=== PATIENT | female | born 1930 | race Caucasian/White ===

== ENCOUNTER → 2016-08-27 | Outpatient (REF) | payer MEDICARE ==
[~2016-08-27] MED LIST: /ONDA4TA OR; ASPI81TA83 OR; ATEN50TA2 OR; ATEN50TA2 PO; COZA100T OR; COZAR PO; DIGO0.12 PO; DIGO0.126 OR; DIGO0.257 OR; DONETAB6 PO; ELIQ2.5T PO; HYDR25TA6 OR; LEVO88TA3 PO; LEVOXYL PO; OMEPPOW18 PO; VENTAER IN; VICO5TAB OR; VITAMIN D 3 PO; mineral oil; ocean nasal spray
[2016-08-27 14:16] LABS: VITAMIN B12 LEVEL 432 PG/ML (247-911)
[2016-08-27 14:17] LABS: FOLATE 19.4 NG/ML (>5.4)
== END ==
LOC: M LABNEURO 09:51
PROVIDERS: ATTEND Psychiatry & Neurology Neurology
DX: F03.90 Unspecified dementia, unspecified severity, without behavioral disturbance, psychotic disturbance, mood disturbance, and anxiety (principal); Z11.3 Encounter for screening for infections with a predominantly sexual mode of transmission

== ENCOUNTER → 2016-08-29 | Outpatient (CLI) | payer MEDICARE ==
[~2016-08-29] VITALS: Ht 157.5 cm; Wt 54.4 kg
[~2016-08-29] MED LIST changes: +LIDOCAINE 2% INJ 100 MG/5 ML SDV (FOR ANES.) As Ordered ONE; +NS 1,000 ML IV SCH; +PROPOFOL 200 MG/20 ML VIAL As Ordered ONE
--- NOTE | 2016-08-29 09:23 | ROOR ---
Patient Name: Afshan Howell Procedure Date: 08/29/2016 8:44 AM Date of : 1930 Age: 86 Room: [facility] Gender: Female Note Status: Finalized Procedure: Colonoscopy Indications: Change in bowel habits Providers: Talha Oviedo Jr, MD Referring MD: SVETLANA HOPE MD Requesting Provider: Medicines: Propofol per Anesthesia Complications: No immediate complications. Procedure: Pre-Anesthesia Assessment: - Prior to the procedure, a History and Physical was performed, and patient medications and allergies were reviewed. The patient is competent. The risks and benefits of the procedure and the sedation options and risks were discussed with the patient. All questions were answered and informed consent was obtained. Patient identification and proposed procedure were verified by the physician and the nurse in the pre-procedure area and in the procedure room. Mental Status Examination: alert and oriented. Airway Examination: normal oropharyngeal airway and neck mobility. Respiratory Examination: clear to auscultation. CV Examination: normal. ASA Grade Assessment: II - A patient with mild systemic disease. After reviewing the risks and benefits, the patient was deemed in satisfactory condition to undergo the procedure. The anesthesia plan was to use moderate sedation / analgesia (conscious sedation). Immediately prior to administration of medications, the patient was re-assessed for adequacy to receive sedatives. The heart rate, respiratory rate, oxygen saturations, blood pressure, adequacy of pulmonary ventilation, and response to care were monitored throughout the procedure. The physical status of the patient was re-assessed after the procedure. The Colonoscope was introduced through the anus and advanced to the cecum, identified by appendiceal orifice and ileocecal valve. The colonoscopy was performed without difficulty. The patient tolerated the procedure well. The quality of the bowel preparation was adequate and good. Findings: The perianal and digital rectal examinations were normal. Pertinent negatives include normal sphincter tone, no palpable rectal lesions and no anal lesion or abnormality was detected. Multiple small and large-mouthed diverticula were found in the sigmoid colon. A medium polyp was found in the transverse colon. The polyp was removed with a hot snare. Resection was complete, but the polyp tissue was only partially retrieved. The entire examined colon, rectum, recto-sigmoid colon, descending colon, transverse colon, ascending colon, cecum and appendiceal orifice appeared normal. Impression: - Diverticulosis in the sigmoid colon. - One medium polyp in the transverse colon, removed with a hot snare. Complete resection. Partial retrieval. - The entire examined colon, rectum, recto-sigmoid colon, descending colon, transverse colon, ascending colon, cecum and appendiceal orifice are normal. Recommendation: - Discharge patient to home (ambulatory). - Repeat colonoscopy in 3 years for surveillance. Talha Oviedo MD Talha Oviedo Jr, MD 08/29/2016 9:22:53 AM This report has been signed electronically. Number of Addenda: 0 Note Initiated On: 08/29/2016 8:44 AM Estimated Blood Loss: Estimated blood loss: none.
[2016-08-29 09:25] VITALS: BP 132/69
== END | disposition home or self-care (01) ==
LOC: M OPP 08:00
PROVIDERS: ATTEND Surgery
DX: R19.4 Change in bowel habit (principal); D12.3 Benign neoplasm of transverse colon; K57.30 Diverticulosis of large intestine without perforation or abscess without bleeding; I48.91 Unspecified atrial fibrillation; I10 Essential (primary) hypertension; E03.9 Hypothyroidism, unspecified; K57.92 Diverticulitis of intestine, part unspecified, without perforation or abscess without bleeding; M19.90 Unspecified osteoarthritis, unspecified site; Z95.0 Presence of cardiac pacemaker; Z85.3 Personal history of malignant neoplasm of breast; Z85.118 Personal history of other malignant neoplasm of bronchus and lung; Z92.3 Personal history of irradiation; F03.90 Unspecified dementia, unspecified severity, without behavioral disturbance, psychotic disturbance, mood disturbance, and anxiety; E66.9 Obesity, unspecified; K21.9 Gastro-esophageal reflux disease without esophagitis; Z88.0 Allergy status to penicillin; Z88.2 Allergy status to sulfonamides; Z91.040 Latex allergy status; Z79.899 Other long term (current) drug therapy; Z80.49 Family history of malignant neoplasm of other genital organs

== ENCOUNTER → 2016-08-30 | Outpatient (CLI) | payer MEDICARE ==
[~2016-08-30] MED LIST changes: -LIDOCAINE 2% INJ 100 MG/5 ML SDV (FOR ANES.) As Ordered ONE; -NS 1,000 ML IV SCH; -PROPOFOL 200 MG/20 ML VIAL As Ordered ONE
--- NOTE | 2016-08-30 09:44 | REP ---
CT HEAD WITHOUT CONTRAST: HISTORY: Dementia. COMPARISON: Areas of decreased attenuation are present in the periventricular white matter. This represents small vessel ischemic disease. There is no intraparenchymal hemorrhage, mass or midline shift. The ventricular system and cortical sulci are dilated consistent with mild volume loss. There is no extracerebral collection. The visualized sinuses are clear. IMPRESSION: 1. Small vessel ischemic disease. 2. Mild volume loss. Signed by Alex Lyons MD 08/30/2016 10:36 A
== END ==
LOC: M RAD 08:06
PROVIDERS: ATTEND Psychiatry & Neurology Neurology
DX: R44.1 Visual hallucinations (principal); R44.0 Auditory hallucinations; F02.80 Dementia in other diseases classified elsewhere, unspecified severity, without behavioral disturbance, psychotic disturbance, mood disturbance, and anxiety; G31.83 Neurocognitive disorder with Lewy bodies

== ENCOUNTER → 2016-09-12 | Outpatient (REF) | payer MEDICARE | LOC: M LABDRAW1 11:38 | PROVIDERS: ATTEND Nurse Practitioner Family | DX: I48.91 Unspecified atrial fibrillation (principal); Z51.81 Encounter for therapeutic drug level monitoring; Z79.899 Other long term (current) drug therapy ==

== ENCOUNTER 2016-09-16 16:45 | Emergency (ER) | payer OTHER, MEDICARE ==
[~2016-09-16] VITALS: Ht 162.6 cm; Wt 63.0 kg
[2016-09-16 18:39] VITALS: O2SAT 96
--- NOTE | 2016-09-16 18:57 | REP ---
AP pelvis: Single view: History: Trauma. Findings: There is some diffuse osteopenia. Vascular calcification is observed. Degenerative disc disease is seen at L4-5. The bony pelvic ring is intact. No hip, pelvic, or sacral fracture is seen. There is osteoarthritic spurring at the left hip, more so than right. There is evidence of an old appearing fracture of the inferior pubic ramus on the left. This is unchanged from an old comparison study and 10/11/2011. Impression: No acute fracture seen. Left hip osteoarthritis and degenerative disc disease. Old inferior pubic ramus fracture on the left. Signed by Chato Ojeda MD 09/16/2016 07:39 P
--- NOTE | 2016-09-16 18:57 | REP ---
Chest x-ray: Two views. History: Trauma. Comparison study: September 26, 2015. Findings: A unipolar pacemaker is again seen in the enlarged heart via the left side. Moderate cardiomegaly is observed. There is blunting of the right lateral and posterior pleural angles. This consistent with small bilateral effusion. There is some pleural thickening which appears to be chronic along the lateral chest wall on the right. There are clips in the right upper quadrant. There are degenerative changes in the thoracic spine. Impression: Moderate cardiomegaly with pacemaker. Blunting of the right pleural angles and chronic pleural thickening on the right. No acute abnormality. Signed by Chato Ojeda MD 09/16/2016 07:38 P
--- NOTE | 2016-09-16 18:58 | REP ---
Left TIB-fib series: Four views: History: Trauma. Findings: Four views of the left tibia and fibula demonstrate that the patient is status post left knee arthroplasty. There is diffuse osteoporosis and vascular calcification. No fracture is seen. Impression: No acute fracture. Signed by Chato Ojeda MD 09/16/2016 07:39 P
--- NOTE | 2016-09-16 18:58 | REP ---
Left ankle series: Four views. History: Trauma. Findings: Four views of the left ankle demonstrate Achilles and the plantar calcaneal spurring. There is diffuse osteoporosis. Advanced vascular calcification is seen. Some midfoot spurring is noted. Ankle mortise is intact. No ankle fracture or subluxation is seen. Impression: No fracture noted. Signed by Chato Ojeda MD 09/16/2016 07:39 P
--- NOTE | 2016-09-16 18:58 | REP ---
Right knee series: Five views. History: Trauma. Findings: Five views of the right knee show advanced diffuse osteoporosis. There is advanced three compartment osteoarthritis of the knee. Chondrocalcinosis is noted. There is no visible fracture or subluxation. Impression: Osteoporosis and advanced osteoarthritis. No fracture or other acute abnormality. Signed by Chato Ojeda MD 09/16/2016 07:39 P
[2016-09-16 19:13] VITALS: BP 124/69
== END 2016-09-16 19:17 | disposition home or self-care (01) ==
LOC: EDBD 16:45 → M ED 17:39
DX: S80.02XA Contusion of left knee, initial encounter (principal); V49.50XA Passenger injured in collision with unspecified motor vehicles in traffic accident, initial encounter; Y92.410 Unspecified street and highway as the place of occurrence of the external cause; Y93.89 Activity, other specified; Y99.8 Other external cause status; I48.91 Unspecified atrial fibrillation; I10 Essential (primary) hypertension; F03.90 Unspecified dementia, unspecified severity, without behavioral disturbance, psychotic disturbance, mood disturbance, and anxiety; Z95.0 Presence of cardiac pacemaker; Z79.01 Long term (current) use of anticoagulants; Z91.040 Latex allergy status; Z88.0 Allergy status to penicillin; Z88.2 Allergy status to sulfonamides; Z79.899 Other long term (current) drug therapy; Z85.118 Personal history of other malignant neoplasm of bronchus and lung; E03.9 Hypothyroidism, unspecified

== ENCOUNTER → 2016-12-16 | Outpatient (REF) | payer MEDICARE ==
[2016-12-16 12:57] LABS: MEAN CORPUSCULAR HEMOGLOBIN 33.4 pg (27.0-33.0); MEAN CORPUSCULAR HGB CONC 33.8 g/dl (32.0-36.5); MEAN CORPUSCULAR VOLUME 98.8 fl (80.0-96.0); RED CELL DISTRIBUTION WIDTH 13.2 % (11.5-14.5); WHITE BLOOD COUNT 5.7 K/mm3 (4.0-10.0)
[2016-12-16 14:55] LABS: ALBUMIN 3.5 GM/DL (3.2-5.2); ALBUMIN/GLOBULIN RATIO 1.13 (1.00-1.93); ALKALINE PHOSPHATASE 60 U/L (45-117); ALT/SGPT 18 U/L (12-78); ANION GAP 9 MEQ/L (8-16); AST/SGOT 18 U/L (15-37); BILIRUBIN,TOTAL 1.2 MG/DL (0.2-1.0); BLOOD UREA NITROGEN 12 MG/DL (7-18); CARBON DIOXIDE LEVEL 26 MEQ/L (21-32); CHLORIDE LEVEL 107 MEQ/L (98-107); CHOLESTEROL LEVEL 191 MG/DL (<200); FREE T4 1.46 NG/DL (0.76-1.46); GLOMERULAR FILTRATION RATE > 60.0 (>32); GLUCOSE, FASTING 90 MG/DL (83-110); POTASSIUM SERUM 4.1 MEQ/L (3.5-5.1); SODIUM LEVEL 142 MEQ/L (136-145); TOTAL PROTEIN 6.6 GM/DL (6.4-8.2); TRIGLYCERIDES LEVEL 152 MG/DL (<150)
== END ==
LOC: M LABNEURO 12:17
PROVIDERS: ATTEND Nurse Practitioner Family
DX: E78.00 Pure hypercholesterolemia, unspecified (principal); I10 Essential (primary) hypertension; E55.9 Vitamin D deficiency, unspecified

== ENCOUNTER → 2018-01-15 | Outpatient (CLI) | payer MEDICARE ==
[~2018-01-15] MED LIST changes: -/ONDA4TA OR; -ASPI81TA83 OR; -ATEN50TA2 OR; -ATEN50TA2 PO; -COZA100T OR; -COZAR PO; -DIGO0.12 PO; -DIGO0.126 OR; -DIGO0.257 OR; -DONETAB6 PO; +E-Z-GAS II EFFERVESCENT PACKET (SODIUM BICARB./CITRIC ACID/SIMETHICONE) As Ordered; +E-Z-HD 98% w/w 340GM SUSP BTL As Ordered; +E-Z-PAQUE 96% w/w SUSP 176GM BTL As Ordered; -ELIQ2.5T PO; -HYDR25TA6 OR; -LEVO88TA3 PO; -LEVOXYL PO; -OMEPPOW18 PO; -VENTAER IN; -VICO5TAB OR; -VITAMIN D 3 PO; -mineral oil; -ocean nasal spray
== END ==
LOC: M RAD 08:00
DX: R05 Cough (principal); R13.10 Dysphagia, unspecified; K21.9 Gastro-esophageal reflux disease without esophagitis
CPT/HCPCS: 74241

== ENCOUNTER → 2018-01-28 | Outpatient (CLI) | payer MEDICARE ==
[2018-01-28 18:26] LABS: BASO # 0.1 10^3/uL (0.0-0.2); BASO % 0.9 % (0.0-1.0); EOS # 0.3 10^3/uL (0.0-0.50); EOS % 4.6 % (0.0-3.0); HEMATOCRIT 41.6 % (36.0-47.0); HEMOGLOBIN 14.3 g/dl (12.0-15.5); IMMATURE GRANULOCYTE % 0.3 % (0-3.0); LYMPH # 1.7 10^3/uL (1.5-4.5); LYMPH % 23.3 % (24.0-44.0); MEAN CORPUSCULAR HGB CONC 34.4 g/dl (32.0-36.5); MEAN CORPUSCULAR VOLUME 93.1 fl (80.0-96.0); MONO # 0.9 10^3/uL (0.0-0.8); MONO % 12.3 % (0.0-5.0); NEUTROPHILS # 4.4 10^3/uL (1.8-7.7); NEUTROPHILS % 58.6 % (36.0-66.0); PLATELET COUNT, AUTOMATED 251 10^3/uL (150-450); RED BLOOD COUNT 4.47 10^6/uL (4.00-5.40); RED CELL DISTRIBUTION WIDTH 12.5 % (11.5-14.5); WHITE BLOOD COUNT 7.4 10^3/uL (4.0-10.0)
[2018-01-28 18:59] LABS: C REACTIVE PROTEIN QUANTITATIV < 0.30 MG/DL (0.00-0.30)
[2018-01-28 19:52] LABS: ERYTHROCYTE SEDIMENTATION RATE 28 mm/hr (0-42)
== END ==
LOC: M LAB 16:47
DX: M17.11 Unilateral primary osteoarthritis, right knee (principal)
CPT/HCPCS: 86140

== ENCOUNTER 2018-02-26 09:01 | Day surgery (SDC) | payer MEDICARE ==
[2018-02-26] MEDS ORDERED: fentaNYL 100 MCG/2 ML INJECTION (J3010) As Ordered (09:59)
[2018-02-26] MEDS ORDERED: LIDOCAINE 2% INJ 100 MG/5 ML SYRINGE As Ordered (09:59)
[2018-02-26] MEDS ORDERED: PROPOFOL 200 MG/20 ML VIAL As Ordered (09:59)
== END 2018-02-26 11:31 | disposition home or self-care (01) ==
LOC: M OPP 09:01
DX: R63.4 Abnormal weight loss (principal); R68.81 Early satiety; K31.89 Other diseases of stomach and duodenum; I48.91 Unspecified atrial fibrillation; I10 Essential (primary) hypertension; Z95.0 Presence of cardiac pacemaker; E03.9 Hypothyroidism, unspecified; K57.32 Diverticulitis of large intestine without perforation or abscess without bleeding; M19.90 Unspecified osteoarthritis, unspecified site; F03.90 Unspecified dementia, unspecified severity, without behavioral disturbance, psychotic disturbance, mood disturbance, and anxiety; Z78.0 Asymptomatic menopausal state; Z85.118 Personal history of other malignant neoplasm of bronchus and lung; Z92.3 Personal history of irradiation; Z85.3 Personal history of malignant neoplasm of breast; Z96.652 Presence of left artificial knee joint; Z88.0 Allergy status to penicillin; Z88.2 Allergy status to sulfonamides; Z91.040 Latex allergy status; Z79.01 Long term (current) use of anticoagulants; Z79.899 Other long term (current) drug therapy; Z80.8 Family history of malignant neoplasm of other organs or systems
CPT/HCPCS: 43235

== ENCOUNTER → 2018-06-15 | Outpatient (REF) | payer MEDICARE ==
[~2018-06-15] MED LIST changes: +/ONDA4TA OR; +ASPI81TA83 OR; +ATEN50TA2 OR; +ATEN50TA2 PO; +COZA100T OR; +COZAR PO; +DIGO0.12 PO; +DIGO0.126 OR; +DIGO0.257 OR; +DONETAB6 PO; -E-Z-GAS II EFFERVESCENT PACKET (SODIUM BICARB./CITRIC ACID/SIMETHICONE) As Ordered; -E-Z-HD 98% w/w 340GM SUSP BTL As Ordered; -E-Z-PAQUE 96% w/w SUSP 176GM BTL As Ordered; +ELIQ2.5T PO; +HYDR25TA6 OR; +LEVO88TA3 PO; +LEVOXYL PO; +OMEPPOW18 PO; +VENTAER IN; +VICO5TAB OR; +VITAMIN D 3 PO; +mineral oil; +ocean nasal spray
[2018-06-15 13:49] LABS: HEMATOCRIT 40.8 % (36.0-47.0); HEMOGLOBIN 13.6 g/dl (12.0-15.5); MEAN CORPUSCULAR HEMOGLOBIN 31.8 pg (27.0-33.0); MEAN CORPUSCULAR HGB CONC 33.3 g/dl (32.0-36.5); MEAN CORPUSCULAR VOLUME 95.3 fl (80.0-96.0); PLATELET COUNT, AUTOMATED 205 10^3/uL (150-450); RED BLOOD COUNT 4.28 10^6/uL (4.00-5.40)
[2018-06-15 14:10] LABS: ALBUMIN 3.8 GM/DL (3.2-5.2); ALT/SGPT 20 U/L (12-78); BILIRUBIN,TOTAL 1.4 MG/DL (0.2-1.0); BLOOD UREA NITROGEN 17 MG/DL (7-18); CALCIUM LEVEL 9.2 MG/DL (8.8-10.2); CARBON DIOXIDE LEVEL 29 MEQ/L (21-32); CHLORIDE LEVEL 104 MEQ/L (98-107); CHOLESTEROL LEVEL 202 MG/DL (<200); CHOLESTEROL RISK RATIO 2.493 (<5); CPK CREATINE PHOSPHOKINASE 71 U/L (26-192); CREATININE FOR GFR 0.88 MG/DL (0.55-1.30); FREE T4 1.45 NG/DL (0.76-1.46); GLOMERULAR FILTRATION RATE > 60.0 (>32); GLUCOSE, FASTING 85 MG/DL (70-100); HDL CHOLESTEROL 81 MG/DL (>40); LDL CHOLESTEROL 94 MG/DL (<100); NON-HDL-C 121 MG/DL; SODIUM LEVEL 141 MEQ/L (136-145); TOTAL 25(OH) VITAMIN D 90.1 NG/ML (30.0-100.0); TOTAL PROTEIN 7.1 GM/DL (6.4-8.2); TRIGLYCERIDES LEVEL 137 MG/DL (<150)
== END ==
LOC: M LABNEURO 09:12
PROVIDERS: ATTEND Internal Medicine Cardiovascular Disease
DX: E78.00 Pure hypercholesterolemia, unspecified (principal); I10 Essential (primary) hypertension; E03.9 Hypothyroidism, unspecified; E55.9 Vitamin D deficiency, unspecified

== ENCOUNTER → 2018-10-02 | Outpatient (REF) | payer MEDICARE ==
[~2018-10-02] MED LIST changes: -/ONDA4TA OR; +ONDA-1 OR
== END ==
LOC: M LAB REF 16:09
PROVIDERS: ATTEND Nurse Practitioner Family
DX: R35.0 Frequency of micturition (principal)

== ENCOUNTER → 2018-10-22 | Outpatient (REF) | payer MEDICARE ==
[2018-10-22 13:56] LABS: APPEARANCE, URINE CLEAR (CLEAR); BACTERIA, URINE AUTO 1+ (NEGATIVE); BILIRUBIN, URINE AUTO NEGATIVE (NEGATIVE); BLOOD, URINE BLOOD NEGATIVE (NEGATIVE); COLOR, URINE STRAW (YELLOW); GLUCOSE, URINE (UA) AUTO NEGATIVE (NEGATIVE); KETONE, URINE AUTO NEGATIVE (NEGATIVE); LEUKOCYTE ESTERASE, URINE AUTO 3+ (NEGATIVE); MUCUS, URINE SMALL (NEGATIVE); NITRITE, URINE AUTO NEGATIVE (NEGATIVE); PROTEIN, URINE AUTO NEGATIVE (NEGATIVE); RBC, URINE AUTO 8 /HPF (0-3); SPECIFIC GRAVITY URINE AUTO 1.003 (1.002-1.035); SQUAMOUS EPITHELIAL CELL UR AU 1 /HPF (0-6); UROBILINOGEN, URINE AUTO 0.2 mg/dL (0.0-2.0); WBC, URINE AUTO 20 /HPF (0-3)
== END ==
LOC: M LAB REF 13:08
PROVIDERS: ATTEND Internal Medicine Cardiovascular Disease
DX: N39.0 Urinary tract infection, site not specified (principal)

== ENCOUNTER → 2018-10-23 | Outpatient (CLI) | payer MEDICARE, MEDICAID ==
--- NOTE | 2018-10-24 11:59 | EEG ---
DATE OF PROCEDURE: 10/23/2018 DIAGNOSIS: Altered mental status. EEG NUMBER: [id number] HISTORY: Patient is an 88-year-old woman who has worsening altered mental status and has episodes of staring off and family is unable to redirect her. This EEG was done to rule out epileptic potential. She is currently taking atenolol, Eliquis, Namenda, Aricept, cetirizine, levothyroxine, melatonin. TECHNICAL DESCRIPTION: This digital EEG was recorded by 21 scalp, ear and two EKG electrodes and was reviewed in bipolar and referential montages following reformatting 10-20 international electrode placement system. INTERPRETATION: Patient was noted to be in awake, drowsy and confused state during this EEG. Patient was unable to follow commands. Background rhythm consisted of 6-7 Hz theta activity measuring 5-15 microvolts in amplitude, which was symmetric bilaterally. Excessive muscle artifact was seen in bilateral temporal head regions. EKG revealed normal sinus rhythm. No focal, lateralizing or epileptiform abnormalities were seen. No sleep was achieved. No relevant clinical activity was noted. CONCLUSION: This EEG in awake and drowsy state is abnormal due to presence of generalized slowing, low amplitude and disorganization of background consistent with nonspecific diffuse cerebral dysfunction such as seen in dementia and encephalopathy. Clinical correlation is recommended.
== END ==
LOC: M SLEEP 08:20
PROVIDERS: ATTEND Psychiatry & Neurology Neurology
DX: R41.82 Altered mental status, unspecified (principal)

== ENCOUNTER → 2018-11-13 | Outpatient (REF) | payer MEDICARE, MEDICAID ==
[~2018-11-13] MED LIST changes: +CIPR-250 PO; +DONE10TA90 PO; +KEPP1TAB PO; +LEVO75TA4 PO; +LEVOTAB10 PO; +MELA1TAB9 PO; +MELATAB3 PO; +MEMA1TAB PO; +QUET1TAB7 PO; +VITA1CAP25 PO; +VITAD1000T PO
== END ==
LOC: M LAB REF 12:14
PROVIDERS: ATTEND Nurse Practitioner Family
DX: N39.0 Urinary tract infection, site not specified (principal)

== ENCOUNTER 2018-11-16 15:38 | Observation (INO) | payer MEDICARE, MEDICAID ==
[~2018-11-16] VITALS: Ht 160 cm; Wt 49.4 kg
[~2018-11-16 15:38] MED LIST changes: -CIPR-250 PO; -DONE10TA90 PO; -KEPP1TAB PO; -LEVO75TA4 PO; -LEVOTAB10 PO; -MELA1TAB9 PO; -MELATAB3 PO; -MEMA1TAB PO; -QUET1TAB7 PO; -VITA1CAP25 PO; -VITAD1000T PO
[2018-11-16] MEDS ORDERED: MEMA1TAB PO (17:37)
[2018-11-16] MEDS ORDERED: MELA1TAB9 PO (17:37)
[2018-11-16] MEDS ORDERED: LEVO75TA4 PO (17:37)
[2018-11-16] MEDS ORDERED: LEVOTAB10 PO (17:37)
[2018-11-16] MEDS ORDERED: VITAD1000T PO (17:37)
[2018-11-16] MEDS ORDERED: QUET1TAB7 PO (17:37)
[2018-11-16 18:29] LABS: BASO # 0.1 10^3/uL (0.0-0.2); BASO % 0.9 % (0.0-1.0); EOS # 0.2 10^3/uL (0.0-0.50); EOS % 3.6 % (0.0-3.0); HEMATOCRIT 37.6 % (36.0-47.0); HEMOGLOBIN 12.3 g/dl (12.0-15.5); LYMPH # 1.4 10^3/uL (1.5-4.5); LYMPH % 21.4 % (24.0-44.0); MEAN CORPUSCULAR HEMOGLOBIN 31.2 pg (27.0-33.0); MEAN CORPUSCULAR HGB CONC 32.7 g/dl (32.0-36.5); MEAN CORPUSCULAR VOLUME 95.4 fl (80.0-96.0); MONO # 0.8 10^3/uL (0.0-0.8); MONO % 12.7 % (0.0-5.0); NEUTROPHILS % 61.1 % (36.0-66.0); PLATELET COUNT, AUTOMATED 209 10^3/uL (150-450); RED BLOOD COUNT 3.94 10^6/uL (4.00-5.40); WHITE BLOOD COUNT 6.6 10^3/uL (4.0-10.0)
[2018-11-16 19:18] LABS: ALBUMIN 3.5 GM/DL (3.2-5.2); ALT/SGPT 20 U/L (12-78); BILIRUBIN,DIRECT 0.3 MG/DL (0.0-0.2); BILIRUBIN,TOTAL 1.2 MG/DL (0.2-1.0); BLOOD UREA NITROGEN 10 MG/DL (7-18); CARBON DIOXIDE LEVEL 30 MEQ/L (21-32); CHLORIDE LEVEL 107 MEQ/L (98-107); CK-MB VALUE MASS 1.8 NG/ML (<3.6); CPK CREATINE PHOSPHOKINASE 95 U/L (26-192); CREATININE FOR GFR 0.83 MG/DL (0.55-1.30); FREE T4 1.46 NG/DL (0.76-1.46); GLOMERULAR FILTRATION RATE > 60.0 (>32); GLUCOSE, FASTING 86 MG/DL (70-100); MB/CK RELATIVE INDEX 1.89 (< OR =4); NT-PRO BNP 2225 PG/ML (<450); POTASSIUM SERUM 3.7 MEQ/L (3.5-5.1); SODIUM LEVEL 142 MEQ/L (136-145); TROPONIN I < 0.02 NG/ML (< 0.10)
--- NOTE | 2018-11-16 19:34 | REP ---
Chest x-ray: Two views. History: Fluid retention. Evaluate for pulmonary edema. Comparison study: September 16, 2016. Findings: There is some blunting of the right lateral and both posterior pleural angles consistent with small amounts of bilateral pleural fluid, right more so than left. This is similar to the prior study however in September 2016. There are old healed rib fractures on the right. Moderate cardiac enlargement is observed unchanged. A unipolar pacemaker is seen in the right heart via the left subclavian vein region. There are degenerative changes in the thoracic spine. Pulmonary vasculature is not increased. The aorta is tortuous. Impression: Moderate cardiomegaly with pacemaker. Blunting of the right lateral and both posterior pleural angles appears chronic. Possible small bilateral effusions. No significant change from September 16, 2016. Electronically Signed by Chato Ojeda MD 11/16/2018 07:46 P
[2018-11-16] MEDS ORDERED: FUROSEMIDE 20 MG TAB PO ONE (19:45)
--- NOTE | 2018-11-16 22:01 | REPVR ---
EXAM: US Duplex Left Lower Extremity Veins, Limited EXAM DATE/TIME: 11/16/2018 8:57 PM CLINICAL HISTORY: 88 years old, female; Signs and symptoms; Edema, localized; Lower extremity, left; Additional info: Christian TECHNIQUE: Imaging protocol: Real-time Duplex ultrasound of the Left Lower Extremity with 2-D choudhary scale, color Doppler flow and spectral waveform analysis. Limited exam focused on the left lower extremity veins. COMPARISON: US Duplex, Ext,LOWER veins,unilat 08/14/2012 11:57 AM FINDINGS: Left deep veins: Unremarkable. The common femoral, femoral and popliteal veins are patent without thrombus. Normal compressibility, augmentation response and Doppler waveforms. Left superficial veins: Unremarkable. Saphenofemoral junction is patent without thrombus. Soft tissues: Unremarkable. IMPRESSION: No sonographic evidence of deep vein thrombosis. Electronically signed by: Satish Martin On 11/16/2018 22:01:46 PM
[2018-11-16 23:15] LABS: APPEARANCE, URINE MANUAL HAZY (CLEAR); COLOR, URINE MANUAL LT YELLOW (YELLOW)
[2018-11-16 23:16] LABS: BILIRUBIN, URINE MANUAL NEGATIVE (NEGATIVE); BLOOD URINE MANUAL TRACE (NEGATIVE); GLUCOSE, URINE (UA) MANUAL NEGATIVE (NEGATIVE); KETONE, URINE MANUAL NEGATIVE (NEGATIVE); LEUKOCYTE ESTERASE, URINE MAN OBSCURED (NEGATIVE); NITRITE, URINE MANUAL POSITIVE (NEGATIVE); PROTEIN, URINE MANUAL NEGATIVE (NEGATIVE); UROBILINOGEN, URINE MANUAL NORMAL (NORMAL)
[2018-11-16 23:25] LABS: WBC, URINE 20-30 /hpf (0-3)
[2018-11-16 23:26] LABS: BACTERIA, URINE LARGE AMOUNT; HYALINE CAST, URINE NONE SEEN /lpf (0-1); SQUAMOUS EPITHELIAL CELL URINE SMALL AMOUNT /hpf (SMALL AMT)
[2018-11-17] MEDS ORDERED: LEVOTAB10 PO (00:19)
[2018-11-17] MEDS ORDERED: DONE10TA90 PO (00:19)
[2018-11-17] MEDS ORDERED: MEMA1TAB PO (00:19)
[2018-11-17] MEDS ORDERED: VITA1CAP25 PO (00:19)
[2018-11-17] MEDS ORDERED: MELATAB3 PO (00:19)
[2018-11-17] MEDS ORDERED: KEPP1TAB PO (00:20)
[2018-11-17] MEDS ORDERED: traMADol 50 MG TAB PO ONE (02:15)
[2018-11-17] MEDS ORDERED: ACETAMINOPHEN TAB 650MG DOSE (2X325MG) PO PRN (06:30)
--- NOTE | 2018-11-17 07:23 | HPEPDOC ---
[facility] Medical History & Physical Date of Admission Nov 17, 2018 Date of Service: Nov 17, 2018 History and Physical CHIEF COMPLAINT: Foot swelling, decrease oral intake HISTORY OF PRESENT ILLNESS: [place] 88-year-old female with dementia, hypertension, hypothyroid, lung cancer status post resection, atrial fibrillation on Eliquis brought in by family because of poor by mouth intake for the past several weeks along with slightly increased foot swelling. Patient herself denies any symptoms and is not aware why she is in the hospital. She does live alone but right next to a family member's house and has been working on getting home care arranged for her so she doesn't have to get placement. She received a dose of Lasix in ER. By the time she was assessed no significant swelling were noted and no obvious evidence of fluid overload. Most history obtained from daughter. PAST MEDICAL HISTORY: Refer to [facility] PAST SURGICAL HISTORY: Lung resection Umbilical surgery Cholecystectomy Left knee replacement Left mastectomy SOCIAL HISTORY: Denies tobacco, alcohol or illicit drug use. FAMILY HISTORY: None reported ALLERGIES: Please see below. REVIEW OF SYSTEMS: 10 point review of system negative except as stated in [facility] HOME MEDICATIONS: Please see below. PHYSICAL EXAMINATION: General: No acute distress, Alert Eyes: Normal sclera, EOMI, CANDACE HENT: Atraumatic, neck supple, moist mucous membranes Cardiovascular: Normal rate, normal rhythm. No murmurs appreciated. Pulmonary: Clear to auscultation b/l, no wheezing GI: Soft, nontender, nondistended Skin: Warm and dry Neuro: CN grossly intact. No focal deficits. Psych: oriented x 3 LABORATORY DATA: See below. IMAGING: CXR- Impression: Moderate cardiomegaly with pacemaker. Blunting of the right lateral and both posterior pleural angles appears chronic. Possible small bilateral effusions. No significant change from September 16, 2016. Vascular US LE- No evidence of DVT MICROBIOLOGY: Please see below. ASSESSMENT AND PLAN: 1. LE swelling - Not noted. Unsure if it is related to the heart. - Will obtain ECHO. - hold diuresis for now. 2. Dementia 3. Hypothyroidism - resume home meds 4. Poor PO intake - will need close monitoring and assistance. - patient may need placement? more than home care. - CM consulted. 5. Afib - C/w Eliquis. - rate controlled. 6. UTI - UA with + LE and Nitrite. - Unsure if patient has symptoms as she has dementia. - Daughter states that she does have some urinary symptoms with kidney pain. - Afebrile with no leukocytosis. Will start on Abx. DVT ppx: Eliquis Code status: Full code Vital Signs Vital Signs Date Time Temp Pulse Resp B/P (MAP) Pulse Ox O2 Delivery O2 Flow Rate FiO2 11/17/18 07:06 98.8 69 18 145/69 (94) 99 Room Air Laboratory Data Labs 24H Laboratory Tests 2 11/16/18 18:15: Immature Granulocyte % (Auto) 0.3, White Blood Count 6.6, Red Blood Count 3.94L, Hemoglobin 12.3, Hematocrit 37.6, Mean Corpuscular Volume 95.4, Mean Corpuscular Hemoglobin 31.2, Mean Corpuscular Hemoglobin Concent 32.7, Red Cell Distribution Width 13.7, Platelet Count 209, Neutrophils (%) (Auto) 61.1, Lymphocytes (%) (Auto) 21.4L, Monocytes (%) (Auto) 12.7H, Eosinophils (%) (Auto) 3.6H, Basophils (%) (Auto) 0.9, Neutrophils # (Auto) 4.0, Lymphocytes # (Auto) 1.4L, Monocytes # (Auto) 0.8, Eosinophils # (Auto) 0.2, Basophils # (Auto) 0.1, Nucleated Red Blood Cells % (auto) 0.0, Anion Gap 5L, Glomerular Filtration Rate > 60.0, Calcium Level 9.0, Aspartate Amino Transf (AST/SGOT) 32, Alanine Aminotransferase (ALT/SGPT) 20, Alkaline Phosphatase 54, Total Bilirubin 1.2H, Direct Bilirubin 0.3H, Total Creatine Kinase 95, Creatine Kinase MB 1.8, Creatine Kinase MB Relative Index 1.89, Troponin I < 0.02, HD-Ues-N-Type Natriuretic Peptide 2225H, Total Protein 7.0, Albumin 3.5, Albumin/Globulin Ratio 1.00, Thyroid Stimulating Hormone (TSH) 4.560H, Free Thyroxine 1.46 11/16/18 22:36: Bedside Urine Color (LAB) LT YELLOW, Bedside Urine Appearance (LAB) HAZYH, Beds marco antonio Urine pH (LAB) 6.0, Bedside Urine Specific [place] (LAB 1.010, Bedside Urine Protein (LAB) NEGATIVE, Bedside Urine Glucose (UA) NEGATIVE, Bedside Urine Ketones (LAB) NEGATIVE, Bedside Urine Blood TRACEH, Bedside Urine Nitrite (LAB) POSITIVEH, Bedside Urine Bilirubin (LAB) NEGATIVE, Bedside Urine Urobilinogen (LAB) NORMAL, Bedside Urine Leukocyte Esterase (L OBSCUREDH, Urine WBC 20-30H, Urine RBC 1-3, Urine Squamous Epithelial Cells SMALL AMOUNT, Urine Bacteria LARGE AMOUNTH, Urine Hyaline Casts NONE SEEN, Urine Sediment Examination PERFORMED CBC/BMP Laboratory Tests 11/16/18 18:15 Red Blood Count 3.94 L, Mean Corpuscular Volume 95.4, Mean Corpuscular Hemoglobin 31.2, Mean Corpuscular Hemoglobin Concent 32.7, Red Cell Distribution Width 13.7, Neutrophils (%) (Auto) 61.1, Lymphocytes (%) (Auto) 21.4 L, Monocytes (%) (Auto) 12.7 H, Eosinophils (%) (Auto) 3.6 H, Basophils (%) (Auto) 0.9, Neutrophils # (Auto) 4.0, Lymphocytes # (Auto) 1.4 L, Monocytes # (Auto) 0.8, Eosinophils # (Auto) 0.2, Basophils # (Auto) 0.1 Microbiology Microbiology 11/16/18 Urine Culture, Received Pending Home Medications Scheduled Apixaban (Eliquis) 2.5 Mg Tab, 2.5 MG PO BID Atenolol (Atenolol) 50 Mg Tab, 50 MG PO BID Cholecalciferol (Vitamin D3) (Vitamin D3) 50,000 Unit Capsule, 50,000 UNIT PO MTHLY FIRST FRIDAY OF EACH MONTH Digoxin (Digoxin) 125 Mcg Tab, 125 MCG PO DAILY Donepezil HCl (Donepezil HCl) 10 Mg Tablet, 10 MG PO QHS Levetiracetam (Keppra) 500 Mg Tablet, 500 MG PO BID Levocetirizine Dihydrochloride (Levocetirizine Dihydrochloride) 5 Mg Tablet, 5 MG PO QHS Levothyroxine Sodium (Levothyroxine Sodium) 75 Mcg Tablet, 75 MG PO DAILY Melatonin (Melatonin) 5 Mg Tablet, 5 MG PO QHS Memantine HCl (Memantine HCl) 5 Mg Tablet, 5 MG PO QHS Allergies Coded Allergies: Penicillins (Verified Allergy, Unknown, 11/16/18) Sulfa (Sulfonamide Antibiotics) (Verified Allergy, Unknown, 11/16/18) latex (Verified Allergy, Unknown, 11/16/18) A-FIB/CHADSVASC A-FIB History Current/History of A-Fib/PAF?: Yes Current PO Anticoag Therapy: Yes ALEJANDRA TRAN MD Nov 17, 2018 07:23
[2018-11-17] MEDS ORDERED: NS 1,000 ML IV SCH (07:30)
[2018-11-17] MEDS ORDERED: FUROSEMIDE 40 MG/4 ML VIAL (J1940) IV ONE (07:45)
[2018-11-17 07:51] VITALS: BP 134/85
[2018-11-17 08:01] LABS: HEMATOCRIT 43.6 % (36.0-47.0); MEAN CORPUSCULAR HEMOGLOBIN 31.7 pg (27.0-33.0); PLATELET COUNT, AUTOMATED 261 10^3/uL (150-450); RED BLOOD COUNT 4.54 10^6/uL (4.00-5.40); WHITE BLOOD COUNT 8.4 10^3/uL (4.0-10.0)
[2018-11-17 08:05] LABS: HEMOGLOBIN 14.4 g/dl (12.0-15.5)
--- NOTE | 2018-11-17 08:11 | ECGEPIP ---
[facility] - ED Test Date: 2018-11-16 Pat Name: FLORES CORRALES Department: Room: - Gender: Female [employer]: : 1930 Requested By: TIFFANI Barnes Order Number: [id number] Reading MD: Ankur Hernández Measurements Intervals [place] Rate: 73 P: WI: -1 QRS: QRSD: 97 T: 71 QT: 361 QTc: 400 Interpretive Statements ATRIAL FIBRILLATION ELECTRONIC VENTRICULAR PACEMAKER -- CONTOUR ANALYSIS BASED ON INTRINSIC RHYTHM NONSPECIFIC ST & T-WAVE ABNORMALITY SIMILAR TO 09/26/15 Electronically Signed on 11-17-2018 8:11:16 EDT by Ankur Hernández
[2018-11-17 08:35] LABS: ALBUMIN 4.1 GM/DL (3.2-5.2); ALT/SGPT 22 U/L (12-78); BILIRUBIN,TOTAL 1.8 MG/DL (0.2-1.0); BLOOD UREA NITROGEN 9 MG/DL (7-18); CALCIUM LEVEL 9.7 MG/DL (8.8-10.2); CARBON DIOXIDE LEVEL 31 MEQ/L (21-32); CHLORIDE LEVEL 100 MEQ/L (98-107); CPK CREATINE PHOSPHOKINASE 122 U/L (26-192); CREATININE FOR GFR 1.05 MG/DL (0.55-1.30); GLOMERULAR FILTRATION RATE 52.9 (>32); GLUCOSE, FASTING 105 MG/DL (70-100); MB/CK RELATIVE INDEX 1.64 (< OR =4); NT-PRO BNP 2087 PG/ML (<450); POTASSIUM SERUM 3.3 MEQ/L (3.5-5.1); SODIUM LEVEL 142 MEQ/L (136-145); TOTAL PROTEIN 8.3 GM/DL (6.4-8.2); TROPONIN I < 0.02 NG/ML (< 0.10)
--- NOTE | 2018-11-17 08:59 | REP ---
CHEST, TWO VIEWS: Two views of the chest are performed and compared to a prior study of 11/16/2018 as well as other prior exams. Once again there are chronic pleural and parenchymal opacities in the right base. There is mild biapical pleural thickening. No new infiltrate is seen. There is mild cardiomegaly. There is calcification and tortuous of the thoracic aorta. The mediastinal silhouette is unchanged. Left single lead pacemaker is noted. There are degenerative changes of the spine. IMPRESSION: Stable chronic pleural and parenchymal changes in the right lung base with no evidence of acute infiltrate. Mild cardiomegaly. Electronically Signed by Ken Guillen MD 11/17/2018 12:44 P
[2018-11-17] MEDS: DIGOXIN 0.125 MG TAB PO SCH (09:16)
[2018-11-17] MEDS: APIXABAN 2.5 MG TAB (ELIQUIS) PO SCH ×2 (09:16→21:25)
[2018-11-17] MEDS: levETIRAcetam 250MG TABLET (KEPPRA) PO SCH ×2 (09:17→21:24)
[2018-11-17] MEDS: LEVOTHYROXINE 75MCG TABLET (0.075MG) PO SCH (09:17)
[2018-11-17] MEDS: ATENOLOL 50 MG TAB PO SCH ×2 (09:17→21:25)
[2018-11-17 10:00] VITALS: BP 99/58
[2018-11-17] MEDS ORDERED: POTASSIUM CHLORIDE 10 MEQ SR TABLET PO ONE (13:00)
--- NOTE | 2018-11-17 13:35 | IPNPDOC ---
Date Seen The patient was seen on 11/17/18. Progress Note SUBJECTIVE: Patient was seen and examined at the bedside with her two daughters present. She seemed agitated,but managed well by re-orientation and still cooperative. Per one daughter, she lives in an apartment attached to her daughter's home, and has paid help for extra hours of supervision when her children cannot be with her. for the past one month, pt has declined with worsening dementia now with auditory hallucinations, and delusions , feeling that there is a "candid camera" which started after mother's day. She c/o leg cramps, k was low and supplemented. Pt denies sob. repeat cxr: no edema. s/p lasix. Per daughter, pt has been taking more salt lately, and per Dr. Baron her weight should not be less than 124lbs. Pt has had decreasing appetite, but likes to eat peaches, applesauce. Family wants her home, and can provide supervision and paid help. She denies any dysuria, urgency, frequency, but at times c/o flank pain without fever or chills. She was recently treated for uti with macrodantin. OBJECTIVE: PHYSICAL EXAMINATION: General: No acute distress, Alert Eyes: Normal sclera, EOMI, CANDACE HENT: Atraumatic, neck supple, moist mucous membranes Cardiovascular: Normal rate, normal rhythm. No murmurs appreciated. Pulmonary: Clear to auscultation b/l, no wheezing GI: Soft, nontender, nondistended Skin: Warm and dry Neuro: CN grossly intact. No focal deficits. Psych: oriented x 3 LABORATORY DATA, IMAGING STUDIES, MICROBIOLOGY: See below. IMAGING: CXR- Impression: Moderate cardiomegaly with pacemaker. Blunting of the right lateral and both posterior pleural angles appears chronic. Possible small bilateral effusions. No significant change from September 16, 2016. Vascular US LE- No evidence of DVT MICROBIOLOGY: Please see below. ASSESSMENT AND PLAN: [place] 88-year-old female with dementia, hypertension, hypothyroid, lung cancer status post resection, atrial fibrillation on Eliquis brought in by family because of poor by mouth intake for the past several weeks along with slightly increased foot swelling. Patient herself denies any symptoms and is not aware why she is in the hospital. She does live alone but right next to a family member's house and has been working on getting home care arranged for her so she doesn't have to get placement. She received a dose of Lasix in ER. By the time she was assessed no significant swelling were noted and no obvious evidence of fluid overload. Most history obtained from daughter. CHF, unknown EF Echo done, report pending strict i/o s/p lasix with improvement us LE: no dvt due to salt intake and dietary indiscretion UTI start on macrodantin await cx results Dementia with delusion and auditory hallucinations per family, they had tried different meds for , but nothing has worked family can provide care and prefers pt to be discharged home once stable Leg cramps supplemented potassium check magnesium and calcium Hypothyroidism - resumed home meds Poor PO intake - will need close monitoring and assistance. -electrode turner and finisher consulted -check digoxin to rule out toxicity Afib - C/w Eliquis. - rate controlled. -r/o digoxin toxicity -check digoxin level UTI present on admission - Unsure if patient has symptoms as she has dementia. - Daughter states that she does have some urinary symptoms with kidney pain. - Afebrile with no leukocytosis. -start on macrodantin DVT ppx: Eliquis Code status: Full code VS, I&O, 24H, Fishbone Vital Signs/I&O Vital Signs Date Time Temp Pulse Resp B/P (MAP) Pulse Ox O2 Delivery O2 Flow Rate FiO2 11/17/18 10:00 97.0 75 18 99/58 (72) 99 11/17/18 07:45 Room Air Laboratory Data 24H LABS Laboratory Tests 2 11/16/18 18:15: Immature Granulocyte % (Auto) 0.3, White Blood Count 6.6, Red Blood Count 3.94L, Hemoglobin 12.3, Hematocrit 37.6, Mean Corpuscular Volume 95.4, Mean Corpuscular Hemoglobin 31.2, Mean Corpuscular Hemoglobin Concent 32.7, Red Cell Distribution Width 13.7, Platelet Count 209, Neutrophils (%) (Auto) 61.1, Lymphocytes (%) (Auto) 21.4L, Monocytes (%) (Auto) 12.7H, Eosinophils (%) (Auto) 3.6H, Basophils (%) (Auto) 0.9, Neutrophils # (Auto) 4.0, Lymphocytes # (Auto) 1.4L, Monocytes # (Auto) 0.8, Eosinophils # (Auto) 0.2, Basophils # (Auto) 0.1, Nucleated Red Blood Cells % (auto) 0.0, Anion Gap 5L, Glomerular Filtration Rate > 60.0, Calcium Level 9.0, Aspartate Amino Transf (AST/SGOT) 32, Alanine Aminotransferase (ALT/SGPT) 20, Alkaline Phosphatase 54, Total Bilirubin 1.2H, Direct Bilirubin 0.3H, Total Creatine Kinase 95, Creatine Kinase MB 1.8, Creatine Kinase MB Relative Index 1.89, Troponin I < 0.02, AC-Qbp-W-Type Natriuretic Peptide 2225H, Total Protein 7.0, Albumin 3.5, Albumin/Globulin Ratio 1.00, Thyroid Stimulating Hormone (TSH) 4.560H, Free Thyroxine 1.46 11/16/18 22:36: Bedside Urine Color (LAB) LT YELLOW, Bedside Urine Appearance (LAB) HAZYH, Bedside Urine pH (LAB) 6.0, Bedside Urine Specific Zanoni (LAB 1.010, Bedside Urine Protein (LAB) NEGATIVE, Bedside Urine Glucose (UA) NEGATIVE, Bedside Urine Ketones (LAB) NEGATIVE, Bedside Urine Blood TRACEH, Bedside Urine Nitrite (LAB) POSITIVEH, Bedside Urine Bilirubin (LAB) NEGATIVE, Bedside Urine Urobilinogen (LAB) NORMAL, Bedside Urine Leukocyte Esterase (L OBSCUREDH, Urine WBC 20-30H, Urine RBC 1-3, Urine Squamous Epithelial Cells SMALL AMOUNT, Urine Bacteria LARGE AMOUNTH, Urine Hyaline Casts NONE SEEN, Urine Sediment Examination PERFORMED 11/17/18 07:47: Nucleated Red Blood Cells % (auto) 0.0, Anion Gap 11, Glomerular Filtration Rate 52.9, Calcium Level 9.7, Aspartate Amino Transf (AST/SGOT) 7, Alanine Aminotransferase (ALT/SGPT) 22, Alkaline Phosphatase 72, Total Bilirubin 1.8H, Total Creatine Kinase 122, Creatine Kinase MB 2.0, Creatine Kinase MB Relative Index 1.64, Troponin I < 0.02, TW-Tep-V-Type Natriuretic Peptide 2087H, Total Protein 8.3H, Albumin 4.1, Albumin/Globulin Ratio 0.98L, Blood Urea Nitrogen 9, Creatinine 1.05, Sodium Level 142, Potassium Level 3.3L, Chloride Level 100, Carbon Dioxide Level 31 CBC/BMP Laboratory Tests 11/16/18 18:15 Red Blood Count 3.94 L, Mean Corpuscular Volume 95.4, Mean Corpuscular Hemoglobin 31.2, Mean Corpuscular Hemoglobin Concent 32.7, Red Cell Distribution Width 13.7, Neutrophils (%) (Auto) 61.1, Lymphocytes (%) (Auto) 21.4 L, Monocytes (%) (Auto) 12.7 H, Eosinophils (%) (Auto) 3.6 H, Basophils (%) (Auto) 0.9, Neutrophils # (Auto) 4.0, Lymphocytes # (Auto) 1.4 L, Monocytes # (Auto) 0.8, Eosinophils # (Auto) 0.2, Basophils # (Auto) 0.1 11/17/18 07:47 Red Blood Count 4.54, Mean Corpuscular Volume 96.0, Mean Corpuscular Hemoglobin 31.7, Mean Corpuscular Hemoglobin Concent 33.0, Red Cell Distribution Width 13.5, Calcium Level 9.7, Aspartate Amino Transf (AST/SGOT) 7, Alanine Aminotransferase (ALT/SGPT) 22, Total Creatine Kinase 122, Alkaline Phosphatase 72, Total Bilirubin 1.8 H, Total Protein 8.3 H, Albumin 4.1 Microbiology Microbiology 11/16/18 Urine Culture, Received Pending NICO MEDRANO MD Nov 17, 2018 12:42
[2018-11-17 14:00] VITALS: BP 100/55
[2018-11-17 14:25] LABS: DIGOXIN LEVEL 0.6 NG/ML (0.5-2.0)
[2018-11-17] MEDS: CIPROFLOXACIN 250 MG TAB PO SCH (17:12)
[2018-11-17 18:00] VITALS: BP 107/67
[2018-11-17 19:28] LABS: CALCIUM LEVEL 9.1 MG/DL (8.8-10.2); CREATININE FOR GFR 1.1 MG/DL (0.55-1.30); GLOMERULAR FILTRATION RATE 50.1 (>32); POTASSIUM SERUM 3.8 MEQ/L (3.5-5.1)
[2018-11-17] MEDS ORDERED: DONEPEZIL 5 MG TAB PO SCH (21:00)
[2018-11-17] MEDS ORDERED: MEMANTINE 5MG TABLET (NAMENDA) PO SCH (21:00)
[2018-11-17 22:00] VITALS: BP 128/66
--- NOTE | 2018-11-17 23:47 | ECHO ---
DATE OF PROCEDURE: 11/17/2018 REFERRING PHYSICIAN: Dr. Mingo Robles INDICATION: Heart failure, unspecified. HEIGHT: 160 cm WEIGHT: 54 kg 2D MEASUREMENTS: Ventricular septum: 0.70 cm Posterior wall: 0.90 cm Left ventricle diastole: 5.1 cm Left atrium: 5.1 cm Left atrial volume index: 46 Aortic root: 2.7 cm Inferior vena cava: 2.4 cm with marked reduction of respiratory variation. DOPPLER MEASUREMENTS: Aortic valve velocity: 98.2 cm/s LVOT velocity: 62.3 cm/s No aortic regurgitation. Mild mitral regurgitation. Moderate tricuspid regurgitation. Estimated right ventricle systolic pressure: At least 45 mmHg assuming a right pressure of at least 20 mmHg. Pulmonary artery systolic pressure: 44 mmHg. MITRAL ANNULAR TISSUE DOPPLER: E prime lateral: 8.7 cm/s E prime septal: 7.0 cm/s DESCRIPTION: Rhythm appeared to be atrial fibrillation with controlled ventricular response. Image quality was fair. This was a 2D, M-mode, color flow Doppler and pulse wave Doppler examination and included mitral annular tissue Doppler. CONCLUSIONS: 1. Normal left ventricle internal dimensions and wall thickness. Normal regional left ventricular (LV) wall motion and wall thickening. Normal LV systolic function. Left ventricular ejection fraction (LVEF) 65% by visual estimate. 2. Suggestive of moderate elevation of pulmonary artery systolic pressure and estimated right ventricle systolic pressure. Normal right ventricle size and systolic function. Structurally normal appearing tricuspid leaflets. Moderate tricuspid regurgitation. 3. Severe left atrial dilatation. 4. Severe right atrial dilatation. 5. Dilated inferior vena cava with marked reduction of respiratory variation. 6. Moderate aortic valve sclerosis of a 3-cusp aortic valve. No aortic stenosis or regurgitation. 7. Presence of endocardial right ventricle pacemaker lead. 8. No pericardial effusion. MTDD
[2018-11-18 06:00] VITALS: BP 122/68
[2018-11-18] MEDS: CIPROFLOXACIN 250 MG TAB PO SCH (06:07)
[2018-11-18] MEDS: LEVOTHYROXINE 75MCG TABLET (0.075MG) PO SCH (06:07)
[2018-11-18] MEDS ORDERED: CIPR-250 PO (08:26)
[2018-11-18] MEDS: DIGOXIN 0.125 MG TAB PO SCH (09:10)
[2018-11-18] MEDS: levETIRAcetam 250MG TABLET (KEPPRA) PO SCH (09:10)
[2018-11-18] MEDS: APIXABAN 2.5 MG TAB (ELIQUIS) PO SCH (09:10)
[2018-11-18 09:11] VITALS: BP 130/73
[2018-11-18] MEDS: ATENOLOL 50 MG TAB PO SCH (09:11)
[2018-11-18 10:00] VITALS: BP 108/66
--- NOTE | 2018-11-18 13:04 | DS.PDOC ---
Discharge Summary General Date of Admission Nov 17, 2018 at 06:30 Date of Discharge November 18, 2018 Discharge Summary DISCHARGE DIAGNOSES: CHF with preserved ejection fraction, acute decompensation UTI LOWER EXTREMITY EDEMA SEVERE TRICUSPID REGURGITATION ALZHEIMER'S DEMENTIA WITH DELUSIONS AND HALLUCINATIONS DISCHARGE MEDS: PLS SEE BELOW HISTORY OF PRESENTING ILLNESS: 88-year-old female with dementia, hypertension, hypothyroid, lung cancer status post resection, atrial fibrillation on Eliquis brought in by family because of poor by mouth intake for the past several weeks along with slightly increased foot swelling. Patient herself denies any symptoms and is not aware why she is in the hospital. She does live alone but right next to a family member's house and has been working on getting home care arranged for her so she doesn't have to get placement. She received a dose of Lasix in ER. By the time she was assessed no significant swelling were noted and no obvious evidence of fluid overload. Most history obtained from daughter. Acute decompensated CHF with preserved EF presented with LE Edema, CXR b/l effusions, and bnp >2000. Echo done, report reviewed, strict i/o, daily weights, fluid restriction, and salt restriction s/p lasix with improvement us LE: no dvt due to salt intake and dietary indiscretion UTI start on macrodantin await cx results alzheimer's Dementia with delusion and auditory hallucinations per family, they had tried different meds for , but nothing has worked family can provide care and prefers pt to be discharged home once stable Leg cramps supplemented potassium check magnesium and calcium Severe tricuspid regurgitation possible right sided heart failure outpt monitoring and mgt per her apparatus engineering technologist. Hypokalemia, supplemented due to lasix and poor oral intake Hypothyroidism - resumed home meds Poor PO intake - will need close monitoring and assistance. -it coordinator consulted -check digoxin to rule out toxicity Afib - C/w Eliquis. - rate controlled. -r/o digoxin toxicity normal digoxin level UTI present on admission - Unsure if patient has symptoms as she has dementia. - Daughter states that she does have some urinary symptoms with kidney pain. - Afebrile with no leukocytosis. -start on macrodantin DVT ppx: Eliquis Code status: Full code Echo 11/17/[address] Hayes: 1. Normal left ventricle internal dimensions and wall thickness. Normal regional left ventricular (LV) wall motion and wall thickening. Normal LV systolic function. Left ventricular ejection fraction (LVEF) 2. Suggestive of moderate elevation of pulmonary artery systolic pressure and estimated right ventricle systolic pressure. Normal right ventricle size and systolic function. Structurally normal appearing tricuspid leaflets. Moderate tricuspid regurgitation. 3. Severe left atrial dilatation. 4. Severe right atrial dilatation. 5. Dilated inferior vena cava with marked reduction of respiratory variation. 6. Moderate aortic valve sclerosis of a 3-cusp aortic valve. No aortic stenosis or regurgitation. 7. Presence of endocardial right ventricle pacemaker lead. 8. No pericardial effusion. DISCHARGE PHYSICAL EXAMINATION: vitals: pls see below weight, i/o: pls see below General: No acute distress, Alert Eyes: Normal sclera, EOMI, CANDACE HENT: Atraumatic, neck supple, moist mucous membranes Cardiovascular: Normal rate, normal rhythm. No murmurs appreciated. Pulmonary: Clear to auscultation b/l, no wheezing GI: Soft, nontender, nondistended Skin: Warm and dry Neuro: CN grossly intact. No focal deficits. Psych: oriented x 3 LABORATORY DATA, IMAGING STUDIES, MICROBIOLOGY: See below. IMAGING: CXR- Impression: Moderate cardiomegaly with pacemaker. Blunting of the right lateral and both posterior pleural angles appears chronic. Possible small bilateral effusions. No significant change from September 16, 2016. Vascular US LE- No evidence of DVT DISCHARGE LABORATORY DATA, IMAGING STUDIES, AND MICROBIOLOGY: Please see below. TIME SPENT ON HOSPITAL DISCHARGE: PLS SEE BELOW Vital Signs/I&Os Vital Signs Date Time Temp Pulse Resp B/P (MAP) Pulse Ox O2 Delivery O2 Flow Rate FiO2 11/18/18 10:00 97.4 99 16 108/66 (80) 97 11/17/18 07:45 Room Air I&O- Last 24 Hours up to 6 AM 11/18/18 06:00 Intake Total 1200 ml Output Total 600 ml Balance 600 ml Laboratory Data Labs 24H Laboratory Tests 2 11/17/18 18:55: Anion Gap 7L, Glomerular Filtration Rate 50.1, Blood Urea Nitrogen 15#, Creatinine 1.10, Sodium Level 139, Potassium Level 3.8, Chloride Level 98, Carbon Dioxide Level 34H, Calcium Level 9.1 CBC/BMP Laboratory Tests 11/17/18 18:55 Calcium Level 9.1 Microbiology Microbiology 11/16/18 Urine Culture, Received Pending Discharge Medications Scheduled Apixaban (Eliquis) 2.5 Mg Tab, 2.5 MG PO BID, (Reported) Atenolol (Atenolol) 50 Mg Tab, 50 MG PO BID, (Reported) Cholecalciferol (Vitamin D3) (Vitamin D3) 50,000 Unit Capsule, 50,000 UNIT PO MTHLY, (Reported) FIRST FRIDAY OF EACH MONTH Ciprofloxacin HCl (Cipro) 250 Mg Tablet, 250 MG PO BID@ Digoxin (Digoxin) 125 Mcg Tab, 125 MCG PO DAILY, (Reported) Donepezil HCl (Donepezil HCl) 10 Mg Tablet, 10 MG PO QHS, (Reported) Levetiracetam (Keppra) 500 Mg Tablet, 500 MG PO BID, (Reported) Levocetirizine Dihydrochloride (Levocetirizine Dihydrochloride) 5 Mg Tablet, 5 MG PO QHS, (Reported) Levothyroxine Sodium (Levothyroxine Sodium) 75 Mcg Tablet, 75 MCG PO DAILY, (Reported) Melatonin (Melatonin) 5 Mg Tablet, 5 MG PO QHS, (Reported) Memantine HCl (Memantine HCl) 5 Mg Tablet, 5 MG PO QHS, (Reported) Allergies Coded Allergies: Penicillins (Verified Allergy, Unknown, 11/16/18) Sulfa (Sulfonamide Antibiotics) (Verified Allergy, Unknown, 11/16/18) latex (Verified Allergy, Unknown, 11/16/18) NICO MEDRANO MD Nov 18, 2018 13:01
== END 2018-11-18 12:44 | disposition home or self-care (01) ==
LOC: M ED 15:38 → M ED INP 15:42 → UNDOADMOB 11-17 06:30 → M ED INP 11-17 06:30 → INTOOBSV 11-17 06:30 → M ED INP 11-17 07:51 → M MSPAV 11-17 07:51 → UNDODISOB 11-18 12:44
PROVIDERS: ADMIT Student in an Organized Health Care Education/Training Program; ATTEND Student in an Organized Health Care Education/Training Program
DX: I50.9 Heart failure, unspecified (principal); N39.0 Urinary tract infection, site not specified; R60.0 Localized edema; I36.1 Nonrheumatic tricuspid (valve) insufficiency; G30.8 Other Alzheimer's disease; F03.91 Unspecified dementia, unspecified severity, with behavioral disturbance; E03.9 Hypothyroidism, unspecified; E87.6 Hypokalemia; I51.7 Cardiomegaly; I48.91 Unspecified atrial fibrillation; Z79.01 Long term (current) use of anticoagulants; Z79.899 Other long term (current) drug therapy; Z88.0 Allergy status to penicillin; Z88.2 Allergy status to sulfonamides; Z91.040 Latex allergy status; Z95.0 Presence of cardiac pacemaker; Z85.118 Personal history of other malignant neoplasm of bronchus and lung
CPT/HCPCS: 36415; 71046; 80048; 80053; 80076; 80162; 81000; 82550; 82553; 83880; 84439; 84443; 84484; 85025; 85027; 87088; 87186; 93005; 93041; 93306; 93971; 94760; 96374; 97161; 99285; G0378; J1940

== ENCOUNTER → 2018-12-03 | Outpatient (CLI) | payer MEDICARE, MEDICAID ==
[~2018-12-03] MED LIST changes: +CIPR-250 PO; +DONE10TA90 PO; +KEPP1TAB PO; +LEVO75TA4 PO; +LEVOTAB10 PO; +MELA1TAB9 PO; +MELATAB3 PO; +MEMA1TAB PO; +QUET1TAB7 PO; +VITA1CAP25 PO; +VITAD1000T PO
--- NOTE | 2018-12-03 19:55 | REP ---
Clinical: Left foot pain. Technique: AP, lateral, bilateral oblique views of the left foot. Findings: Age-related degenerative changes are appreciated primarily involving the midfoot as well as the first and second toes. No obvious acute fracture or dislocation identified. No subcutaneous emphysema or radiodense foreign body. 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 Electronically Signed by Lucas Moses MD 12/03/2018 07:46 P
== END ==
LOC: M WUC 18:44
PROVIDERS: ATTEND Physician Assistant
DX: M19.072 Primary osteoarthritis, left ankle and foot (principal)

== ENCOUNTER → 2018-12-04 | Outpatient (CLI) | payer MEDICARE, MEDICAID ==
[2018-12-04 15:51] LABS: BASO % 0.5 % (0.0-1.0); EOS # 0.1 10^3/uL (0.0-0.50); EOS % 1.2 % (0.0-3.0); HEMATOCRIT 37.9 % (36.0-47.0); HEMOGLOBIN 12.4 g/dl (12.0-15.5); LYMPH # 1.2 10^3/uL (1.5-4.5); LYMPH % 14.3 % (24.0-44.0); MEAN CORPUSCULAR HEMOGLOBIN 31.6 pg (27.0-33.0); MEAN CORPUSCULAR HGB CONC 32.7 g/dl (32.0-36.5); MEAN CORPUSCULAR VOLUME 96.7 fl (80.0-96.0); MONO # 0.9 10^3/uL (0.0-0.8); MONO % 11.1 % (0.0-5.0); NEUTROPHILS # 6.2 10^3/uL (1.8-7.7); NEUTROPHILS % 72.5 % (36.0-66.0); PLATELET COUNT, AUTOMATED 230 10^3/uL (150-450); RED BLOOD COUNT 3.92 10^6/uL (4.00-5.40); WHITE BLOOD COUNT 8.5 10^3/uL (4.0-10.0)
[2018-12-04 15:59] LABS: ALBUMIN 3.3 GM/DL (3.2-5.2); ALT/SGPT 15 U/L (12-78); BILIRUBIN,TOTAL 1.5 MG/DL (0.2-1.0); BLOOD UREA NITROGEN 12 MG/DL (7-18); C REACTIVE PROTEIN QUANTITATIV 3.17 MG/DL (0.00-0.30); CALCIUM LEVEL 8.7 MG/DL (8.8-10.2); CARBON DIOXIDE LEVEL 31 MEQ/L (21-32); CHLORIDE LEVEL 104 MEQ/L (98-107); CREATININE FOR GFR 0.76 MG/DL (0.55-1.30); GLOMERULAR FILTRATION RATE > 60.0 (>32); GLUCOSE, FASTING 88 MG/DL (70-100); POTASSIUM SERUM 3.4 MEQ/L (3.5-5.1); SODIUM LEVEL 141 MEQ/L (136-145); TOTAL PROTEIN 6.8 GM/DL (6.4-8.2); URIC ACID 6.4 MG/DL (2.6-6.0)
[2018-12-04 16:16] LABS: ERYTHROCYTE SEDIMENTATION RATE 39 mm/hr (0-42)
== END ==
LOC: M WUC 10:07
PROVIDERS: ATTEND Physician Assistant
DX: M79.672 Pain in left foot (principal)

== ENCOUNTER → 2018-12-18 | Outpatient (REF) | payer MEDICARE, MEDICAID ==
[2018-12-18 11:43] LABS: HEMATOCRIT 38.5 % (36.0-47.0); HEMOGLOBIN 12.6 g/dl (12.0-15.5); MEAN CORPUSCULAR HEMOGLOBIN 31.7 pg (27.0-33.0); MEAN CORPUSCULAR HGB CONC 32.7 g/dl (32.0-36.5); PLATELET COUNT, AUTOMATED 241 10^3/uL (150-450); RED BLOOD COUNT 3.97 10^6/uL (4.00-5.40); WHITE BLOOD COUNT 7.2 10^3/uL (4.0-10.0)
[2018-12-18 12:15] LABS: ALBUMIN 3.2 GM/DL (3.2-5.2); ALT/SGPT 15 U/L (12-78); BILIRUBIN,TOTAL 0.8 MG/DL (0.2-1.0); BLOOD UREA NITROGEN 9 MG/DL (7-18); CALCIUM LEVEL 8.8 MG/DL (8.8-10.2); CARBON DIOXIDE LEVEL 31 MEQ/L (21-32); CHLORIDE LEVEL 103 MEQ/L (98-107); CHOLESTEROL LEVEL 147 MG/DL (<200); CHOLESTEROL RISK RATIO 2.578 (<5); CPK CREATINE PHOSPHOKINASE 26 U/L (26-192); CREATININE FOR GFR 0.84 MG/DL (0.55-1.30); GLOMERULAR FILTRATION RATE > 60.0 (>32); GLUCOSE, FASTING 86 MG/DL (70-100); HDL CHOLESTEROL 57 MG/DL (>40); LDL CHOLESTEROL 71 MG/DL (<100); NON-HDL-C 90 MG/DL; POTASSIUM SERUM 4.6 MEQ/L (3.5-5.1); SODIUM LEVEL 140 MEQ/L (136-145); TOTAL PROTEIN 6.4 GM/DL (6.4-8.2); TRIGLYCERIDES LEVEL 97 MG/DL (<150)
[2018-12-18 12:23] LABS: TOTAL 25(OH) VITAMIN D 86.6 NG/ML (30.0-100.0)
== END ==
LOC: M LABDRAW1 10:11
PROVIDERS: ATTEND Nurse Practitioner Family
DX: I10 Essential (primary) hypertension (principal); E78.5 Hyperlipidemia, unspecified; E55.9 Vitamin D deficiency, unspecified

== ENCOUNTER → 2019-01-14 | Outpatient (REF) | payer MEDICARE, MEDICAID ==
[2019-01-14 18:04] LABS: ALBUMIN 3.5 GM/DL (3.2-5.2); ALT/SGPT 18 U/L (12-78); BILIRUBIN,TOTAL 1.1 MG/DL (0.2-1.0); BLOOD UREA NITROGEN 14 MG/DL (7-18); CARBON DIOXIDE LEVEL 30 MEQ/L (21-32); CHLORIDE LEVEL 103 MEQ/L (98-107); CREATININE FOR GFR 0.86 MG/DL (0.55-1.30); GLOMERULAR FILTRATION RATE > 60.0 (>32); GLUCOSE, FASTING 79 MG/DL (70-100); POTASSIUM SERUM 4.2 MEQ/L (3.5-5.1); SODIUM LEVEL 139 MEQ/L (136-145); TOTAL PROTEIN 6.3 GM/DL (6.4-8.2); VALPROIC ACID (DEPAKOTE) 50.3 UG/ML (50.0-100.0)
[2019-01-14 18:06] LABS: BASO % 0.5 % (0.0-1.0); EOS # 0.1 10^3/uL (0.0-0.50); EOS % 1.8 % (0.0-3.0); HEMATOCRIT 37.8 % (36.0-47.0); HEMOGLOBIN 12.5 g/dl (12.0-15.5); LYMPH # 1.1 10^3/uL (1.5-4.5); LYMPH % 17.3 % (24.0-44.0); MEAN CORPUSCULAR HEMOGLOBIN 31.8 pg (27.0-33.0); MEAN CORPUSCULAR HGB CONC 33.1 g/dl (32.0-36.5); MEAN CORPUSCULAR VOLUME 96.2 fl (80.0-96.0); MONO # 0.8 10^3/uL (0.0-0.8); MONO % 12.4 % (0.0-5.0); NEUTROPHILS # 4.5 10^3/uL (1.8-7.7); NEUTROPHILS % 67.5 % (36.0-66.0); PLATELET COUNT, AUTOMATED 181 10^3/uL (150-450); RED BLOOD COUNT 3.93 10^6/uL (4.00-5.40); WHITE BLOOD COUNT 6.6 10^3/uL (4.0-10.0)
== END ==
LOC: M LAB REF 15:36 → M LABDRAW1 15:36
PROVIDERS: ATTEND Psychiatry & Neurology Neurology
DX: G40.89 Other seizures (principal)

== ENCOUNTER → 2019-02-17 | Outpatient (CLI) | payer MEDICARE, MEDICAID ==
[~2019-02-17] MED LIST changes: +CHOL100029 PO; -VITAD1000T PO
--- NOTE | 2019-02-17 19:21 | REP ---
REASON: Wheezing and altered mental status. COMPARISON: Multiple, the latest 11/17/2018. Chronic right lung base changes status quo. Cardiomegaly is status quo. Single chamber bipolar pace maker device status quo. No new abnormal lung opacities have developed. There is a persistent band like opacity in the posterior lung cardoza seen only on the lateral view and completely unchanged. IMPRESSION: Stable appearing chronic changes. Electronically Signed by Olayinka العراقي DO 02/17/2019 07:29 P
== END ==
LOC: M WUC 17:16
PROVIDERS: ATTEND Nurse Practitioner Family
DX: R06.2 Wheezing (principal); R41.82 Altered mental status, unspecified; I51.7 Cardiomegaly; Z95.0 Presence of cardiac pacemaker

== ENCOUNTER → 2019-02-24 | Outpatient (CLI) | payer MEDICARE, MEDICAID ==
[2019-02-24 17:32] LABS: BLOOD UREA NITROGEN 6 MG/DL (7-18); CALCIUM LEVEL 8.5 MG/DL (8.8-10.2); CARBON DIOXIDE LEVEL 26 MEQ/L (21-32); CHLORIDE LEVEL 104 MEQ/L (98-107); GLOMERULAR FILTRATION RATE > 60.0 (>32); GLUCOSE, FASTING 84 MG/DL (70-100); POTASSIUM SERUM 4.6 MEQ/L (3.5-5.1); SODIUM LEVEL 138 MEQ/L (136-145); URIC ACID 7.6 MG/DL (2.6-6.0)
== END ==
LOC: M WUC 16:06
PROVIDERS: ATTEND Internal Medicine Cardiovascular Disease
DX: M10.9 Gout, unspecified (principal)

== ENCOUNTER → 2019-02-24 | Outpatient (REF) | payer MEDICARE, MEDICAID | LOC: M LAB REF 19:26 | PROVIDERS: ATTEND Nurse Practitioner Family | DX: R19.7 Diarrhea, unspecified (principal); M10.9 Gout, unspecified ==

== ENCOUNTER → 2019-03-05 | Outpatient (REF) | payer MEDICARE, MEDICAID ==
[2019-03-05 15:45] LABS: BLOOD UREA NITROGEN 11 MG/DL (7-18); CARBON DIOXIDE LEVEL 30 MEQ/L (21-32); CHLORIDE LEVEL 104 MEQ/L (98-107); CREATININE FOR GFR 0.77 MG/DL (0.55-1.30); GLOMERULAR FILTRATION RATE > 60.0 (>32); GLUCOSE, FASTING 80 MG/DL (70-100); SODIUM LEVEL 141 MEQ/L (136-145)
== END ==
LOC: M LABDRAW1 12:59
PROVIDERS: ATTEND Nurse Practitioner Family
DX: I10 Essential (primary) hypertension (principal)

== ENCOUNTER → 2019-03-24 | Outpatient (CLI) | payer MEDICARE, MEDICAID | LOC: M WUC 14:04 | PROVIDERS: ATTEND Nurse Practitioner Family | DX: R22.41 Localized swelling, mass and lump, right lower limb (principal) ==

== ENCOUNTER → 2019-04-09 | Outpatient (REF) | payer MEDICARE, MEDICAID ==
[2019-04-09 11:57] LABS: HEMATOCRIT 35.8 % (36.0-47.0); HEMOGLOBIN 11.9 g/dl (12.0-15.5); MEAN CORPUSCULAR HGB CONC 33.2 g/dl (32.0-36.5); MEAN CORPUSCULAR VOLUME 99.2 fl (80.0-96.0); PLATELET COUNT, AUTOMATED 224 10^3/uL (150-450); RED BLOOD COUNT 3.61 10^6/uL (4.00-5.40); WHITE BLOOD COUNT 8.2 10^3/uL (4.0-10.0)
[2019-04-09 12:40] LABS: ALT/SGPT 18 U/L (12-78); BILIRUBIN,TOTAL 0.6 MG/DL (0.2-1.0); BLOOD UREA NITROGEN 8 MG/DL (7-18); CALCIUM LEVEL 8.7 MG/DL (8.8-10.2); CARBON DIOXIDE LEVEL 31 MEQ/L (21-32); CHLORIDE LEVEL 102 MEQ/L (98-107); CHOLESTEROL LEVEL 159 MG/DL (<200); CHOLESTEROL RISK RATIO 2.338 (<5); CPK CREATINE PHOSPHOKINASE 27 U/L (26-192); CREATININE FOR GFR 0.79 MG/DL (0.55-1.30); FREE T4 1.25 NG/DL (0.76-1.46); GLOMERULAR FILTRATION RATE > 60.0 (>32); GLUCOSE, FASTING 80 MG/DL (70-100); HDL CHOLESTEROL 68 MG/DL (>40); LDL CHOLESTEROL 68 MG/DL (<100); NON-HDL-C 91 MG/DL; POTASSIUM SERUM 3.8 MEQ/L (3.5-5.1); SODIUM LEVEL 139 MEQ/L (136-145); TOTAL PROTEIN 6.3 GM/DL (6.4-8.2); TRIGLYCERIDES LEVEL 117 MG/DL (<150)
== END ==
LOC: M LABDRAW1 09:24
PROVIDERS: ATTEND Nurse Practitioner Family
DX: I10 Essential (primary) hypertension (principal); E78.5 Hyperlipidemia, unspecified; E03.9 Hypothyroidism, unspecified

== ENCOUNTER → 2019-08-04 | Outpatient (CLI) | payer MEDICARE, MEDICAID ==
[~2019-08-04] MED LIST changes: +DIGO0.123 PO; -MEMA1TAB PO; +MEMA1TAB3 PO
--- NOTE | 2019-08-04 19:27 | REP ---
RIGHT KNEE SERIES, FIVE VIEWS: Five views of the right knee are performed. I see no evidence of fracture or dislocation. There is moderately severe diffuse joint space narrowing with subchondral sclerosis and spurring. There appears to be a mild joint effusion. Diffuse vascular calcifications are present. IMPRESSION: Moderate diffuse degenerative changes without evidence of acute fracture or dislocation. Electronically Signed by Ken Guillen MD 08/05/2019 10:28 A
== END ==
LOC: M WUC 16:20
PROVIDERS: ATTEND Physician Assistant
DX: S80.01XA Contusion of right knee, initial encounter (principal)

== ENCOUNTER → 2019-08-20 | Outpatient (CLI) | payer MEDICARE, MEDICAID ==
[~2019-08-20] MED LIST changes: +DEPA1CAP PO; +NAME5TAB13 PO; +VITA500079 PO
[2019-08-20 16:47] LABS: BASO % 0.7 % (0.0-1.0); EOS # 0.2 10^3/uL (0.0-0.5); EOS % 2.8 % (0.0-3.0); HEMATOCRIT 39.1 % (36.0-47.0); HEMOGLOBIN 12.7 g/dl (12.0-15.5); LYMPH # 1.6 10^3/uL (1.5-5.0); LYMPH % 26.7 % (24.0-44.0); MEAN CORPUSCULAR HEMOGLOBIN 31.8 pg (27.0-33.0); MEAN CORPUSCULAR HGB CONC 32.5 g/dl (32.0-36.5); MONO # 0.8 10^3/uL (0.0-0.8); MONO % 13.2 % (0.0-5.0); NEUTROPHILS # 3.5 10^3/uL (1.5-8.5); NEUTROPHILS % 56.1 % (36.0-66.0); PLATELET COUNT, AUTOMATED 183 10^3/uL (150-450); RED BLOOD COUNT 3.99 10^6/uL (4.00-5.40); WHITE BLOOD COUNT 6.1 10^3/uL (4.0-10.0)
[2019-08-20 17:09] LABS: ALBUMIN 3.2 GM/DL (3.2-5.2); ALT/SGPT 16 U/L (12-78); BILIRUBIN,TOTAL 1.4 MG/DL (0.2-1.0); BLOOD UREA NITROGEN 17 MG/DL (7-18); CALCIUM LEVEL 8.9 MG/DL (8.8-10.2); CARBON DIOXIDE LEVEL 33 MEQ/L (21-32); CHLORIDE LEVEL 97 MEQ/L (98-107); CREATININE FOR GFR 0.85 MG/DL (0.55-1.30); GLOMERULAR FILTRATION RATE > 60.0 (>32); GLUCOSE, FASTING 85 MG/DL (70-100); POTASSIUM SERUM 4.1 MEQ/L (3.5-5.1); SODIUM LEVEL 134 MEQ/L (136-145); TOTAL PROTEIN 6.4 GM/DL (6.4-8.2); VALPROIC ACID (DEPAKOTE) 52.8 UG/ML (50.0-100.0)
== END ==
LOC: M WUC 11:06
PROVIDERS: ATTEND Psychiatry & Neurology Neurology
DX: R56.9 Unspecified convulsions (principal)

== ENCOUNTER → 2019-09-06 | Outpatient (CLI) | payer MEDICARE, MEDICAID ==
[2019-09-06 13:33] LABS: HEMATOCRIT 36.7 % (36.0-47.0); HEMOGLOBIN 12.4 g/dl (12.0-15.5); MEAN CORPUSCULAR HEMOGLOBIN 33.2 pg (27.0-33.0); MEAN CORPUSCULAR HGB CONC 33.8 g/dl (32.0-36.5); MEAN CORPUSCULAR VOLUME 98.4 fl (80.0-96.0); PLATELET COUNT, AUTOMATED 186 10^3/uL (150-450); RED BLOOD COUNT 3.73 10^6/uL (4.00-5.40); WHITE BLOOD COUNT 5.8 10^3/uL (4.0-10.0)
[2019-09-06 14:05] LABS: ALBUMIN 3.1 GM/DL (3.2-5.2); ALT/SGPT 16 U/L (12-78); BILIRUBIN,TOTAL 0.7 MG/DL (0.2-1.0); BLOOD UREA NITROGEN 10 MG/DL (7-18); CARBON DIOXIDE LEVEL 34 MEQ/L (21-32); CHLORIDE LEVEL 97 MEQ/L (98-107); CHOLESTEROL LEVEL 160 MG/DL (<200); CPK CREATINE PHOSPHOKINASE 34 U/L (26-192); CREATININE FOR GFR 0.74 MG/DL (0.55-1.30); FREE T4 1.34 NG/DL (0.76-1.46); GLOMERULAR FILTRATION RATE > 60.0 (>32); GLUCOSE, FASTING 73 MG/DL (70-100); HDL CHOLESTEROL 62 MG/DL (>40); LDL CHOLESTEROL 75 MG/DL (<100); NON-HDL-C 98 MG/DL; POTASSIUM SERUM 4.3 MEQ/L (3.5-5.1); SODIUM LEVEL 134 MEQ/L (136-145); TOTAL PROTEIN 6.4 GM/DL (6.4-8.2); TRIGLYCERIDES LEVEL 113 MG/DL (<150)
== END ==
LOC: M WUC 09:44
PROVIDERS: ATTEND Nurse Practitioner Family
DX: I10 Essential (primary) hypertension (principal); E78.5 Hyperlipidemia, unspecified; E03.9 Hypothyroidism, unspecified

== ENCOUNTER → 2019-12-27 | Outpatient (CLI) | payer MEDICARE, MEDICAID ==
[~2019-12-27] MED LIST changes: +MULTCAP PO; +POTA10CA32 PO
[2019-12-27 13:41] LABS: FREE T4 1.95 NG/DL (0.76-1.46); THYROID STIMULATING HORMONE 0.108 uIU/ML (0.358-3.740)
== END ==
LOC: M WUC 10:16
PROVIDERS: ATTEND Nurse Practitioner Family
DX: E03.9 Hypothyroidism, unspecified (principal)

== ENCOUNTER → 2020-03-06 | Outpatient (CLI) | payer MEDICARE, MEDICAID ==
[2020-03-06 12:57] LABS: HEMATOCRIT 35.8 % (36.0-47.0); HEMOGLOBIN 11.7 g/dl (12.0-15.5); MEAN CORPUSCULAR HEMOGLOBIN 32.9 pg (27.0-33.0); MEAN CORPUSCULAR HGB CONC 32.7 g/dl (32.0-36.5); MEAN CORPUSCULAR VOLUME 100.6 fl (80.0-96.0); PLATELET COUNT, AUTOMATED 189 10^3/uL (150-450); RED BLOOD COUNT 3.56 10^6/uL (4.00-5.40); WHITE BLOOD COUNT 6.9 10^3/uL (4.0-10.0)
[2020-03-06 13:13] LABS: ALBUMIN 2.7 GM/DL (3.2-5.2); CALCIUM LEVEL 8.9 MG/DL (8.8-10.2); CHOLESTEROL RISK RATIO 1.917 (<5); CREATININE FOR GFR 1.04 MG/DL (0.55-1.30); FREE T4 1.6 NG/DL (0.76-1.46); GLOMERULAR FILTRATION RATE 53.4 (>32); POTASSIUM SERUM 4.1 MEQ/L (3.5-5.1); THYROID STIMULATING HORMONE 0.245 uIU/ML (0.358-3.740); TOTAL PROTEIN 5.9 GM/DL (6.4-8.2)
== END ==
LOC: M WUC 09:02
PROVIDERS: ATTEND Nurse Practitioner Family
DX: E78.5 Hyperlipidemia, unspecified (principal); E03.9 Hypothyroidism, unspecified; I10 Essential (primary) hypertension

== ENCOUNTER 2020-03-09 08:21 | Day surgery (SDC) | payer MEDICARE, MEDICAID ==
[~2020-03-09] VITALS: Ht 160 cm; Wt 42.2 kg
[~2020-03-09 08:21] MED LIST changes: +BSS IRR 500ML/OMIDRIA 4ML IRR BAG (OR ONLY) (J1097 PER ML) As Ordered ONE; +DUOVISC (0.50ML VISCOAT/0.55ML PROVISC) OPHTH KIT As Ordered ONE; +OFLOXACIN 0.3 % (OCUFLOX) OPTH SOL 5ML OS ONE; +PHENYLEPHRINE 2.5% OPHTH SOL 2ML OS ONE; +POVIDONE-IODINE 5% OPHTH PREP SOL 30ML As Ordered ONE; +PROPARACAINE 0.5% OPHTH SOL 15ML OS ONE; +TROPICAMIDE 1% OPHTH SOLN 2ML OS ONE
[2020-03-09] MEDS ORDERED: MIDAZOLAM INJ 2MG/2ML VIAL (J2250 PER 1MG) As Ordered ONE (11:51)
[2020-03-09] MEDS ORDERED: fentaNYL 100 MCG/2 ML INJECTION (J3010) As Ordered ONE (11:51)
[2020-03-09 12:10] VITALS: BP 100/55
== END 2020-03-09 12:15 | disposition home or self-care (01) ==
LOC: M SDC 08:21
PROVIDERS: ATTEND Ophthalmology
DX: H25.12 Age-related nuclear cataract, left eye (principal); I48.91 Unspecified atrial fibrillation; I10 Essential (primary) hypertension; Z95.0 Presence of cardiac pacemaker; K57.92 Diverticulitis of intestine, part unspecified, without perforation or abscess without bleeding; E03.9 Hypothyroidism, unspecified; Z91.040 Latex allergy status; Z88.0 Allergy status to penicillin; Z88.5 Allergy status to narcotic agent; Z85.3 Personal history of malignant neoplasm of breast; Z85.118 Personal history of other malignant neoplasm of bronchus and lung; Z92.3 Personal history of irradiation
CPT/HCPCS: 66984; J1097; J2250; J3010; U0002; V2632

== ENCOUNTER → 2020-03-20 | Outpatient (CLI) | payer MEDICARE, MEDICAID ==
[~2020-03-20] MED LIST changes: -BSS IRR 500ML/OMIDRIA 4ML IRR BAG (OR ONLY) (J1097 PER ML) As Ordered ONE; -DUOVISC (0.50ML VISCOAT/0.55ML PROVISC) OPHTH KIT As Ordered ONE; -OFLOXACIN 0.3 % (OCUFLOX) OPTH SOL 5ML OS ONE; -PHENYLEPHRINE 2.5% OPHTH SOL 2ML OS ONE; -POVIDONE-IODINE 5% OPHTH PREP SOL 30ML As Ordered ONE; -PROPARACAINE 0.5% OPHTH SOL 15ML OS ONE; -TROPICAMIDE 1% OPHTH SOLN 2ML OS ONE
== END ==
LOC: M LABSMTC 09:43
PROVIDERS: ATTEND Anesthesiology
DX: Z01.812 Encounter for preprocedural laboratory examination (principal); Z20.828 Contact with and (suspected) exposure to other viral communicable diseases
CPT/HCPCS: C9803; U0002

== ENCOUNTER 2020-03-23 07:50 | Day surgery (SDC) | payer MEDICARE, MEDICAID ==
[~2020-03-23] VITALS: Ht 154.9 cm; Wt 43.1 kg
[~2020-03-23 07:50] MED LIST changes: +DUOVISC (0.50ML VISCOAT/0.55ML PROVISC) OPHTH KIT As Ordered ONE; +MIDAZOLAM INJ 2MG/2ML VIAL (J2250 PER 1MG) As Ordered ONE; +OFLOXACIN 0.3 % (OCUFLOX) OPTH SOL 5ML OD ONE; +PHENYLEPHRINE 2.5% OPHTH SOL 2ML OD ONE; +POVIDONE-IODINE 5% OPHTH PREP SOL 30ML As Ordered ONE; +PROPARACAINE 0.5% OPHTH SOL 15ML OD ONE; +TROPICAMIDE 1% OPHTH SOLN 2ML OD ONE; +fentaNYL 100 MCG/2 ML INJECTION (J3010) As Ordered ONE
[2020-03-23] MEDS ORDERED: BSS IRR 500ML/OMIDRIA 4ML IRR BAG (OR ONLY) (J1097 PER ML) As Ordered ONE (09:53)
[2020-03-23 10:52] VITALS: BP 116/55
== END 2020-03-23 10:52 | disposition home or self-care (01) ==
LOC: M SDC 07:50
PROVIDERS: ATTEND Ophthalmology
DX: H25.11 Age-related nuclear cataract, right eye (principal); I48.91 Unspecified atrial fibrillation; Z95.0 Presence of cardiac pacemaker; F03.90 Unspecified dementia, unspecified severity, without behavioral disturbance, psychotic disturbance, mood disturbance, and anxiety; I10 Essential (primary) hypertension; E03.9 Hypothyroidism, unspecified; K57.92 Diverticulitis of intestine, part unspecified, without perforation or abscess without bleeding; Z79.01 Long term (current) use of anticoagulants; Z79.899 Other long term (current) drug therapy; Z88.0 Allergy status to penicillin; Z88.2 Allergy status to sulfonamides; Z91.040 Latex allergy status
CPT/HCPCS: 66984; J1097; J2250; J3010; V2632

== ENCOUNTER → 2020-06-27 | Outpatient (REF) | payer MEDICARE, MEDICAID ==
[~2020-06-27] MED LIST changes: -DUOVISC (0.50ML VISCOAT/0.55ML PROVISC) OPHTH KIT As Ordered ONE; -MIDAZOLAM INJ 2MG/2ML VIAL (J2250 PER 1MG) As Ordered ONE; -OFLOXACIN 0.3 % (OCUFLOX) OPTH SOL 5ML OD ONE; -PHENYLEPHRINE 2.5% OPHTH SOL 2ML OD ONE; -POVIDONE-IODINE 5% OPHTH PREP SOL 30ML As Ordered ONE; -PROPARACAINE 0.5% OPHTH SOL 15ML OD ONE; -QUET1TAB7 PO; +QUET25TA3 PO; -TROPICAMIDE 1% OPHTH SOLN 2ML OD ONE; -fentaNYL 100 MCG/2 ML INJECTION (J3010) As Ordered ONE
== END ==
LOC: M LAB REF 11:27
PROVIDERS: ATTEND Physician Assistant
DX: R53.83 Other fatigue (principal)

== ENCOUNTER → 2020-08-14 | Outpatient (CLI) | payer MEDICARE, MEDICAID ==
[2020-08-14 12:26] LABS: HEMATOCRIT 39.7 % (36.0-47.0); HEMOGLOBIN 12.5 g/dl (12.0-15.5); MEAN CORPUSCULAR HEMOGLOBIN 31.6 pg (27.0-33.0); MEAN CORPUSCULAR HGB CONC 31.5 g/dl (32.0-36.5); MEAN CORPUSCULAR VOLUME 100.3 fl (80.0-96.0); PLATELET COUNT, AUTOMATED 194 10^3/uL (150-450); RED BLOOD COUNT 3.96 10^6/uL (4.00-5.40); WHITE BLOOD COUNT 6.3 10^3/uL (4.0-10.0)
[2020-08-14 13:05] LABS: ALBUMIN 3.2 GM/DL (3.2-5.2); ALT/SGPT 16 U/L (12-78); BILIRUBIN,TOTAL 0.8 MG/DL (0.2-1.0); BLOOD UREA NITROGEN 20 MG/DL (7-18); CALCIUM LEVEL 8.8 MG/DL (8.8-10.2); CARBON DIOXIDE LEVEL 36 MEQ/L (21-32); CHLORIDE LEVEL 100 MEQ/L (98-107); CHOLESTEROL LEVEL 178 MG/DL (<200); CHOLESTEROL RISK RATIO 2.781 (<5); CPK CREATINE PHOSPHOKINASE 25 U/L (26-192); CREATININE FOR GFR 0.92 MG/DL (0.55-1.30); FREE T4 1.56 NG/DL (0.76-1.46); GLOMERULAR FILTRATION RATE > 60.0 (>32); GLUCOSE, FASTING 85 MG/DL (70-100); HDL CHOLESTEROL 64 MG/DL (>40); LDL CHOLESTEROL 92 MG/DL (<100); NON-HDL-C 114 MG/DL; POTASSIUM SERUM 3.9 MEQ/L (3.5-5.1); SODIUM LEVEL 138 MEQ/L (136-145); THYROID STIMULATING HORMONE 0.143 uIU/ML (0.358-3.740); TOTAL PROTEIN 5.9 GM/DL (6.4-8.2); TRIGLYCERIDES LEVEL 108 MG/DL (<150)
[2020-08-14 13:06] LABS: TOTAL 25(OH) VITAMIN D 127.7 NG/ML (30.0-100.0)
== END ==
LOC: M WUC 08:53
PROVIDERS: ATTEND Nurse Practitioner Family
DX: E55.9 Vitamin D deficiency, unspecified (principal); E78.5 Hyperlipidemia, unspecified; I10 Essential (primary) hypertension

== ENCOUNTER 2020-10-05 17:50 | Inpatient (IN) | payer MEDICARE, MEDICAID ==
[~2020-10-05] VITALS: Ht 154.9 cm; Wt 48.1 kg
--- NOTE | 2020-10-05 18:35 | REPVR ---
PROCEDURE INFORMATION: Exam: CT Head Without Contrast Exam date and time: 10/05/2020 6:02 PM Age: 89 years old Clinical indication: Altered mental status/memory loss TECHNIQUE: Imaging protocol: Computed tomography of the head without contrast. Radiation optimization: All CT scans at this facility use at least one of these dose optimization techniques: automated exposure control; mA and/or kV adjustment per patient size (includes targeted exams where dose is matched to clinical indication); or iterative reconstruction. COMPARISON: CT Head without contrast 08/30/2016 8:14 AM FINDINGS: Brain: There is no acute intracranial hemorrhage, cerebral edema, or midline shift. Chronic microvascular ischemic changes are seen in the periventricular white matter. Age-related cerebral and cerebellar volume loss is present. Cerebral ventricles: Mild ex vacuo dilation of the lateral and third ventricles is noted. Bones/joints: No acute fracture. Paranasal sinuses: There is no acute sinusitis. Mastoid air cells: The mastoid air cells are clear. Orbital cavity: The included orbital structures are unremarkable. Vasculature: Atherosclerotic calcifications are seen involving the cavernous carotid arteries. Soft tissues: Unremarkable. IMPRESSION: 1. No acute intracranial abnormality. 2. Atrophy and chronic deep white matter ischemic changes. Electronically signed by: Dakotah Johnson On 10/05/2020 18:35:10 PM
--- NOTE | 2020-10-05 18:43 | REP ---
INDICATION: Altered Mental Status. COMPARISON: 02/17/2019. TECHNIQUE: Single portable AP view of the chest was performed. FINDINGS: There is chronic pleural and parenchymal scarring in the right lung base which is stable. No new infiltrate is seen bilaterally. There is [id number] cardiomegaly. There is calcification of the thoracic aorta. There is a left single lead pacemaker again noted. IMPRESSION: No acute pulmonary disease.Stable chronic changes. [id number] cardiomegaly. <Electronically signed by Ken Guillen > 10/05/20 [id number]
[2020-10-05 19:06] LABS: BASO % 0.3 % (0.0-1.0); EOS # 0.1 10^3/uL (0.0-0.5); EOS % 0.6 % (0.0-3.0); HEMATOCRIT 38.5 % (36.0-47.0); HEMOGLOBIN 12.9 g/dl (12.0-15.5); LYMPH # 0.7 10^3/uL (1.5-5.0); LYMPH % 6.8 % (24.0-44.0); MEAN CORPUSCULAR HEMOGLOBIN 33.2 pg (27.0-33.0); MEAN CORPUSCULAR HGB CONC 33.5 g/dl (32.0-36.5); MEAN CORPUSCULAR VOLUME 99.2 fl (80.0-96.0); MONO # 1.2 10^3/uL (0.0-0.8); MONO % 11.5 % (2.0-8.0); NEUTROPHILS # 8.6 10^3/uL (1.5-8.5); PLATELET COUNT, AUTOMATED 200 10^3/uL (150-450); RED BLOOD COUNT 3.88 10^6/uL (4.00-5.40); WHITE BLOOD COUNT 10.8 10^3/uL (4.0-10.0)
[2020-10-05 19:32] LABS: INR 1.21; PROTHROMBIN TIME 15.5 SECONDS (12.5-14.3)
[2020-10-05 19:33] LABS: PARTIAL THROMBOPLASTIN TIME 35.8 SECONDS (24.2-38.5)
[2020-10-05 19:52] LABS: ALBUMIN 3.2 GM/DL (3.2-5.2); ALT/SGPT 19 U/L (12-78); BILIRUBIN,DIRECT 0.2 MG/DL (0.0-0.2); BILIRUBIN,TOTAL 0.7 MG/DL (0.2-1.0); BLOOD UREA NITROGEN 18 MG/DL (7-18); CALCIUM LEVEL 8.7 MG/DL (8.8-10.2); CARBON DIOXIDE LEVEL 33 MEQ/L (21-32); CHLORIDE LEVEL 96 MEQ/L (98-107); CK-MB VALUE MASS < 1.0 NG/ML (<3.6); CPK CREATINE PHOSPHOKINASE 33 U/L (26-192); CREATININE FOR GFR 0.98 MG/DL (0.55-1.30); DIGOXIN LEVEL 2.2 NG/ML (0.5-2.0); GLUCOSE, FASTING 88 MG/DL (70-100); MB/CK RELATIVE INDEX 3.03 (< OR =4); POTASSIUM SERUM 3.8 MEQ/L (3.5-5.1); SODIUM LEVEL 137 MEQ/L (136-145); TOTAL PROTEIN 6.8 GM/DL (6.4-8.2); TROPONIN I < 0.02 NG/ML (< 0.10); VALPROIC ACID (DEPAKOTE) 76.1 UG/ML (50.0-100.0)
[2020-10-05] MEDS ORDERED: ISOVUE-370 76% 100ML VIAL As Ordered ONE (20:06)
[2020-10-05] MEDS ORDERED: CIPROFLOXACIN 400 MG in IV 1 EA IV ONE (20:20)
--- NOTE | 2020-10-05 20:37 | REPVR ---
PROCEDURE INFORMATION: Exam: CT Angiography Neck With Contrast Exam date and time: 10/05/2020 8:10 PM Age: 89 years old Clinical indication: Weakness TECHNIQUE: Imaging protocol: Computed tomography angiography of the neck with contrast. 3D rendering (Not supervised by radiologist): MIP and/or 3D reconstructed images were created by the technologist. Radiation optimization: All CT scans at this facility use at least one of these dose optimization techniques: automated exposure control; mA and/or kV adjustment per patient size (includes targeted exams where dose is matched to clinical indication); or iterative reconstruction. Contrast material: ISOVUE 370; Contrast volume: 75 ml; Contrast route: INTRAVENOUS (IV); COMPARISON: No relevant prior studies available. FINDINGS: Right common carotid artery: No stenosis. No dissection or occlusion. Right internal carotid artery: There is mild calcified plaque in the proximal right internal carotid artery. No stenosis. Right external carotid artery: No occlusion or stenosis of the origin. Right vertebral artery: No stenosis. No dissection or occlusion. Left common carotid artery: No stenosis. No dissection or occlusion. Left internal carotid artery: No stenosis of the extracranial segment. No dissection or occlusion. Left external carotid artery: No occlusion or stenosis of the origin. Left vertebral artery: No stenosis. No dissection or occlusion. Thyroid: 13 mm calcified left thyroid nodule. Bones/joints: There is multilevel cervical spondylosis and disc narrowing. Soft tissues: Normal. No significant soft tissue swelling. IMPRESSION: 1. Bilateral carotid bifurcation calcified plaque without significant stenosis. 2. No vertebral artery stenosis COMMENTS: Consistent with the [employer]'s Incidental Findings Committee white paper (J Am Obed Radiol 2015): In patients aged 35 years and older with an incidental thyroid nodule equal to or greater than 1.[address], MRI or extrathyroidal US, further evaluation with dedicated thyroid US is recommended for patients with normal life expectancy and without comorbidities. For smaller nodules without suspicious features, no further evaluation or follow up is recommended. REFERENCES: NASCET CRITERIA. The degree of internal carotid artery stenosis is based on NASCET criteria. Normal is no stenosis. Mild is less than 50% stenosis. Moderate is 50-69% stenosis. Severe is 70% to 99% stenosis. Total occlusion is no detectable patent lumen. Electronically signed by: Teja Szymanski On 10/05/2020 20:36:58 PM
--- NOTE | 2020-10-05 20:42 | REPVR ---
PROCEDURE INFORMATION: Exam: CT Angiography Head With Contrast, Arteriography Exam date and time: 10/05/2020 8:10 PM Age: 89 years old Clinical indication: Weakness TECHNIQUE: Imaging protocol: Computed tomography angiography of the head with contrast. Exam focused on the arteries. 3D rendering (Not supervised by radiologist): MIP and/or 3D reconstructed images were created by the technologist. Radiation optimization: All CT scans at this facility use at least one of these dose optimization techniques: automated exposure control; mA and/or kV adjustment per patient size (includes targeted exams where dose is matched to clinical indication); or iterative reconstruction. Contrast material: ISOVUE 370; Contrast volume: 75 ml; Contrast route: INTRAVENOUS (IV); COMPARISON: CT Head without contrast 10/05/2020 6:19 PM FINDINGS: Limitations: Axial images are 2 mm. No thin slice images. ANTERIOR CIRCULATION: Right internal carotid artery: Unremarkable. Intracranial segment is patent with no significant stenosis. No aneurysm. Right middle cerebral artery: Unremarkable. No occlusion or significant stenosis. No aneurysm. Right anterior cerebral artery: Unremarkable. No occlusion or significant stenosis. No aneurysm. Left internal carotid artery: Unremarkable. Intracranial segment is patent with no significant stenosis. No aneurysm. Left middle cerebral artery: Unremarkable. No occlusion or significant stenosis. No aneurysm. Left anterior cerebral artery: Unremarkable. No occlusion or significant stenosis. No aneurysm. POSTERIOR CIRCULATION: Right vertebral artery: The right vertebral artery is hypoplastic. It terminates at the level of the right PICA. No aneurysm. Left vertebral artery: The left vertebral artery is dominant. No stenosis. No aneurysm. Basilar artery: The basilar artery is relatively hypoplastic. This is related to the bilateral origin ASSISTANT TO THE VICE PRESIDENT. No superimposed stenosis. No aneurysm. Right posterior cerebral artery: There is a origin of the right posterior cerebral artery. No stenose did no aneurysm. Left posterior cerebral artery: There is a origin of the left posterior cerebral artery. No stenosis. No aneurysm. Brain: No definite mass, mass effect, or midline shift. Cerebral ventricles: No ventriculomegaly. Bones/joints: Unremarkable. No acute fracture. Soft tissues: Unremarkable. IMPRESSION: No intracranial stenosis or occlusion. Electronically signed by: Teja Szymanski On 10/05/2020 20:42:41 PM
[2020-10-05] MEDS ORDERED: NS 500 ML IV ONE (21:00)
[2020-10-05] MEDS ORDERED: DIVA1CAP PO (21:47)
[2020-10-05] MEDS ORDERED: POTA20EL PO (21:47)
[2020-10-05] MEDS ORDERED: DONE10TA90 PO (21:47)
[2020-10-05] MEDS ORDERED: MULTCHW12 PO (21:47)
[2020-10-05] MEDS ORDERED: SYNT50TA PO (21:47)
[2020-10-05] MEDS ORDERED: MEMA1TAB3 PO (21:47)
[2020-10-05] MEDS ORDERED: ACETAMINOPHEN TAB 650MG DOSE (2X325MG) PO PRN (22:15)
[2020-10-05] MEDS: atenoloL 50 MG TAB PO SCH (22:28)
[2020-10-05] MEDS ORDERED: SODIUM CHLORIDE 0.9% 1000ML IV STA (22:35)
[2020-10-05 22:45] LABS: RSV AMPLIFICATION NEGATIVE (NEGATIVE)
[2020-10-05] MEDS: DIVALPROEX SPRINKLE 125 MG CAP PO SCH (22:57)
[2020-10-05] MEDS: MEMANTINE 5MG TABLET (NAMENDA) PO SCH (22:58)
[2020-10-05] MEDS: APIXABAN 2.5 MG TAB (ELIQUIS) PO SCH (22:58)
[2020-10-06] VITALS (7 sets, daily range): BP systolic 88–106; BP diastolic 52–57
--- NOTE | 2020-10-06 00:13 | HPEPDOC ---
[facility] Medical History & Physical Date of Admission Oct 05, 2020 Date of Service: Oct 05, 2020 Attending Physician: ABDIAS SARGENT MD History and Physical CHIEF COMPLAINT: Altered mental status HISTORY OF PRESENT ILLNESS: Patient is an 89-year-old female who presents to the emergency department with altered mental status. Patient's daughter is present and says the patient was acting her normal self around noon time. Patient's daughter came back from work around 4 PM and noticed the patient acting very strange and not really responding. Patient does have a history of dementia however, the patient's mental status was worse than her normal. Patient was eating and drinking without any difficulty prior to this happening. Patient's daughter denies patient having any fevers although she did say she was saying she was cold. Patient received her second Covid 19 vaccination on 10/04/2020. Girma link received Moderna. In the emergency department, patient was sleeping. Patient had been reportedly weak in the emergency department and CT angiograms of the head and neck were ordered as patient could not undergo MRI due to pacemaker. Patient stated that she did not have any pain with the exception of her right knee which is chronic pain due to osteoarthritis. Patient does not have any other complaints. PAST MEDICAL HISTORY: 1. Atrial fibrillation status post pacemaker placement. 2. Hypothyroidism. 3. Dementia. 4. Lung cancer 5. Breast cancer 6. Osteoarthritis PAST SURGICAL HISTORY: 1. Lower lobe lobectomy on the right lung. 2. Cholecystectomy. 3. Lumpectomy. 4. Left total knee replacement 5. Pacemaker placement 6. Umbilical hernia repair SOCIAL HISTORY: Patient lives in an apartment next door to the daughter's home. 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 Patient did drink very seldomly but has not really had any alcohol in the last 7 years. No illicit drug use FAMILY HISTORY: Noncontributory ALLERGIES: Please see below. REVIEW OF SYSTEMS: Review of systems unable to be fully obtained from the patient however, the patient does not complain of any pain at this time. Daughter says the patient was not complaining of anything at home prior to her altered mental status. HOME MEDICATIONS: Please see below. PHYSICAL EXAMINATION: VITAL SIGNS: Temperature 97.9, pulse 60, respiratory rate 18, blood pressure 92/55 (67), pulse oximetry 93% on room air. General: Alert but not oriented female who was laying on the stretcher in the emergency department when I walked into the room. Patient's daughter was present. Patient did not appear to be in any acute distress. HEENT: Normocephalic, atraumatic, moist mucous membranes. Neck: No lymphadenopathy or thyromegaly Cardiac: Irregularly irregular rhythm with non-tachycardic rate, no murmurs, normal S1, normal S2 Pulm: Clear to auscultation bilaterally. No wheezes, rhonchi, rales Abd: Nondistended, nontender to palpation, normal bowel sounds Ext: Swelling and tenderness around the knee, no erythema or heat coming from the joint, daughter says this is what the knee usually looks like, no pretibial edema. Neuro: Patient is able to move her lower extremities and upper extremities. Patient says she can feel me lightly touching her lower extremities bilaterally LABORATORY DATA: See below. IMAGING: A chest x-ray performed on 10/05/2020 was reported to show no acute pulmonary disease. Stable chronic changes. Mild to moderate cardiomegaly. A CT of the head performed without contrast on 10/05/2020 was reported to show no acute intracranial abnormality, atrophy and chronic deep white matter ischemic changes. A CT angiogram of the head performed on 10/05/2020 was reported to show no intracranial stenosis or occlusion. A CT angiogram of the neck performed on 10/05/2020 was reported to show bilateral carotid bifurcation calcified plaque without significant stenosis. No vertebral artery stenosis. MICROBIOLOGY: Please see below. ASSESSMENT: Patient is an 89-year-old female presented to the emergency department earlier today with altered mental status and weakness was found to have possible urinary tract infection and sepsis from this.. . PLAN: 1. Sepsis secondary to urinary tract infection. Patient was given a bolus of 500 mL in the emergency department which did temporarily raise his blood pressure. Patient's blood pressure began to fall close to a map of 65. 30 mL per KG bolus was given to the patient at this time. Lactic acid was elevated at 2.3. We will repeat this after bolus. Patient was given ciprofloxacin as the patient has an allergy to penicillins and sulfa antibiotics. Most likely source is urine. 2. Urinary tract infection. Patient's urinary analysis showed positive leuk esterase and bacteria. Patient was started on ciprofloxacin secondary to penicillin allergy. I did review the patient's chart to see if she had ever received a cephalosporin and tolerated this however, she has never received a cephalosporin in our facility. We will await cultures. 3. Atrial fibrillation. Patient is currently rate controlled and has a pacemaker. Patient is on Eliquis for anticoagulation. Patient is on atenolol and digoxin for rate control. Atenolol has hold parameters due to low blood pressure. 4. Dementia. Patient's daughter will be staying with the patient overnight and will continue to reorient the patient as needed. 5. Hypothyroidism. We'll continue the patient's home medication. 6. DVT prophylaxis: Continue with Eliquis. 7. CODE STATUS: DNR/DNI. I spoke with patient's daughter who is her healthcare proxy about this and she is in agreement with DNR/DNI. Disposition: Patient will be admitted to the progressive care unit for further monitoring. We expect greater than to midnight stay. Vital Signs Vital Signs Date Time Temp Pulse Resp B/P (MAP) Pulse Ox O2 Delivery O2 Flow Rate FiO2 10/05/20 22:28 60 92/55 10/05/20 22:15 18 93 Room Air 10/05/20 21:45 97.9 Laboratory Data Labs 24H Laboratory Tests 2 10/05/20 18:50: Immature Granulocyte % (Auto) 0.8, Neutrophils (%) (Auto) 80.0H, Lymphocytes (%) (Auto) 6.8L, Monocytes (%) (Auto) 11.5H, Eosinophils (%) (Auto) 0.6, Basophils (%) (Auto) 0.3, Neutrophils # (Auto) 8.6H, Lymphocytes # (Auto) 0.7L, Monocytes # (Auto) 1.2H, Eosinophils # (Auto) 0.1, Basophils # (Auto) 0.0, Nucleated Red Blood Cells % (auto) 0.0, Anion Gap 8, Glomerular Filtration Rate 57.0, Calcium Level 8.7L, Total Bilirubin 0.7, Direct Bilirubin 0.2, Aspartate Amino Transf (AST/SGOT) 24, Alanine Aminotransferase (ALT/SGPT) 19, Alkaline Phosphatase 107, Total Creatine Kinase 33, Creatine Kinase MB < 1.0, Creatine Kinase MB Relative Index 3.03, Troponin I < 0.02, Total Protein 6.8, Albumin 3.2, Albumin/Globulin Ratio 0.9L, Thyroid Stimulating Hormone (TSH) 6.330H, Digoxin Level 2.2H, Valproic Acid (Depakene) Level 76.1 10/05/20 19:19: Urine Color YELLOW, Urine Appearance CLEAR, Urine pH 5.0, Urine Specific [place] 1.006, Urine Protein NEGATIVE, Urine Glucose (UA) NEGATIVE, Urine Ketones NEGATIVE, Urine Blood NEGATIVE, Urine Nitrite NEGATIVE, Urine Bilirubin NEGATIVE, Urine Urobilinogen 0.2, Urine Leukocyte Esterase 2+H, Urine WBC (Auto) 35H, Urine RBC (Auto) 1, Urine Hyaline Casts (Auto) 0, Urine Bacteria (Auto) 1+H, Urine Squamous Epithelial Cells 0, Urine Sperm (Auto) 10/05/20 19:20: Prothrombin Time 15.5H, Prothromb Time International Ratio 1.21, Activated Partial Thromboplast Time 35.8 10/05/20 21:29: Lactic Acid Level 2.3*H 10/05/20 21:33: Coronavirus (COVID-19)(PCR) NEGATIVE, Influenza Type A (RT-PCR) NEGATIVE, Influenza Type B (RT-PCR) NEGATIVE, Respiratory Syncytial Virus (PCR) NEGATIVE CBC/BMP Laboratory Tests 10/05/20 18:50 Microbiology Microbiology 10/05/20 Blood Culture, Received Pending 10/05/20 Blood Culture, Received Pending 10/05/20 Urine Culture, Received Pending Home Medications Scheduled Apixaban (Eliquis) 2.5 Mg Tab, 2.5 MG PO BID Atenolol (Atenolol) 50 Mg Tab, 50 MG PO BID Digoxin (Digoxin) 125 Mcg Tab, 125 MCG PO DAILY Divalproex Sodium (Depakote Sprinkle) 125 Mg Cap., 125 MG PO DAILY Divalproex Sodium (Divalproex Sodium) 125 Mg Cap., 250 MG PO QHS Donepezil HCl (Donepezil HCl) 10 Mg Tablet, 10 MG PO QHS Folic Acid/Multivit-Min/Lutein (Multi-Vitamin Gummies) 1 Each Tab.chew, 2 CHW PO DAILY Levothyroxine Sodium (Synthroid) 50 Mcg Tablet, 50 MCG PO DAILY Memantine HCl (Memantine HCl) 5 Mg Tablet, 5 MG PO QHS Potassium Chloride (Potassium Chloride) 20 Meq/15 Ml Liquid, 20 MEQ PO QPM TAKES AT DINNERTIME; MIXES IN 4 OZ OF LIQUID Allergies Coded Allergies: Penicillins (Verified Allergy, Unknown, rash, 03/23/20) Sulfa (Sulfonamide Antibiotics) (Verified Allergy, Unknown, rash, 03/23/20) latex (Verified Allergy, Unknown, rash, 03/23/20) A-FIB/CHADSVASC A-FIB History Current/History of A-Fib/PAF?: Yes Current PO Anticoag Therapy: Yes Treatment Treatment ordered: Apixaban GME ATTESTATION GME ATTESTATION My faculty preceptor for this patient encounter was physically present during the encounter and was fully available. All aspects of the patient interview, examination, medical decision making process, and medical care plan development were reviewed and approved by the faculty preceptor. The faculty preceptor is aw are and concurs with the plan as stated in the body of this note and will attest to such by his/her cosignature. ATTENDING NOTE Digoxin level 2.2. Hold dose. Repeat digoxin 10/07/20. LINWOOD SUAZO DO Oct 06, 2020 00:13 ABDIAS SARGENT MD Oct 06, 2020 06:45
[2020-10-06] MEDS ORDERED: SLF 3 ML SYR IV PRN (01:20)
[2020-10-06] MEDS: LEVOTHYROXINE 50MCG TABLET (0.05MG) PO SCH (05:33)
[2020-10-06] MEDS: SLF 3 ML SYR IV SCH ×3 (05:34→20:40)
[2020-10-06] MEDS: atenoloL 50 MG TAB PO SCH ×2 (08:52→20:21)
[2020-10-06 08:58] LABS: HEMATOCRIT 33.6 % (36.0-47.0); HEMOGLOBIN 11.4 g/dl (12.0-15.5); MEAN CORPUSCULAR HGB CONC 33.9 g/dl (32.0-36.5); MEAN CORPUSCULAR VOLUME 100.3 fl (80.0-96.0); PLATELET COUNT, AUTOMATED 129 10^3/uL (150-450); RED BLOOD COUNT 3.35 10^6/uL (4.00-5.40); WHITE BLOOD COUNT 6.4 10^3/uL (4.0-10.0)
[2020-10-06 09:28] LABS: ALBUMIN 2.2 GM/DL (3.2-5.2); ALT/SGPT 11 U/L (12-78); BILIRUBIN,TOTAL 0.7 MG/DL (0.2-1.0); BLOOD UREA NITROGEN 14 MG/DL (7-18); CALCIUM LEVEL 7.8 MG/DL (8.8-10.2); CARBON DIOXIDE LEVEL 30 MEQ/L (21-32); CHLORIDE LEVEL 104 MEQ/L (98-107); CREATININE FOR GFR 0.71 MG/DL (0.55-1.30); FREE T4 1.14 NG/DL (0.76-1.46); GLOMERULAR FILTRATION RATE > 60.0 (>32); GLUCOSE, FASTING 69 MG/DL (70-100); MAGNESIUM LEVEL 1.6 MG/DL (1.8-2.4); POTASSIUM SERUM 3.3 MEQ/L (3.5-5.1); SODIUM LEVEL 140 MEQ/L (136-145); TOTAL PROTEIN 4.9 GM/DL (6.4-8.2)
[2020-10-06] MEDS: APIXABAN 2.5 MG TAB (ELIQUIS) PO SCH ×2 (09:45→20:38)
[2020-10-06] MEDS: DIVALPROEX SPRINKLE 125 MG CAP PO SCH ×2 (09:45→20:39)
[2020-10-06] MEDS ORDERED: POTASSIUM CHLORIDE 10 MEQ SR TABLET PO ONE (09:45)
[2020-10-06] MEDS ORDERED: MAG SULF 1GM/100ML (MAG RUN) 1 GM in IV 1 EA IV ONE (09:45)
[2020-10-06] MEDS: CIPROFLOXACIN 200 MG in IV 1 EA IV SCH ×2 (09:46→20:38)
--- NOTE | 2020-10-06 09:52 | ECGEPIP ---
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
--- NOTE | 2020-10-06 12:52 | IPNPDOC ---
Text Note Date of Service The patient was seen on 10/06/20. NOTE SUBJECTIVE: -No acute complaints, now oriented and mentation has returned to her baseline. Daughter present. OBJECTIVE: VITAL SIGNS: see below General: NAD HEENT: Normocephalic, atraumatic, moist mucous membranes. Neck: No lymphadenopathy or thyromegaly, supple Cardiac: Irregularly irregular rhythm, rate controlled, no murmurs, normal S1, normal S2 Pulm: Clear to auscultation bilaterally. No wheezes, rhonchi, rales Abd: Nondistended, nontender to palpation, normal bowel sounds Ext: no LE edema, WWP Neuro: Patient is able to move her lower extremities and upper extremities. CN 2-12 intact. LABORATORY DATA: Reviewed WBC 6.4 Hgb 11.4 Platelets 129 Na 140 K 3.3 (repleted) Mag 1.6 (repleted) Cr 0.71 IMAGING: A chest x-ray performed on 10/05/2020 was reported to show no acute pulmonary disease. Stable chronic changes. Mild to moderate cardiomegaly. A CT of the head performed without contrast on 10/05/2020 was reported to show no acute intracranial abnormality, atrophy and chronic deep white matter ischemic changes. A CT angiogram of the head performed on 10/05/2020 was reported to show no intracranial stenosis or occlusion. A CT angiogram of the neck performed on 10/05/2020 was reported to show bilateral carotid bifurcation calcified plaque without significant stenosis. No vertebral artery stenosis. MICROBIOLOGY: Please see below. ASSESSMENT: 89-year-old W who presented with altered mental status and weakness was found to have sepsis 2/2 an ongoing UTI. PLAN: 1. Sepsis secondary to urinary tract infection: -Continue ciprofloxacin as the patient has an allergy to penicillins and sulfa antibiotics. Day 2 -f/u UCx -s/p IVF Chronic atrial fibrillation. -Currently rate controlled and has a pacemaker. -continue Eliquis for anticoagulation. -Continue atenolol and digoxin for rate control Acute metabolic encephalopathy on chronic dementia i/s/o sepsis. -treating infection per above -family presence does help Hypothyroidism. -continue levothyroxine DVT prophylaxis: -continue home Eliquis. CODE STATUS: DNR/DNI. Disposition: Inpatient. In PCU with recent Afib w/ episodes of RVR. VS,Fishbone, I+O VS, Fishbone, I+O Laboratory Tests 10/05/20 18:50 10/06/20 08:04 Vital Signs Date Time Temp Pulse Resp B/P (MAP) Pulse Ox O2 Delivery O2 Flow Rate FiO2 10/06/20 08:52 80 100/56 10/06/20 08:00 96.6 17 95 Room Air I&O- Last 24 Hours up to 6 AM 10/06/20 06:00 Intake Total 1600 ml Output Total 850 ml Balance 750 ml SEBASTIAN GARCIA MD Oct 06, 2020 09:57
[2020-10-06] MEDS: NS 1,000 ML IV SCH (15:26)
[2020-10-06] MEDS: POTASSIUM CHLORIDE 10% LIQ 20 MEQ/15 ML UDC PO SCH (17:08)
[2020-10-06] MEDS: MEMANTINE 5MG TABLET (NAMENDA) PO SCH (20:38)
[2020-10-07] MEDS: NS 1,000 ML IV SCH ×3 (01:00→20:27)
[2020-10-07 05:50] VITALS: BP 91/55
[2020-10-07] MEDS: LEVOTHYROXINE 50MCG TABLET (0.05MG) PO SCH (05:55)
[2020-10-07] MEDS: SLF 3 ML SYR IV SCH ×3 (05:55→20:28)
[2020-10-07 07:45] LABS: DIGOXIN LEVEL 1.5 NG/ML (0.5-2.0)
[2020-10-07 08:20] LABS: HEMATOCRIT 32.5 % (36.0-47.0); HEMOGLOBIN 10.4 g/dl (12.0-15.5); MEAN CORPUSCULAR VOLUME 103.2 fl (80.0-96.0); PLATELET COUNT, AUTOMATED 128 10^3/uL (150-450); RED BLOOD COUNT 3.15 10^6/uL (4.00-5.40); WHITE BLOOD COUNT 5.4 10^3/uL (4.0-10.0)
[2020-10-07 08:27] LABS: BLOOD UREA NITROGEN 13 MG/DL (7-18); CALCIUM LEVEL 7.9 MG/DL (8.8-10.2); CARBON DIOXIDE LEVEL 28 MEQ/L (21-32); CHLORIDE LEVEL 108 MEQ/L (98-107); CREATININE FOR GFR 0.71 MG/DL (0.55-1.30); GLOMERULAR FILTRATION RATE > 60.0 (>32); GLUCOSE, FASTING 74 MG/DL (70-100); SODIUM LEVEL 141 MEQ/L (136-145)
[2020-10-07] MEDS ORDERED: MAG SULF 1GM/100ML (MAG RUN) 1 GM in IV 1 EA IV ONE (09:00)
[2020-10-07] MEDS: DIVALPROEX SPRINKLE 125 MG CAP PO SCH ×2 (10:09→20:28)
[2020-10-07] MEDS: CIPROFLOXACIN 250MG TAB PO SCH ×2 (10:09→20:27)
[2020-10-07] MEDS: APIXABAN 2.5 MG TAB (ELIQUIS) PO SCH ×2 (10:09→20:28)
[2020-10-07] MEDS: DIGOXIN 0.125 MG TAB PO SCH (10:10)
--- NOTE | 2020-10-07 11:56 | IPNPDOC ---
Text Note Date of Service The patient was seen on 10/07/20. NOTE SUBJECTIVE: -No acute complaints BP remains soft this AM OBJECTIVE: VITAL SIGNS: see below General: NAD HEENT: Normocephalic, atraumatic, moist mucous membranes. Neck: No lymphadenopathy or thyromegaly, supple Cardiac: Irregularly irregular rhythm, rate controlled, no murmurs, normal S1, normal S2 Pulm: Clear to auscultation bilaterally. No wheezes, rhonchi, rales Abd: Nondistended, nontender to palpation, normal bowel sounds Ext: no LE edema, WWP Neuro: Patient is able to move her lower extremities and upper extremities. CN 2-12 intact. LABORATORY DATA: Reviewed, pending AM labs Microbiology: UCx growing Citrobacter IMAGING: A chest x-ray performed on 10/05/2020 was reported to show no acute pulmonary disease. Stable chronic changes. Mild to moderate cardiomegaly. A CT of the head performed without contrast on 10/05/2020 was reported to show no acute intracranial abnormality, atrophy and chronic deep white matter ischemic changes. A CT angiogram of the head performed on 10/05/2020 was reported to show no int racranial stenosis or occlusion. A CT angiogram of the neck performed on 10/05/2020 was reported to show bilateral carotid bifurcation calcified plaque without significant stenosis. No vertebral artery stenosis. MICROBIOLOGY: Please see below. ASSESSMENT: 89-year-old W who presented with altered mental status and weakness was found to have sepsis 2/2 an ongoing UTI. PLAN: 1. Sepsis secondary to Citrobacter urinary tract infection: -Continue ciprofloxacin, Day 3, switched from IV to PO (has the same bi oavailability) -UCx growing citrobacter -cont IVF Chronic atrial fibrillation. -Currently rate controlled and has a pacemaker. -continue Eliquis for anticoagulation. -Holding atenolol and continuing digoxin for rate control Acute metabolic encephalopathy on chronic dementia i/s/o sepsis. -treating infection per above -family presence does help Hypothyroidism. -continue levothyroxine DVT prophylaxis: -continue home Eliquis. CODE STATUS: DNR/DNI. Disposition: Inpatient. Medsurg. VS,Fishbone, I+O VS, Fishbone, I+O Vital Signs Date Time Temp Pulse Resp B/P (MAP) Pulse Ox O2 Delivery O2 Flow Rate FiO2 10/07/20 05:50 97.2 68 20 91/55 (36) 99 Room Air I&O- Last 24 Hours up to 6 AM 10/07/20 06:00 Intake Total 1240 ml Balance 1240 ml SEBASTIAN GARCIA MD October 07, 2020 08:17
[2020-10-07 14:00] VITALS: BP 90/56
[2020-10-07] MEDS: POTASSIUM CHLORIDE 10% LIQ 20 MEQ/15 ML UDC PO SCH (18:00)
[2020-10-07 20:24] VITALS: BP 126/61
[2020-10-07] MEDS: MEMANTINE 5MG TABLET (NAMENDA) PO SCH (20:28)
[2020-10-08] MEDS: LEVOTHYROXINE 50MCG TABLET (0.05MG) PO SCH (05:50)
[2020-10-08] MEDS: NS 1,000 ML IV SCH (05:50)
[2020-10-08] MEDS: SLF 3 ML SYR IV SCH (05:50)
[2020-10-08 05:53] VITALS: BP 105/50
[2020-10-08 07:57] LABS: HEMATOCRIT 30.1 % (36.0-47.0); HEMOGLOBIN 9.7 g/dl (12.0-15.5); MEAN CORPUSCULAR HEMOGLOBIN 33.6 pg (27.0-33.0); MEAN CORPUSCULAR HGB CONC 32.2 g/dl (32.0-36.5); MEAN CORPUSCULAR VOLUME 104.2 fl (80.0-96.0); PLATELET COUNT, AUTOMATED 110 10^3/uL (150-450); RED BLOOD COUNT 2.89 10^6/uL (4.00-5.40); WHITE BLOOD COUNT 4.6 10^3/uL (4.0-10.0)
[2020-10-08 08:14] LABS: BLOOD UREA NITROGEN 9 MG/DL (7-18); CALCIUM LEVEL 7.8 MG/DL (8.8-10.2); CARBON DIOXIDE LEVEL 27 MEQ/L (21-32); CHLORIDE LEVEL 112 MEQ/L (98-107); CREATININE FOR GFR 0.69 MG/DL (0.55-1.30); GLOMERULAR FILTRATION RATE > 60.0 (>32); GLUCOSE, FASTING 74 MG/DL (70-100); POTASSIUM SERUM 4.1 MEQ/L (3.5-5.1); SODIUM LEVEL 143 MEQ/L (136-145)
[2020-10-08] MEDS ORDERED: CIPR-250 PO (09:35)
[2020-10-08] MEDS: DIVALPROEX SPRINKLE 125 MG CAP PO SCH (09:36)
[2020-10-08] MEDS: CIPROFLOXACIN 250MG TAB PO SCH (09:36)
[2020-10-08] MEDS: DIGOXIN 0.125 MG TAB PO SCH (09:36)
[2020-10-08] MEDS: APIXABAN 2.5 MG TAB (ELIQUIS) PO SCH (09:36)
--- NOTE | 2020-10-08 12:08 | DS.PDOC ---
Discharge Summary General Date of Admission Oct 05, 2020 at 23:04 Date of Discharge 10/08/2020 Attending Physician: SEBASTIAN GARCIA MD Discharge Summary PROCEDURES PERFORMED DURING STAY: None ADMITTING DIAGNOSES: Hypotension UTI Sepsis DISCHARGE DIAGNOSES: Citrobacter UTI Sepsis 2/2 UTI Atrial fibrillation status post pacemaker placement Anemia Hypothyroidism Dementia History of Lung cancer History of Breast cancer Osteoarthritis COMPLICATIONS/CHIEF COMPLAINT: Hypotension,Uti. HISTORY OF PRESENT ILLNESS: 89-year-old W who presented to the emergency department with altered mental status. Patient's daughter reported that her mother had been in her usual state of health earlier on the day of presentation but was later acting very strange and not really responding which was quite different from her usual state despite diagnosis of dementia. She otherwise had not had any noted fevers and had received her second Covid 19 Moderna vaccination on 10/04/2020. HOSPITAL COURSE: In the emergency department, she had CT head and CT angiograms of the head and neck were ordered as patient could not undergo MRI due to pacemaker and these did not show evidence of an acute stroke. Patient stated that she did not have any pain with the exception of her right knee which is chronic pain due to osteoarthritis. She had a UA that was positive and was started on empiric cipro and was also given IV fluids for hypotension. UCx eventually grew citrobacter sensitive to cipro and so will be completing her UTI course with ciprofloxacin. Of note, Ms. Howell is on atenolol 50 BID but had soft BPs throughout this hospitalization sometimes requiring IVF for hypotension, mind you it was i/s/o, but I was concerned that she does not require aggressive antihypensive therapy as she may have required before. She was also well rate controlled with digoxin alone. I am therefore discharging her home with the ciprofloxacin course for the UTI, continuing her digoxin but will discontinue her atenolol at this time with plan for review by her fumigator and sterilizer, Dr. Torres shortly in clinic. Also of note, after hydration, her labs revealed anemia without any bleeding sequale. Will defer to PCP for outpatient workup as she has had a history of anemia. DISCHARGE MEDICATIONS: Please see below. ALLERGIES: Please see below. PHYSICAL EXAMINATION ON DISCHARGE: VITAL SIGNS: Please see below. General: NAD HEENT: Normocephalic, atraumatic, moist mucous membranes. Neck: No lymphadenopathy or thyromegaly, supple Cardiac: Irregularly irregular rhythm, rate controlled, no murmurs, normal S1, normal S2 Pulm: Clear to auscultation bilaterally. No wheezes, rhonchi, rales Abd: Nondistended, nontender to palpation, normal bowel sounds Ext: 1+ pitting bilateral LE edema, WWP Neuro: Patient is ambulatory with a walker. I walked her myself with good balance. CN 2-12 intact. Full strength 5/5 throughout. LABORATORY DATA: see below Microbiology: UCx growing Citrobacter IMAGING: A chest x-ray performed on 10/05/2020 was reported to show no acute pulmonary disease. Stable chronic changes. Mild to moderate cardiomegaly. A CT of the head performed without contrast on 10/05/2020 was reported to show no acute intracranial abnormality, atrophy and chronic deep white matter ischemic changes. A CT angiogram of the head performed on 10/05/2020 was reported to show no intracranial stenosis or occlusion. A CT angiogram of the neck performed on 10/05/2020 was reported to show bilateral carotid bifurcation calcified plaque without significant stenosis. No vertebral artery stenosis. ACTIVITY: As tolerated DIET: 2g sodium DISCHARGE PLAN: Home with family DISPOSITION: Home DISCHARGE INSTRUCTIONS: Please complete the cipro as prescribed. please discontinue atenolol until you see Dr. Torres. ITEMS TO FOLLOWUP ON ON OUTPATIENT: UTI resolution HTN medications review Afib rate control review now that atenolol has been stopped Anemia DISCHARGE CONDITION: Stable TIME SPENT ON DISCHARGE: 35 minutes. Vital Signs/I&Os Vital Signs Date Time Temp Pulse Resp B/P (MAP) Pulse Ox O2 Delivery O2 Flow Rate FiO2 10/08/20 05:53 98.0 62 18 105/50 (68) 99 Room Air I&O- Last 24 Hours up to 6 AM 10/08/20 06:00 Intake Total 1070 ml Balance 1070 ml Laboratory Data Labs 24H Laboratory Tests 2 10/08/20 07:05: Nucleated Red Blood Cells % (auto) 0.0, Anion Gap 4L, Glomerular Filtration Rate > 60.0, Calcium Level 7.8L CBC/BMP Laboratory Tests 10/08/20 07:05 Microbiology Microbiology 10/05/20 Blood Culture - Preliminary, Resulted No Growth after 48 hours. All Specime... 10/05/20 Blood Culture - Preliminary, Resulted No Growth after 48 hours. All Specime... 10/05/20 Urine Culture - Final, Complete Citrobacter Freundii Discharge Medications Scheduled Apixaban (Eliquis) 2.5 Mg Tab, 2.5 MG PO BID, (Reported) Ciprofloxacin HCl (Cipro) 250 Mg Tablet, 250 MG PO BID Digoxin (Digoxin) 125 Mcg Tab, 125 MCG PO DAILY, (Reported) Divalproex Sodium (Depakote Sprinkle) 125 Mg Cap., 125 MG PO DAILY, (Reported) Divalproex Sodium (Divalproex Sodium) 125 Mg Cap., 250 MG PO QHS, (Reported) Donepezil HCl (Donepezil HCl) 10 Mg Tablet, 10 MG PO QHS, (Reported) Folic Acid/Multivit-Min/Lutein (Multi-Vitamin Gummies) 1 Each Tab.chew, 2 CHW PO DAILY, (Reported) Levothyroxine Sodium (Synthroid) 50 Mcg Tablet, 50 MCG PO DAILY, (Reported) Memantine HCl (Memantine HCl) 5 Mg Tablet, 5 MG PO QHS, (Reported) Potassium Chloride (Potassium Chloride) 20 Meq/15 Ml Liquid, 20 MEQ PO QPM, (Reported) TAKES AT DINNERTIME; MIXES IN 4 OZ OF LIQUID Allergies Coded Allergies: Penicillins (Verified Allergy, Unknown, rash, 03/23/20) Sulfa (Sulfonamide Antibiotics) (Verified Allergy, Unknown, rash, 1 ) latex (Verified Allergy, Unknown, rash, 03/23/20) SEBASTIAN GARCIA MD October 08, 2020 12:08
== END 2020-10-08 13:05 | disposition home or self-care (01) | DRG 871 ==
LOC: M ED 17:50 → M ED INP 23:04 → ENRESERV 23:20 → M PCU 10-06 00:17 → M MS5PR 10-06 14:46
PROVIDERS: ADMIT Family Medicine; ATTEND Internal Medicine
DX: A41.9 Sepsis, unspecified organism (principal); G93.41 Metabolic encephalopathy; N39.0 Urinary tract infection, site not specified; I48.20 Chronic atrial fibrillation, unspecified; F03.90 Unspecified dementia, unspecified severity, without behavioral disturbance, psychotic disturbance, mood disturbance, and anxiety; M19.90 Unspecified osteoarthritis, unspecified site; Z85.3 Personal history of malignant neoplasm of breast; Z85.118 Personal history of other malignant neoplasm of bronchus and lung; E03.9 Hypothyroidism, unspecified; Z95.0 Presence of cardiac pacemaker; D64.9 Anemia, unspecified; Z79.899 Other long term (current) drug therapy; Z88.0 Allergy status to penicillin; Z88.2 Allergy status to sulfonamides; Z91.040 Latex allergy status; Z96.652 Presence of left artificial knee joint; Z66 Do not resuscitate

== ENCOUNTER → 2020-10-15 | Outpatient (CLI) | payer MEDICARE, MEDICAID ==
[~2020-10-15] MED LIST changes: +DIVA1CAP PO; +MULTCHW12 PO; +POTA20EL PO; +SYNT50TA PO
--- NOTE | 2020-10-15 11:34 | REP ---
INDICATION: PAIN IN LEFT SHOULDER/MAIN REG WAITING ROOM. COMPARISON: None. TECHNIQUE: Three views of the left shoulder were performed. FINDINGS: The acromioclavicular and glenohumeral relationships are within normal limits. There is hypertrophic degenerative change seen involving the AC joint. There is no acute fracture or destructive osseous lesion. IMPRESSION: Chronic changes as described above. <Electronically signed by Olayinka العراقي > 10/15/20 [id number]
== END ==
LOC: M RAD 10:16
PROVIDERS: ATTEND Physician Assistant
DX: M25.512 Pain in left shoulder (principal); M19.012 Primary osteoarthritis, left shoulder

== ENCOUNTER → 2021-02-09 | Outpatient (CLI) | payer MEDICARE, MEDICAID ==
[~2021-02-09] MED LIST changes: +QUET1TAB17 PO; -QUET25TA3 PO
[2021-02-09 11:59] LABS: HEMATOCRIT 42.8 % (36.0-47.0); MEAN CORPUSCULAR HEMOGLOBIN 32.7 pg (27.0-33.0); MEAN CORPUSCULAR HGB CONC 32.7 g/dl (32.0-36.5); PLATELET COUNT, AUTOMATED 174 10^3/uL (150-450); RED BLOOD COUNT 4.28 10^6/uL (4.00-5.40); WHITE BLOOD COUNT 5.6 10^3/uL (4.0-10.0)
[2021-02-09 14:42] LABS: ALBUMIN 3.1 GM/DL (3.2-5.2); ALT/SGPT 20 U/L (12-78); BILIRUBIN,TOTAL 0.8 MG/DL (0.2-1.0); BLOOD UREA NITROGEN 14 MG/DL (7-18); CALCIUM LEVEL 9.3 MG/DL (8.8-10.2); CARBON DIOXIDE LEVEL 34 MEQ/L (21-32); CHLORIDE LEVEL 103 MEQ/L (98-107); CHOLESTEROL LEVEL 180 MG/DL (<200); CHOLESTEROL RISK RATIO 2.571 (<5); CPK CREATINE PHOSPHOKINASE 49 U/L (26-192); CREATININE FOR GFR 0.78 MG/DL (0.55-1.30); FREE T4 1.03 NG/DL (0.76-1.46); GLOMERULAR FILTRATION RATE > 60.0 (>32); GLUCOSE, FASTING 75 MG/DL (70-100); HDL CHOLESTEROL 70 MG/DL (>40); LDL CHOLESTEROL 88 MG/DL (<100); NON-HDL-C 110 MG/DL; SODIUM LEVEL 141 MEQ/L (136-145); TOTAL 25(OH) VITAMIN D 57.1 NG/ML (30.0-100.0); TOTAL PROTEIN 6.4 GM/DL (6.4-8.2); TRIGLYCERIDES LEVEL 109 MG/DL (<150)
== END ==
LOC: M WUC 09:19
PROVIDERS: ATTEND Nurse Practitioner Family
DX: E55.9 Vitamin D deficiency, unspecified (principal); I10 Essential (primary) hypertension; E03.9 Hypothyroidism, unspecified; E78.5 Hyperlipidemia, unspecified

== ENCOUNTER → 2021-02-15 | Outpatient (REF) | payer MEDICARE, MEDICAID ==
[~2021-02-15] MED LIST changes: +CETI-24 PO; +NITR100C2 PO
== END ==
LOC: M WUC 09:43
PROVIDERS: ATTEND Physician Assistant
DX: R30.0 Dysuria (principal)

== ENCOUNTER 2021-02-18 20:43 | Inpatient (IN) | payer MEDICARE, MEDICAID ==
[~2021-02-18] VITALS: Ht 157.5 cm; Wt 45.2 kg
[~2021-02-18 20:43] MED LIST changes: -CETI-24 PO; -NITR100C2 PO
[2021-02-18] MEDS ORDERED: NITR100C2 PO (21:14)
--- NOTE | 2021-02-18 23:36 | REPVR ---
PROCEDURE INFORMATION: Exam: CT Head Without Contrast Exam date and time: 02/18/2021 10:32 PM Age: 89 years old Clinical indication: Injury or trauma; Fall; Blunt trauma (contusions or hematomas) TECHNIQUE: Imaging protocol: Computed tomography of the head without contrast. Radiation optimization: All CT scans at this facility use at least one of these dose optimization techniques: automated exposure control; mA and/or kV adjustment per patient size (includes targeted exams where dose is matched to clinical indication); or iterative reconstruction. COMPARISON: 1. CT Head without contrast 2020-10-05 18:[address] ANGIO HEAD 2020-10-05 20:09 FINDINGS: Brain: Diffuse moderate cerebral age related volume loss. Moderate patchy low attenuation in the white matter compatible with moderate chronic small vessel ischemic disease. No midline shift, mass, fluid collection, or evidence of hemorrhage. Cerebral ventricles: Ventricular enlargement proportional to volume loss. Paranasal sinuses: Visualized sinuses are unremarkable. No fluid levels. Mastoid air cells: Visualized mastoid air cells are well aerated. Bones/joints: Unremarkable. No acute fracture. Soft tissues: Unremarkable. IMPRESSION: Moderate involutional changes, no acute intracranial abnormality. Electronically signed by: Wyatt Spain On 02/18/2021 23:35:44 PM
--- NOTE | 2021-02-18 23:54 | REPVR ---
PROCEDURE INFORMATION: Exam: CT Cervical Spine Without Contrast Exam date and time: 02/18/2021 10:32 PM Age: 89 years old Clinical indication: Injury or trauma; Fall; Blunt trauma TECHNIQUE: Imaging protocol: Computed tomography images of the cervical spine without contrast. Radiation optimization: All CT scans at this facility use at least one of these dose optimization techniques: automated exposure control; mA and/or kV adjustment per patient size (includes targeted exams where dose is matched to clinical indication); or iterative reconstruction. COMPARISON: 1. CT ANGIO NECK 2020-10-05 20:[address] Head without contrast 2020-10-05 18:19 FINDINGS: Bones/joints: Normal spinal curvature, vertebral body heights, and alignment. No spinal fracture or acute subluxation. Discs/Spinal canal/Neural foramina: Diffuse degenerative disc space loss with degenerative disc osteophyte complexes, facet arthropathy, and ligamentum flavum thickening causes up to moderate spinal and moderate to severe foraminal stenosis greatest at C4-C6. Thyroid: Peripherally calcified left thyroid lobe 1.1 cm nodule appears unchanged. Esophagus: Patulous esophagus. Lungs: Right apical lung pleural thickening. Vasculature: There is mild atherosclerotic calcification of the carotid arteries. Soft tissues: Unremarkable. IMPRESSION: No acute vertebral fracture/subluxation. COMMENTS: Consistent with the [employer]'s Incidental Findings Committee white paper (J Am Obed Radiol 2015): In patients aged 35 years and older with an incidental thyroid nodule equal to or greater than 1.[address], MRI or extrathyroidal US, further evaluation with dedicated thyroid US is recommended for patients with normal life expectancy and without comorbidities. For smaller nodules without suspicious features, no further evaluation or follow up is recommended. Electronically signed by: Wyatt Spain On 02/18/2021 23:53:41 PM
[2021-02-19 00:11] LABS: BASO % 0.5 % (0.0-1.0); EOS # 0.2 10^3/uL (0.0-0.5); EOS % 2.2 % (0.0-3.0); HEMATOCRIT 35.1 % (36.0-47.0); HEMOGLOBIN 11.9 g/dl (12.0-15.5); LYMPH # 0.3 10^3/uL (1.5-5.0); LYMPH % 3.8 % (24.0-44.0); MEAN CORPUSCULAR HEMOGLOBIN 32.9 pg (27.0-33.0); MEAN CORPUSCULAR HGB CONC 33.9 g/dl (32.0-36.5); MONO # 0.8 10^3/uL (0.0-0.8); MONO % 8.9 % (2.0-8.0); NEUTROPHILS # 7.1 10^3/uL (1.5-8.5); NEUTROPHILS % 83.4 % (36.0-66.0); PLATELET COUNT, AUTOMATED 131 10^3/uL (150-450); RED BLOOD COUNT 3.62 10^6/uL (4.00-5.40); WHITE BLOOD COUNT 8.5 10^3/uL (4.0-10.0)
[2021-02-19 00:16] LABS: ALBUMIN 2.6 GM/DL (3.2-5.2); ALT/SGPT 17 U/L (12-78); BILIRUBIN,DIRECT 0.2 MG/DL (0.0-0.2); BILIRUBIN,TOTAL 0.7 MG/DL (0.2-1.0); BLOOD UREA NITROGEN 16 MG/DL (7-18); CALCIUM LEVEL 8.3 MG/DL (8.8-10.2); CARBON DIOXIDE LEVEL 28 MEQ/L (21-32); CHLORIDE LEVEL 100 MEQ/L (98-107); FREE T4 1.03 NG/DL (0.76-1.46); GLOMERULAR FILTRATION RATE > 60.0 (>32); GLUCOSE, FASTING 106 MG/DL (70-100); POTASSIUM SERUM 4.1 MEQ/L (3.5-5.1); SODIUM LEVEL 136 MEQ/L (136-145); TOTAL PROTEIN 5.6 GM/DL (6.4-8.2)
--- NOTE | 2021-02-19 01:02 | REPVR ---
PROCEDURE INFORMATION: Exam: XR Chest Exam date and time: 02/18/2021 11:21 PM Age: 89 years old Clinical indication: Injury or trauma; Fall; Blunt trauma (contusions or hematomas); Additional info: Weakness TECHNIQUE: Imaging protocol: XR of the chest. Views: 1 view. COMPARISON: 1. [place] PORTABLE CHEST X-RAY 10/05/2020 6:28 PM 2. OT PET/CT INIT STAGE LUNG CA NON 06/16/2014 11:04:58 AM FINDINGS: Tubes, catheters and devices: There is a single lead left subclavian pacemaker device terminating in the expected location of the right ventricle. Lungs: There is scarring of the lung apices. Right basilar atelectasis is present. Pleural spaces: There is a small right pleural effusion. No pneumothorax is identified. Heart/Mediastinum: The cardiac silhouette is enlarged and similar in size compared to the prior chest x-ray on 10/05/2020. Bones/joints: There is a mild levoscoliosis at the thoracolumbar junction and degenerative changes in the thoracic spine and upper lumbar spine. The right humeral head is high-riding as a result of a chronic full-thickness right rotator cuff tear. There are degenerative changes of both glenohumeral joints. IMPRESSION: 1. Small right pleural effusion with associated right basilar atelectasis. 2. High riding right humeral head as a result of a chronic full-thickness right rotator cuff tear. 3. Cardiomegaly, which is similar in appearance compared to the prior chest x-ray on 10/05/2020. Electronically signed by: Rachid Mohan On 02/19/2021 01:02:32 AM
--- NOTE | 2021-02-19 01:02 | REPVR ---
PROCEDURE INFORMATION: Exam: XR Right Tibia and Fibula Exam date and time: 02/18/2021 11:21 PM Age: 89 years old Clinical indication: Injury or trauma; Fall; Blunt trauma; Lower leg; Right TECHNIQUE: Imaging protocol: XR Right tibia and fibula. Views: 2 views. COMPARISON: CR KNEE COMPLETE RIGHT 08/04/2019 4:33:02 PM FINDINGS: Bones/joints: There is no acute fracture or dislocation of the right tibia or fibula. There is severe osteoarthritis of the right knee. There is a posterior calcaneal spur at the insertion of the Achilles tendon, which is compatible with a right Achilles enthesopathy. Soft tissues: There is a plantar calcaneal spur at the origin of the right plantar fascia. Vasculature: There are atherosclerotic calcifications. IMPRESSION: 1. No acute fracture or dislocation of the right tibia or fibula. 2. Severe osteoarthritis of the right knee. Electronically signed by: Rachid Mohan On 02/19/2021 01:02:16 AM
--- NOTE | 2021-02-19 01:02 | REPVR ---
PROCEDURE INFORMATION: Exam: XR Left Knee Exam date and time: 02/18/2021 11:21 PM Age: 89 years old Clinical indication: Injury or trauma; Fall; Blunt trauma; Knee; Left TECHNIQUE: Imaging protocol: XR Left knee. Views: 4 or more views. COMPARISON: CR Tibia, Fibula lower leg 09/16/2016 5:56:48 PM FINDINGS: Bones/joints: There is no acute fracture or dislocation of the left knee. Left total knee arthroplasty hardware is in place, and the hardware is intact and appropriately positioned, without radiographic evidence for loosening, a periprosthetic fracture, osteolysis, bony destructive changes, heterotopic ossification, or wear of the polyethylene liner. There is a well corticated ossicle superior to the patella, which was also present in in the left tibia and fibula x-rays on 09/16/2016. Soft tissues: Unremarkable. Vasculature: There are atherosclerotic calcifications. IMPRESSION: 1. No acute fracture or dislocation of the left knee. 2. Left total knee arthroplasty hardware in place without radiographic evidence for hardware related complication. Electronically signed by: Rachid Mohan On 02/19/2021 01:01:56 AM
--- NOTE | 2021-02-19 01:03 | REPVR ---
PROCEDURE INFORMATION: Exam: XR Right Shoulder Exam date and time: 02/18/2021 11:21 PM Age: 89 years old Clinical indication: Injury or trauma; Fall; Blunt trauma (contusions or hematomas); Shoulder; Right TECHNIQUE: Imaging protocol: XR Right shoulder. Views: 2 or more views. COMPARISON: CT PORTABLE CHEST X-RAY 10/05/2020 6:28 PM FINDINGS: Bones/joints: There is no fracture of the right shoulder. There is osteoarthritis involving the right glenohumeral joint and right acromioclavicular joint. No widening of the right acromioclavicular joint space or right coracoclavicular space is noted to suggest a right acromioclavicular separation injury. Lungs: There is right basilar atelectasis. Pleural space: There is a small right pleural effusion. Soft tissues: The right humeral head is high riding, indicating a chronic full-thickness right rotator cuff tear. IMPRESSION: 1. No fracture of the right shoulder. 2. High riding right humeral head as result of a chronic full-thickness right rotator cuff tear. 3. Small right pleural effusion with associated right basilar atelectasis. Electronically signed by: Rachid Mohan On 02/19/2021 01:03:04 AM
[2021-02-19] MEDS ORDERED: MAALOX 30 ML SUSP *UDC PO PRN (02:00)
[2021-02-19] MEDS ORDERED: MOM 30ML SUSPENSION UDC PO PRN (02:00)
[2021-02-19] MEDS ORDERED: ACETAMINOPHEN TAB 650MG DOSE (2X325MG) PO PRN (02:00)
[2021-02-19] MEDS ORDERED: POTA20EL PO (02:19)
[2021-02-19] MEDS ORDERED: CETI-24 PO (02:20)
[2021-02-19] MEDS ORDERED: HOME MED LIST COMPLETE! XX SCH (02:25)
--- NOTE | 2021-02-19 02:26 | HPEPDOC ---
[facility] Medical History & Physical Date of Admission Feb 19, 2021 Date of Service: Feb 19, 2021 Attending Physician: HOMERO MAYORGA MD History and Physical TIME OF SERVICE: 320am CHIEF COMPLAINT: fall HISTORY OF PRESENT ILLNESS: The history was obtained from daughter the patient has advance dementia. Over the weekend had episodes of confusion, freezing, staring into space & difficulties walking. She had 3 falls which prompted her daughter to bring her to the ER. At her baseline the patient usually walks w a cane but today she was unable to walk with assistance and had to be lifted. Despite her dementia she is usually more expressive than she has been over the last few days. The patient also mentioned wanting to go to the bathroom and had an episode of incontinence. REVIEW OF SYSTEMS: unable to obtain bc the patient has dementia PAST MEDICAL/ SURGICAL HISTORY: dementia, debility uses cane, A fib w pacemaker placement, hypothyroidism, OA, lung cancer in remission, breast cancer in remission, knee replacement, cholecystectomy FAMILY HISTORY: her mother at 93 and her father at 67 SOCIAL HISTORY: Lives with her daughter. She has never smoked ALLERGIES: Please see below. HOME MEDICATIONS: Please see below. PHYSICAL EXAMINATION: Vital Signs Date Time Temp Pulse Resp B/P (MAP) Pulse Ox O2 Delivery O2 Flow Rate FiO2 02/18/21 21:01 99.3 78 16 108/56 (73) 99 Room Air GENERAL APPEARANCE: slim build /well developed/ NAD HEENT: EOMI / MMM&P CARDIOVASCULAR: RRR/NMRG LUNGS: CTAB on RA ABDOMEN: contour concave/ soft & NT w palpation INTEGUMENT: she is not pale or diaphoretic NEUROLOGICAL: speech not dysarthric PSYCHIATRIC: asleep but arousable w physical stimuli LABORATORY DATA: IMAGING: CT cervical spine IMPRESSION: No acute vertebral fracture/subluxation. Chest xray IMPRESSION: 1. Small right pleural effusion with associated right basilar atelectasis. 2. High riding right humeral head as a result of a chronic full-thickness right rotator cuff tear. 3. Cardiomegaly, which is similar in appearance compared to the prior chest x-ray on 10/05/2020. CT head IMPRESSION: Moderate involutional changes, no acute intracranial abnormality. Knee xray IMPRESSION: 1. No acute fracture or dislocation of the left knee. 2. Left total knee arthroplasty hardware in place without radiographic evidence for hardware related complication. Shoulder xray IMPRESSION: 1. No fracture of the right shoulder. 2. High riding right humeral head as result of a chronic full-thickness right rotator cuff tear. 3. Small right pleural effusion with associated right basilar atelectasis. Tib/Fib xray IMPRESSION: 1. No acute fracture or dislocation of the right tibia or fibula. 2. Severe osteoarthritis of the right knee. MICROBIOLOGY: Respiratory panel neg ASSESSMENT: is an 89 yr old with dementia, debility uses cane, A fib w pacemaker placement, hypothyroidism, OA, admitted for metabolic encephalopathy possibly 2/2 UTI. PLAN: 1 Metabolic Encephalopathy Possibly 2/2 UTI Plan: neurochecks /treat infection/ if her AMS doest resolve despite infection the day time team may consider MRI of the brain / check Digoxin & Valproic acid levels 2 UTI Plan: IV Levofloxacin / f/u kearns cx results 3 Falls Plan: fall precautions / the day time team may consider PT consult 4 A fib w pacemaker placement Plan: Eliquis, Digoxin / f/u dig levels 5 Seizure disorder? Plan; f/u valproic acid levels / Divalproex 6 hypothyroidism Plan: levothyroxine 7 Dementia Plan; donepezil and memantine DVT n/a on DOAC Dispo: home vs placement after at least 2 midnights stay Home Medications Scheduled Apixaban (Eliquis) 2.5 Mg Tab, 2.5 MG PO BID Cetirizine HCl (Cetirizine HCl) 10 Mg Tablet, 10 MG PO DAILY Digoxin (Digoxin) 125 Mcg Tab, 125 MCG PO DAILY Divalproex Sodium (Depakote Sprinkle) 125 Mg Cap., 125 MG PO QAM Divalproex Sodium (Divalproex Sodium) 125 Mg Cap., 250 MG PO QHS Donepezil HCl (Donepezil HCl) 10 Mg Tablet, 10 MG PO QHS Folic Acid/Multivit-Min/Lutein (Multi-Vitamin Gummies) 1 Each Tab.chew, 2 CHW PO DAILY Levothyroxine Sodium (Synthroid) 50 Mcg Tablet, 50 MCG PO DAILY Memantine HCl (Memantine HCl) 5 Mg Tablet, 5 MG PO QHS Nitrofurantoin Monohyd/M-Cryst (Nitrofurantoin Mchenry-Mcr 100 mg) 100 Mg Capsule, 100 MG PO BID started 02-15-21 x 5 days Potassium Chloride (Potassium Chloride) 20 Meq/15 Ml Liquid, 15 ML PO QHS dilute in half glass of water/juice Allergies Coded Allergies: ampicillin (Verified Allergy, Mild, rash, 02/18/21) Penicillins (Verified Allergy, Unknown, rash, 03/23/20) Sulfa (Sulfonamide Antibiotics) (Verified Allergy, Unknown, rash, 03/23/20) latex (Verified Allergy, Unknown, rash, 03/23/20) A-FIB/CHADSVASC A-FIB History Current/History of A-Fib/PAF?: No Current PO Anticoag Therapy: No HOMERO MAYORGA MD Feb 19, 2021 02:26
[2021-02-19] MEDS: MEMANTINE 5MG TABLET (NAMENDA) PO SCH ×2 (02:30→20:50)
[2021-02-19] MEDS: POTASSIUM CHLORIDE 10% LIQ 20 MEQ/15 ML UDC PO SCH ×2 (02:30→20:50)
[2021-02-19] MEDS: DIVALPROEX SPRINKLE 125 MG CAP PO SCH ×3 (02:30→20:50)
[2021-02-19] MEDS: DONEPEZIL 5 MG TAB PO SCH ×2 (02:30→20:50)
[2021-02-19] MEDS: APIXABAN 2.5 MG TAB (ELIQUIS) PO SCH ×3 (02:30→20:50)
[2021-02-19 03:24] LABS: VALPROIC ACID (DEPAKOTE) 68.9 UG/ML (50.0-100.0)
[2021-02-19] MEDS ORDERED: LevoFLOXacin IV 500 MG in IV 1 EA IV SCH (06:00)
--- NOTE | 2021-02-19 06:04 | ECGEPIP ---
[facility] - ED Test Date: 2021-02-18 Pat Name: FLORES REED Department: Room: [place] [address] Gender: Female [employer] Operator: LAKEISHA : [id number] Requested By: TIFFANI Barnes Order Number: [id number] Reading MD: Telma Akhtar Measurements Intervals [place] Rate: 82 P: WI: QRS: -7 QRSD: 80 T: 234 QT: 368 QTc: 429 Interpretive Statements Atrial fibrillation Nonspecific T wave abnormality low QRS voltage limb leads cw 10/05/20 rate increased improved anterior st t wave changes Nonspecific ST T wave changes Electronically Signed on 02-19-2021 6:04:20 EDT by Telma Akhtar
[2021-02-19] MEDS: LEVOTHYROXINE 50MCG TABLET (0.05MG) PO SCH (06:08)
[2021-02-19 08:12] LABS: HEMATOCRIT 35.3 % (36.0-47.0); HEMOGLOBIN 11.9 g/dl (12.0-15.5); MEAN CORPUSCULAR HEMOGLOBIN 32.9 pg (27.0-33.0); MEAN CORPUSCULAR HGB CONC 33.7 g/dl (32.0-36.5); MEAN CORPUSCULAR VOLUME 97.5 fl (80.0-96.0); PLATELET COUNT, AUTOMATED 119 10^3/uL (150-450); RED BLOOD COUNT 3.62 10^6/uL (4.00-5.40); WHITE BLOOD COUNT 8.1 10^3/uL (4.0-10.0)
[2021-02-19 08:24] LABS: BLOOD UREA NITROGEN 13 MG/DL (7-18); CARBON DIOXIDE LEVEL 27 MEQ/L (21-32); CHLORIDE LEVEL 102 MEQ/L (98-107); CREATININE FOR GFR 0.65 MG/DL (0.55-1.30); GLOMERULAR FILTRATION RATE > 60.0 (>32); GLUCOSE, FASTING 80 MG/DL (70-100); POTASSIUM SERUM 3.8 MEQ/L (3.5-5.1); SODIUM LEVEL 135 MEQ/L (136-145)
[2021-02-19 08:25] LABS: CALCIUM LEVEL 8.1 MG/DL (8.8-10.2)
[2021-02-19 08:41] LABS: DIGOXIN LEVEL 1.6 NG/ML (0.5-2.0)
[2021-02-19] MEDS: DIGOXIN 0.125 MG TAB PO SCH (10:00)
[2021-02-19] MEDS: LR 1,000 ML IV SCH ×2 (11:39→20:49)
[2021-02-19 11:56] VITALS: BP_SYST 83; BP_SYST 86; BP_SYST 87; BP_DIAS 54; BP_DIAS 55; BP_DIAS 58
[2021-02-19 12:22] LABS: PROLACTIN 3.1 NG/ML
--- NOTE | 2021-02-19 12:50 | IPN ---
PROGRESS NOTE DATE: 02/19/2021 SUBJECTIVE: Afshan is seen in the ER interim bed. She has advanced dementia, increasingly confused over the weekend, had three falls, was brought to the Emergency Room, being admitted for further evaluation. The nursing staff notes that her systolic blood pressure is falling into the 80s although she seems well-perfused, alert, conversant and expressing no symptoms. OBJECTIVE: VITAL SIGNS: Blood pressure is 85/48, pulse is 78, 97% O2 saturation. She is alert, conversant, she feels "just wonderful." HEENT: Grossly unremarkable. LUNGS: Clear. HEART: Regular rhythm. There is a 1/6 systolic ejection murmur. ABDOMEN: Soft, nontender. No masses. No CVA tenderness. EXTREMITIES: No peripheral edema. She is alert and conversant with arms and legs with equal strength. IMPRESSION: 1. Hypotension. I have ordered lactated ringers at 100 an hour. This could probably be discontinued tomorrow. 2. Change in mental status. The etiology is unknown. The urine culture is pending. Respiratory panel was negative. Urinalysis on admission was not compelling. She is currently on a fairly high dose of Levaquin for someone 89 so we will be reducing that. 3. Hypothyroidism. TSH is normal on current dose of levothyroxine. 4. Dementia, continue Aricept 10 mg q.h.s., Namenda 5 mg q.h.s. 5. Atrial fibrillation. She is on Digoxin. Her Digoxin level is therapeutic. She is also on Eliquis 2.5 mg b.i.d. for thromboembolic prophylaxis. 6. Seizure disorder. She is on Depakote 125 mg in the morning, 250 mg at bedtime with a therapeutic Depakote level.
[2021-02-19 16:00] VITALS: BP 96/55
[2021-02-19 20:00] VITALS: BP 91/52
[2021-02-20] VITALS: BP 97/55
[2021-02-20 04:00] VITALS: BP 106/53
[2021-02-20 05:35] LABS: HEMOGLOBIN 10.3 g/dl (12.0-15.5); MEAN CORPUSCULAR HEMOGLOBIN 32.6 pg (27.0-33.0); MEAN CORPUSCULAR HGB CONC 33.2 g/dl (32.0-36.5); MEAN CORPUSCULAR VOLUME 98.1 fl (80.0-96.0); PLATELET COUNT, AUTOMATED 121 10^3/uL (150-450); RED BLOOD COUNT 3.16 10^6/uL (4.00-5.40)
[2021-02-20] MEDS: LEVOTHYROXINE 50MCG TABLET (0.05MG) PO SCH (05:41)
[2021-02-20] MEDS: LR 1,000 ML IV SCH (05:42)
[2021-02-20 05:58] LABS: BLOOD UREA NITROGEN 19 MG/DL (7-18); CALCIUM LEVEL 8.3 MG/DL (8.8-10.2); CARBON DIOXIDE LEVEL 28 MEQ/L (21-32); CHLORIDE LEVEL 105 MEQ/L (98-107); CREATININE FOR GFR 0.72 MG/DL (0.55-1.30); GLOMERULAR FILTRATION RATE > 60.0 (>32); GLUCOSE, FASTING 92 MG/DL (70-100); POTASSIUM SERUM 4.2 MEQ/L (3.5-5.1); SODIUM LEVEL 138 MEQ/L (136-145)
[2021-02-20 07:52] VITALS: BP 121/58
[2021-02-20] MEDS: APIXABAN 2.5 MG TAB (ELIQUIS) PO SCH ×2 (08:50→20:23)
[2021-02-20] MEDS: DIGOXIN 0.125 MG TAB PO SCH (08:51)
[2021-02-20] MEDS: DIVALPROEX SPRINKLE 125 MG CAP PO SCH ×2 (08:51→20:23)
[2021-02-20] MEDS ORDERED: ISOVUE-370 76% 100ML VIAL As Ordered ONE (11:04)
--- NOTE | 2021-02-20 13:36 | REPVR ---
PROCEDURE INFORMATION: Exam: CT Angiography Head With Contrast, Arteriography Exam date and time: 02/20/2021 11:18 AM Age: 89 years old Clinical indication: Other: R/O CVA; Additional info: Unable to obtain mri. AMS. R/O CVA. TECHNIQUE: Imaging protocol: Computed tomography angiography of the head with contrast. Exam focused on the arteries. 3D rendering (Not supervised by radiologist): MIP and/or 3D reconstructed images were created by the technologist. Radiation optimization: All CT scans at this facility use at least one of these dose optimization techniques: automated exposure control; mA and/or kV adjustment per patient size (includes targeted exams where dose is matched to clinical indication); or iterative reconstruction. Contrast material: ISOVUE 370; Contrast volume: 75 ml; Contrast route: INTRAVENOUS (IV); COMPARISON: 1. CT ANGIO HEAD 10/05/2020 8:[address] Head without contrast 02/18/2021 10:29:18 PM FINDINGS: ANTERIOR CIRCULATION: Right internal carotid artery: Atherosclerotic calcifications are seen involving the right cavernous internal carotid artery. There is no significant stenosis. No aneurysm. Right middle cerebral artery: There is mild stenosis of the right middle cerebral artery (M1 segment). Right anterior cerebral artery: Unremarkable. No occlusion or significant stenosis. No aneurysm. Left internal carotid artery: Atherosclerotic calcifications are seen involving the left cavernous internal carotid artery. There is no significant stenosis. No aneurysm. Left middle cerebral artery: Unremarkable. No occlusion or significant stenosis. No aneurysm. Left anterior cerebral artery: Unremarkable. No occlusion or significant stenosis. No aneurysm. 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 Left vertebral artery: Unremarkable. No occlusion or significant stenosis. No aneurysm. 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 Right posterior cerebral artery: There is persistent origin of the right posterior cerebral artery. There is no definite stenosis. Left posterior cerebral artery: There is persistent origin of the left posterior cerebral artery. There is no stenosis. Brain: No definite mass, cerebral edema, or midline shift. Cerebral ventricles: No ventriculomegaly. Bones/joints: Unremarkable. No acute fracture. Soft tissues: Unremarkable. IMPRESSION: No acute abnormality. No large vessel occlusion. Electronically signed by: Dakotah Johnson On 02/20/2021 13:36:13 PM
--- NOTE | 2021-02-20 13:42 | REPVR ---
PROCEDURE INFORMATION: Exam: CT Angiography Neck With Contrast Exam date and time: 02/20/2021 11:18 AM Age: 89 years old Clinical indication: Other: R/O CVA; Additional info: Unable to obtain mri. AMS. R/O CVA. TECHNIQUE: Imaging protocol: Computed tomography angiography of the neck with contrast. 3D rendering (Not supervised by radiologist): MIP and/or 3D reconstructed images were created by the technologist. Radiation optimization: All CT scans at this facility use at least one of these dose optimization techniques: automated exposure control; mA and/or kV adjustment per patient size (includes targeted exams where dose is matched to clinical indication); or iterative reconstruction. Contrast material: ISOVUE 370; Contrast volume: 75 ml; Contrast route: INTRAVENOUS (IV); COMPARISON: CT ANGIO NECK 10/05/2020 8:09 PM FINDINGS: Right common carotid artery: No stenosis. No dissection or occlusion. Right internal carotid artery: Atherosclerotic calcifications are present at the right carotid bifurcation and within the proximal right internal carotid artery. This is causing less than 15% stenosis of the proximal right ICA. Right external carotid artery: No occlusion or stenosis of the origin. Left common carotid artery: No stenosis. No dissection or occlusion. Left internal carotid artery: Atherosclerotic calcifications are present at the left carotid bifurcation and within the proximal left internal carotid artery. This is causing less than 25% stenosis of the proximal left ICA. There is an 8 mm ovoid enhancing lesion adjacent to the distal left internal carotid artery, similar to the prior exam. This is nonspecific, but could represent a small paraganglioma. Left external carotid artery: No occlusion or stenosis of the origin. Right vertebral artery: No stenosis. No dissection or occlusion. Left vertebral artery: No stenosis. No dissection or occlusion. Aorta: Atherosclerotic calcifications are noted within the aortic arch. Thyroid: A peripherally calcified 14 mm left thyroid nodule appears unchanged. Soft tissues: Normal. No significant soft tissue swelling. Bones/joints: Moderate degenerative changes of the cervical spine are present. Lungs: Abnormal pleural thickening is present along the right lung apex, new since the prior exam. IMPRESSION: 1. No acute abnormality. 2. Chronic findings as discussed above. COMMENTS: Consistent with the [employer]'s Incidental Findings Committee white paper (J Am Obed Radiol 2015): In patients aged 35 years and older with an incidental thyroid nodule equal to or greater than 1.[address], MRI or extrathyroidal US, further evaluation with dedicated thyroid US is recommended for patients with normal life expectancy and without comorbidities. For smaller nodules without suspicious features, no further evaluation or follow up is recommended. REFERENCES: NASCET CRITERIA. The degree of internal carotid artery stenosis is based on NASCET criteria. Normal is no stenosis. Mild is less than 50% stenosis. Moderate is 50-69% stenosis. Severe is 70% to 99% stenosis. Total occlusion is no detectable patent lumen. Electronically signed by: Dakotah Johnson On 02/20/2021 13:42:11 PM
--- NOTE | 2021-02-20 13:48 | IPNPDOC ---
Date Seen The patient was seen on 02/20/21. Progress Note SUBJECTIVE: Patient was seen examined at bedside. Daughter present. Patient appears slightly confused but is otherwise alert sitting upright in bed talking answering questions appropriately. She denies any chest pain shortness of breath palpitations nausea vomiting or diarrhea. I discussed with the daughter the possibility of obtaining an MRI however because the patient has a pacemaker this will not be possible. OBJECTIVE PHYSICAL EXAMINATION: VITAL SIGNS: please see below General: NAD, comfortable HEENT: PERRLA, EOMI, sclerae clear Neck: supple, normal ROM, no JVD Respiratory: lungs CTAB, no wheeze, no rales, no crackles CVS: RRR, normal S1, S2, no murmurs Abdo: soft, no masses, no hepatosplenomegaly, BS+, no rebound tenderness Extremities: no edema, pulses 2+ MSK: no joint deformities, normal ROM Neuro: no focal neuro deficits, moving all 4 extremities, CN2-12 intact. Strength 5/5 in all 4 extremities. No nystagmus. Psych: calm, cooperative, AAO x 3 LABORATORY DATA, IMAGING STUDIES, MICROBIOLOGY: Please see below. DVT prophylaxis ordered?: Y ASSESSMENT AND PLAN: is an 89 yr old with dementia, debility uses cane, A fib w pacemaker placement, hypothyroidism, OA, admitted for metabolic encephalopathy possibly 2/2 UTI. PROBLEMS: Metabolic encephalopathy: possibly 2/[address] head wnl. Obtained CT angio head and neck. UTI: culture pending. Presently on levaquin. Afib s/p pacemaker placement: c/w digoxin. c/w eliquis 2.5 mg bid Seizure disorder: c/w depakote 125 mg qam, 250 mg qpm. Hypothyroidism: c/w levothyroxine. Dementia: c/w aricept 10 mg qhs, namenda 5 mg qhs. VS, I&O, 24H, [place] Vital Signs/I&O Vital Signs Date Time Temp Pulse Resp B/P (MAP) Pulse Ox O2 Delivery O2 Flow Rate FiO2 02/20/21 08:51 83 02/20/21 07:52 97.6 20 121/58 (79) 99 Room Air I&O- Last 24 Hours up to 6 AM 02/20/21 05:59 Intake Total 1250 ml Output Total 0 ml Balance 1250 ml Laboratory Data 24H LABS Laboratory Tests 2 02/20/21 05:02: Nucleated Red Blood Cells % (auto) 0.0, Anion Gap 5L, Glomerular Filtration Rate > 60.0, Calcium Level 8.3L CBC/BMP Laboratory Tests 02/20/21 05:02 Microbiology Microbiology 02/18/21 Urine Culture - Final, Complete 02/18/21 Respiratory Virus Panel (PCR) ([facility]) - Final, Complete ABDIAS SARGENT MD Feb 20, 2021 13:48
[2021-02-20 16:00] VITALS: BP_SYST 102; BP_SYST 123; BP_DIAS 56; BP_DIAS 59
[2021-02-20 20:00] VITALS: BP 99/55
[2021-02-20] MEDS: POTASSIUM CHLORIDE 10% LIQ 20 MEQ/15 ML UDC PO SCH (20:22)
[2021-02-20] MEDS: DONEPEZIL 5 MG TAB PO SCH (20:23)
[2021-02-20] MEDS: MEMANTINE 5MG TABLET (NAMENDA) PO SCH (20:23)
[2021-02-21] VITALS: BP 120/58
[2021-02-21 04:00] VITALS: BP 133/68
[2021-02-21] MEDS: LEVOTHYROXINE 50MCG TABLET (0.05MG) PO SCH (05:22)
[2021-02-21] MEDS ORDERED: LevoFLOXacin 250 MG TABLET PO SCH (06:00)
[2021-02-21 07:28] VITALS: BP 116/63
[2021-02-21 08:38] LABS: BASO # 0.1 10^3/uL (0.0-0.2); BASO % 0.8 % (0.0-1.0); EOS # 0.8 10^3/uL (0.0-0.5); EOS % 13.5 % (0.0-3.0); HEMATOCRIT 34.9 % (36.0-47.0); HEMOGLOBIN 11.5 g/dl (12.0-15.5); LYMPH % 16.7 % (24.0-44.0); MEAN CORPUSCULAR HEMOGLOBIN 32.5 pg (27.0-33.0); MEAN CORPUSCULAR VOLUME 98.6 fl (80.0-96.0); MONO % 16.2 % (2.0-8.0); NEUTROPHILS # 3.1 10^3/uL (1.5-8.5); PLATELET COUNT, AUTOMATED 156 10^3/uL (150-450); RED BLOOD COUNT 3.54 10^6/uL (4.00-5.40); WHITE BLOOD COUNT 5.9 10^3/uL (4.0-10.0)
[2021-02-21] MEDS: APIXABAN 2.5 MG TAB (ELIQUIS) PO SCH (08:57)
[2021-02-21] MEDS: DIVALPROEX SPRINKLE 125 MG CAP PO SCH (08:57)
[2021-02-21] MEDS: DIGOXIN 0.125 MG TAB PO SCH (08:58)
[2021-02-21 08:59] LABS: ALBUMIN 2.3 GM/DL (3.2-5.2); ALT/SGPT 22 U/L (12-78); BILIRUBIN,TOTAL 0.5 MG/DL (0.2-1.0); BLOOD UREA NITROGEN 21 MG/DL (7-18); CALCIUM LEVEL 8.8 MG/DL (8.8-10.2); CARBON DIOXIDE LEVEL 30 MEQ/L (21-32); CHLORIDE LEVEL 106 MEQ/L (98-107); GLOMERULAR FILTRATION RATE > 60.0 (>32); GLUCOSE, FASTING 75 MG/DL (70-100); MAGNESIUM LEVEL 1.4 MG/DL (1.8-2.4); POTASSIUM SERUM 4.5 MEQ/L (3.5-5.1); SODIUM LEVEL 140 MEQ/L (136-145); TOTAL PROTEIN 5.6 GM/DL (6.4-8.2)
[2021-02-21] MEDS: MAG SULF 1GM/100ML (MAG RUN) 1 GM in IV 1 EA IV SCH ×2 (11:52→12:54)
--- NOTE | 2021-02-21 12:47 | DS.PDOC ---
Discharge Summary General Date of Admission Feb 19, 2021 at 01:57 Date of Discharge 02/21/21 Discharge Summary PROCEDURES PERFORMED DURING STAY: [None]. ADMITTING DIAGNOSES: Metabolic encephalopathy UTI Falls Afib s/p pacemaker Seizure disorder Hypothyroidism Dementia DISCHARGE DIAGNOSES: Metabolic encephalopathy UTI Falls Afib s/p pacemaker Seizure disorder Hypothyroidism Dementia COMPLICATIONS/CHIEF COMPLAINT: Falls Frequently. Uti, Weakness. HISTORY OF PRESENT ILLNESS: "The history was obtained from daughter the patient has advance dementia. Over the weekend had episodes of confusion, freezing, staring into space & difficulties walking. She had 3 falls which prompted her daughter to bring her to the ER. At her baseline the patient usually walks w a cane but today she was unable to walk with assistance and had to be lifted. Despite her dementia she is usually more expressive than she has been over the last few days. The patient also mentioned wanting to go to the bathroom and had an episode of incontinence." HOSPITAL COURSE: Metabolic encephalopathy: possibly 2/[address] head wnl. Obtained CT angio head and neck, which showed no stenosis. Patient's mentation has been improving every day according to family. UTI: UA was positive for leukocyte esterase-culture came back negative. Patient appears to be improving on treatment with the Levaquin. We will continue on discharge for 4 more doses 250 mg every 48 hours Afib s/p pacemaker placement: c/w digoxin. c/w eliquis 2.5 mg bid Seizure disorder: c/w depakote 125 mg qam, 250 mg qpm. Hypothyroidism: c/w levothyroxine. Dementia: c/w aricept 10 mg qhs, namenda 5 mg qhs. DISCHARGE MEDICATIONS: Please see below. ALLERGIES: Please see below. PHYSICAL EXAMINATION ON DISCHARGE: VITAL SIGNS: please see below General: NAD, comfortable HEENT: PERRLA, EOMI, sclerae clear Neck: supple, normal ROM, no JVD Respiratory: lungs CTAB, no wheeze, no rales, no crackles CVS: RRR, normal S1, S2, no murmurs Abdo: soft, no masses, no hepatosplenomegaly, BS+, no rebound tenderness Extremities: no edema, pulses 2+ MSK: no joint deformities, normal ROM Neuro: no focal neuro deficits, moving all 4 extremities, CN2-12 intact. Strength 5/5 in all 4 extremities. No nystagmus. Psych: calm, cooperative, AAO x 1-2 LABORATORY DATA: Please see below. IMAGING: CTA head (02/20/21): FINDINGS: ANTERIOR CIRCULATION: Right internal carotid artery: Atherosclerotic calcifications are seen involving the right cavernous internal carotid artery. There is no significant stenosis. No aneurysm. Right middle cerebral artery: There is mild stenosis of the right middle cerebral artery (M1 segment). Right anterior cerebral artery: Unremarkable. No occlusion or significant stenosis. No aneurysm. Left internal carotid artery: Atherosclerotic calcifications are seen involving the left cavernous internal carotid artery. There is no significant stenosis. No aneurysm. Left middle cerebral artery: Unremarkable. No occlusion or significant stenosis. No aneurysm. Left anterior cerebral artery: Unremarkable. No occlusion or significant stenosis. No aneurysm. 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 Left vertebral artery: Unremarkable. No occlusion or significant stenosis. No aneurysm. 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 Right posterior cerebral artery: There is persistent origin of the right posterior cerebral artery. There is no definite stenosis. Left posterior cerebral artery: There is persistent origin of the left posterior cerebral artery. There is no stenosis. Brain: No definite mass, cerebral edema, or midline shift. Cerebral ventricles: No ventriculomegaly. Bones/joints: Unremarkable. No acute fracture. Soft tissues: Unremarkable. IMPRESSION: No acute abnormality. No large vessel occlusion. CTA neck (02/20/21): FINDINGS: Right common carotid artery: No stenosis. No dissection or occlusion. Right internal carotid artery: Atherosclerotic calcifications are present at the right carotid bifurcation and within the proximal right internal carotid artery. This is causing less than 15% stenosis of the proximal right ICA. Right external carotid artery: No occlusion or stenosis of the origin. Left common carotid artery: No stenosis. No dissection or occlusion. Left internal carotid artery: Atherosclerotic calcifications are present at the left carotid bifurcation and within the proximal left internal carotid artery. This is causing less than 25% stenosis of the proximal left ICA. There is an 8 mm ovoid enhancing lesion adjacent to the distal left internal carotid artery, similar to the prior exam. This is nonspecific, but could represent a small paraganglioma. Left external carotid artery: No occlusion or stenosis of the origin. Right vertebral artery: No stenosis. No dissection or occlusion. Left vertebral artery: No stenosis. No dissection or occlusion. Aorta: Atherosclerotic calcifications are noted within the aortic arch. Thyroid: A peripherally calcified 14 mm left thyroid nodule appears unchanged. Soft tissues: Normal. No significant soft tissue swelling. Bones/joints: Moderate degenerative changes of the cervical spine are present. Lungs: Abnormal pleural thickening is present along the right lung apex, new since the prior exam. IMPRESSION: 1. No acute abnormality. 2. Chronic findings as discussed above. Tib/Fib XR R (02/19/21): IMPRESSION: 1. No acute fracture or dislocation of the right tibia or fibula. 2. Severe osteoarthritis of the right knee. R shoulder XR complete (02/19/21): IMPRESSION: 1. No fracture of the right shoulder. 2. High riding right humeral head as result of a chronic full-thickness right rotator cuff tear. 3. Small right pleural effusion with associated right basilar atelectasis. Knee XR L complete (02/19/21): IMPRESSION: 1. No acute fracture or dislocation of the left knee. 2. Left total knee arthroplasty hardware in place without radiographic evidence for hardware related complication. CT head wo contrast (02/18/21): IMPRESSION: Moderate involutional changes, no acute intracranial abnormality CXR (02/19/21); IMPRESSION: Moderate involutional changes, no acute intracranial abnormality PROGNOSIS: good ACTIVITY: [As tolerated]. DIET: as tolerated DISCHARGE PLAN: DC home with home services. DISPOSITION: DC home with home services. DISCHARGE INSTRUCTIONS: . Please follow-up with your primary care doctor within 3-5 days . Please taking medications as prescribed. Please continue to take Levaquin for 3 more doses once every 2 days . If you develop bleeding, chest pain, shortness of breath, seizures, nausea, fevers, or otherwise worsening of your symptoms, please call 911 or return to the nearest emergency room ITEMS TO FOLLOWUP ON ON OUTPATIENT: 1. Final blood cultures. DISCHARGE CONDITION: [Stable]. TIME SPENT ON DISCHARGE: 35 minutes Vital Signs/I&Os Vital Signs Date Time Temp Pulse Resp B/P (MAP) Pulse Ox O2 Delivery O2 Flow Rate FiO2 02/21/21 08:58 70 02/21/21 07:28 97.3 18 116/63 (80) 99 Room Air I&O- Last 24 Hours up to 6 AM 02/21/21 06:00 Intake Total 840 ml Output Total 200 ml Balance 640 ml Laboratory Data Labs 24H Laboratory Tests 2 02/21/21 08:09: Immature Granulocyte % (Auto) 0.8, Neutrophils (%) (Auto) 52.0, Lymphocytes (%) (Auto) 16.7L, Monocytes (%) (Auto) 16.2H, Eosinophils (%) (Auto) 13.5H, Basophils (%) (Auto) 0.8, Neutrophils # (Auto) 3.1, Lymphocytes # (Auto) 1.0L, Monocytes # (Auto) 1.0H, Eosinophils # (Auto) 0.8H, Basophils # (Auto) 0.1, Nucleated Red Blood Cells % (auto) 0.0, Anion Gap 4L, Glomerular Filtration Rate > 60.0, Calcium Level 8.8, Magnesium Level 1.4L, Total Bilirubin 0.5, Aspartate Amino Transf (AST/SGOT) 20, Alanine Aminotransferase (ALT/SGPT) 22, Alkaline Phosphatase 67, Total Protein 5.6L, Albumin 2.3L, Albumin/Globulin Ratio 0.7L CBC/BMP Laboratory Tests 02/21/21 08:09 Microbiology Microbiology 02/21/21 Blood Culture, Received Pending 02/21/21 Blood Culture, Received Pending 02/18/21 Urine Culture - Final, Complete 02/18/21 Respiratory Virus Panel (PCR) ([facility]) - Final, Complete Discharge Medications Scheduled Apixaban (Eliquis) 2.5 Mg Tab, 2.5 MG PO BID, (Reported) Cetirizine HCl (Cetirizine HCl) 10 Mg Tablet, 10 MG PO DAILY, (Reported) Digoxin (Digoxin) 125 Mcg Tab, 125 MCG PO DAILY, (Reported) Divalproex Sodium (Depakote Sprinkle) 125 Mg , 125 MG PO QAM, (Reported) Divalproex Sodium (Divalproex Sodium) 125 Mg Cap, 250 MG PO QHS, (Reported) Donepezil HCl (Donepezil HCl) 10 Mg Tablet, 10 MG PO QHS, (Reported) Folic Acid/Multivit-Min/Lutein (Multi-Vitamin Gummies) 1 Each Tab.chew, 2 CHW PO DAILY, (Reported) Levofloxacin (Levofloxacin) 250 Mg Tablet, 250 MG PO Q48H START TAKING ON 02/23/21 AT 9 AM. CONTINUE TO TAKE ONE TAB EVERY 2 DAYS FOR 3 MORE DOSES. Levothyroxine Sodium (Synthroid) 50 Mcg Tablet, 50 MCG PO DAILY, (Reported) Memantine HCl (Memantine HCl) 5 Mg Tablet, 5 MG PO QHS, (Reported) Nitrofurantoin Monohyd/M-Cryst (Nitrofurantoin [place]-Mcr 100 mg) 100 Mg Capsule, 100 MG PO BID, (Reported) started 02-15-21 x 5 days Potassium Chloride (Potassium Chloride) 20 Meq/15 Ml Liquid, 15 ML PO QHS, (Reported) dilute in half glass of water/juice Scheduled PRN Acetaminophen (Acetaminophen) 325 Mg Tablet, 650 MG PO Q4H PRN for MILD PAIN or TEMP > 101 Allergies Coded Allergies: ampicillin (Verified Allergy, Mild, rash, 02/18/21) Penicillins (Verified Allergy, Unknown, rash, 03/23/20) Sulfa (Sulfonamide Antibiotics) (Verified Allergy, Unknown, rash, 03/23/20) latex (Verified Allergy, Unknown, rash, 03/23/20) ABDIAS SARGENT MD Feb 21, 2021 12:47
[2021-02-21] MEDS ORDERED: LEVO250T12 PO (13:04)
[2021-02-21] MEDS ORDERED: ACET1TAB55 PO (13:04)
== END 2021-02-21 15:38 | disposition home health service (06) | DRG 71 ==
LOC: M ED 20:43 → M ED INP 02-19 01:57 → ENRESERV 02-19 08:20 → M PCU 02-19 11:56
PROVIDERS: ADMIT Internal Medicine; ATTEND Family Medicine
DX: G93.41 Metabolic encephalopathy (principal); N39.0 Urinary tract infection, site not specified; R41.82 Altered mental status, unspecified; I95.9 Hypotension, unspecified; F03.90 Unspecified dementia, unspecified severity, without behavioral disturbance, psychotic disturbance, mood disturbance, and anxiety; R29.6 Repeated falls; I48.91 Unspecified atrial fibrillation; Z95.0 Presence of cardiac pacemaker; G40.909 Epilepsy, unspecified, not intractable, without status epilepticus; E03.9 Hypothyroidism, unspecified; Z79.899 Other long term (current) drug therapy; Z88.0 Allergy status to penicillin; Z88.2 Allergy status to sulfonamides; Z91.040 Latex allergy status

== ENCOUNTER 2021-03-15 20:14 | Inpatient (IN) | payer MEDICARE, MEDICAID ==
[~2021-03-15] VITALS: Ht 160 cm; Wt 48.0 kg
[~2021-03-15 20:14] MED LIST changes: +ACET1TAB55 PO; +CETI-24 PO; +LEVO250T12 PO; +NITR100C2 PO
--- NOTE | 2021-03-15 20:44 | REPVR ---
PROCEDURE INFORMATION: Exam: CT Head Without Contrast Exam date and time: 03/15/2021 8:33 PM Age: 89 years old Clinical indication: Weakness, facial; Additional info: CVA - nursing interventions must not delay CT TECHNIQUE: Imaging protocol: Computed tomography of the head without contrast. Radiation optimization: All CT scans at this facility use at least one of these dose optimization techniques: automated exposure control; mA and/or kV adjustment per patient size (includes targeted exams where dose is matched to clinical indication); or iterative reconstruction. Other technique: STROKE PROTOCOL was implemented. COMPARISON: CT Head without contrast 02/18/2021 10:29 PM FINDINGS: Brain: There are moderate periventricular and subcortical lucencies consistent with chronic microvascular ischemic changes. The choudhary-white differentiation is maintained. No hemorrhage. No edema. Cerebral ventricles: No ventriculomegaly. Paranasal sinuses: Visualized sinuses are unremarkable. No fluid levels. Mastoid air cells: Visualized mastoid air cells are well aerated. Bones/joints: Unremarkable. No acute fracture. Soft tissues: Unremarkable. IMPRESSION: No acute intracranial abnormality. Chronic microvascular ischemic changes. ASSESSMENT: ASPECTS ([place] Stroke Program Early CT Score) is 10. Electronically signed by: Song Youngblood On 03/15/2021 20:43:30 PM
[2021-03-15] MEDS ORDERED: NS 500 ML IV ONE ×2 (20:55→21:30)
[2021-03-15] MEDS: DONEPEZIL 5 MG TAB PO SCH (21:00)
[2021-03-15 21:02] LABS: BASO % 0.5 % (0.0-1.0); EOS % 0.2 % (0.0-3.0); HEMATOCRIT 32.5 % (36.0-47.0); LYMPH # 0.6 10^3/uL (1.5-5.0); LYMPH % 8.6 % (24.0-44.0); MEAN CORPUSCULAR HEMOGLOBIN 33.3 pg (27.0-33.0); MEAN CORPUSCULAR HGB CONC 33.8 g/dl (32.0-36.5); MEAN CORPUSCULAR VOLUME 98.5 fl (80.0-96.0); MONO # 0.9 10^3/uL (0.0-0.8); MONO % 13.2 % (2.0-8.0); PLATELET COUNT, AUTOMATED 145 10^3/uL (150-450); WHITE BLOOD COUNT 6.5 10^3/uL (4.0-10.0)
[2021-03-15 21:33] LABS: CK-MB VALUE MASS < 1.0 NG/ML (<3.6); CPK CREATINE PHOSPHOKINASE 59 U/L (26-192); MB/CK RELATIVE INDEX 1.69 (< OR =4); TROPONIN I < 0.02 NG/ML (< 0.10)
--- NOTE | 2021-03-15 21:58 | REPVR ---
PROCEDURE INFORMATION: Exam: XR Chest Exam date and time: 03/15/2021 9:06 PM Age: 89 years old Clinical indication: Other: CVA TECHNIQUE: Imaging protocol: XR of the chest. Views: 1 view. COMPARISON: CR Chest, 1 view 02/18/2021 10:46 PM FINDINGS: Tubes, catheters and devices: Single lead left subclavian cardiac pacer demonstrated. Lungs: Increased markings in the right mid to lower lung zone consistent with atelectasis or infiltrate, findings stable in comparison to the prior study. Pleural spaces: Blunting of the right costophrenic angle may indicate a small pleural effusion. Heart/Mediastinum: Unremarkable. No cardiomegaly. Bones/joints: Osteoporosis. IMPRESSION: Increased markings in the right mid to lower lung zone consistent with atelectasis or infiltrate, findings stable in comparison to the prior study. Electronically signed by: Girish Orourke On 03/15/2021 21:58:15 PM
[2021-03-15 22:00] LABS: DIGOXIN LEVEL 1.2 NG/ML (0.5-2.0); VALPROIC ACID (DEPAKOTE) 45.1 UG/ML (50.0-100.0)
[2021-03-15] MEDS ORDERED: NS 1,000 ML IV ONE (22:30)
[2021-03-15] MEDS ORDERED: LevoFLOXacin IV 750 MG in IV 1 EA IV ONE (23:00)
--- NOTE | 2021-03-15 23:41 | IPNPDOC ---
Text Note Date of Service The patient was seen on 03/15/21. NOTE TIME OF SERVICE 11.... VS,Jeremybone, I+O VS, Jeremybone, I+O Laboratory Tests 03/15/21 20:26 Vital Signs Date Time Temp Pulse Resp B/P (MAP) Pulse Ox O2 Delivery O2 Flow Rate FiO2 03/15/21 23:20 79 16 85/49 (61) 97 Room Air 03/15/21 20:24 98.5 HOMERO MAYORGA MD Mar 15, 2021 23:40
[2021-03-15] MEDS ORDERED: NOREPINEPHRINE BITARTRATE 8 MG in D5W 492 ML IV SCH (23:45)
--- NOTE | 2021-03-15 23:54 | HPEPDOC ---
[facility] Medical History & Physical Date of Admission Mar 15, 2021 Date of Service: Mar 15, 2021 Primary Care Physician: Katie Guadalupe N.P. Other Provider Dr. Cano, neurology; Dr. Torres, cardiology; Dr. Bond, medical oncology ([facility]); [facility] Attending Physician: HOMERO MAYORGA MD History and Physical CHIEF COMPLAINT: confusion and weakness HISTORY OF PRESENT ILLNESS: is an 89yo female w/ notable PMHx of advanced dementia, afib on eliquis w/ PM, hypothyroidism, RLL lung ca in remission s/p radiation & lobectomy, left breast ca s/p radiation & lumpectomy, recurrent UTIs, and OA who presented to the [facility] ED on 03/15/21 due to weakness, change in disposition/increased confusion. Virtually all of the history was obtained from patient's daughter (Camille) due to the patient's advanced dementia. Over the past 24 hours, the patient had a noticeable cough and appeared more weak. Around 4 PM this evening, she was not eating and was a bit more confused from her baseline. Around 7 PM, she had become somewhat irritable and was also struggling to ambulate; it was at this point that her daughter decided she should come to the emergency department for evaluation. Upon arrival in the ED, patient was hypotensive with maps in the low 60s. Imaging showed increased markings in the right mid to lower lobes consistent with infiltrate or atelectasis. Respiratory viral panel was positive for RSV. Interestingly, the patient did not have leukocytosis and had an unremarkable lactic acid level. Due to the hypotension, patient received 30 cc per cake NS bolus with transient improvement in maps to upper 60s to low 70s. Her maps then consistently stayed in the mid to lower 60s and a triple-lumen catheter was placed in the right femoral vein, with subsequent initiation of norepinephrine vasopressor. Patient was also given a dose of IV levofloxacin. REVIEW OF SYSTEMS: All review of systems questions were asked of the patient's daughter in the setting of patient's advanced dementia CONSTITUTIONAL: Reports increased generalized weakness over the past 12 to 24 hours with change in disposition this evening with some increased confusion from baseline. Denies recent fever, chills, night sweats, unintentional change in weight HEENT: Denies eye pain, vision changes, ear pain, dysphagia, or odynophagia CARDIOVASCULAR: Denies chest pain or palpitations RESPIRATORY: Reports cough. Denies shortness of breath GASTROINTESTINAL: Reports chronic nonbloody diarrhea that is unchanged from baseline. Denies abdominal pain, nausea, or vomiting GENITOURINARY: Denies hematuria or dysuria MUSCULOSKELETAL: Reports increased weakness over the past 12 to 24 hours NEUROLOGICAL: Reports irritability and increased confusion from her dementia baseline, as well as increased difficulty with ambulation and weakness. PSYCHIATRIC: Reports irritability this evening. HEMATOLOGIC: Reports chronic easy bruising (is on Eliquis) that is unchanged from baseline PAST MEDICAL/SURGICAL HISTORY: Advanced dementia with debility requiring use of walker; needs help with meals and bathing Atrial fibrillation on Eliquis, s/p pacemaker implantation (PM interrogated recently and in good working order) Hypothyroidism Right lung cancer in remission, s/p lobectomy and radiation Left breast cancer in remission, s/p lumpectomy and radiation (25 treatments) Osteoarthritis Recurrent urinary tract infections Pacemaker implantation Left total knee arthroplasty, 2003 Left breast lumpectomy, 1996 Right lung lobectomy, 2010 (done by Dr. Goldberg) Cholecystectomy SOCIAL HISTORY: Patient is a and lives alone. 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 Patient has never used any tobacco products Patient would occasionally drink alcohol but stopped when she began taking Depakote No current or former use of illegal drugs. FAMILY HISTORY: Brother: Dementia Sister: Dementia, diabetes Sister: Diabetes Daughter: Hypertension Daughter: Hypothyroidism Son: Hypertension ALLERGIES:Please see below. HOME MEDICATIONS:Please see below. PHYSICAL EXAMINATION: VITAL SIGNS: Temperature 98.5, pulse 80, respiratory rate 16, blood pressure 77/50, pulse oximetry 97% on room air. GENERAL APPEARANCE: Pleasantly demented elderly female lying flat in ED bed. Oriented to self only. Does not appear to be in any acute distress. HEENT: Normocephalic, atraumatic. Noninjected, anicteric sclera. While pupils are constricted they are equal round and reactive to light and accommodation. Oral cavity: Upper and lower dentures in place. MMM. No pharyngeal erythema or exudate appreciated. Neck: No lymphadenopathy appreciated. Trachea midline. Chest: There is a pacemaker in place in the left upper chest. CARDIOVASCULAR: Controlled rate with irregularly irregular rhythm. Normal S1 with somewhat more prominent S2. No distinct murmurs or rubs are appreciated. LUNGS: There is diffuse rhonchi bilaterally most prominent in the middle to lower lobes posteriorly. There is also some bilateral posterior inspiratory crackles. No wheezes are appreciated. Symmetric chest expansion. Breathing room air. ABDOMEN: Soft, nontender nondistended. Normoactive bowel sounds throughout. No guarding or rigidity appreciated. No palpable masses appreciated. MUSCULOSKELETAL: 5/5 muscle strength testing of upper and lower extremities bilaterally EXTREMITIES: There is a TLC present in the proximal right medial thigh/inguinal region. Bilateral lower extremities are thin and free of pitting edema. Bilateral hands show arthritic changes that involve DIP joints. NEUROLOGICAL: The patient is alert. She is oriented to self only. She appears pleasantly demented and is able to follow commands. Nondysarthric speech. PSYCHIATRIC: Pleasant mood. Appropriate appearing affect. LABORATORY DATA:Please see below. IMAGING:Portable chest x-ray, 03/15/2021- FINDINGS: Tubes, catheters and devices: Single lead left subclavian cardiac pacer demonstrated. Lungs: Increased markings in the right mid to lower lung zone consistent with atelectasis or infiltrate, findings stable in comparison to the prior study. Pleural spaces: Blunting of the right costophrenic angle may indicate a small pleural effusion. Heart/Mediastinum: Unremarkable. No cardiomegaly. Bones/joints: Osteoporosis. IMPRESSION: Increased markings in the right mid to lower lung zone consistent with atelectasis or infiltrate, findings stable in comparison to the prior study. Head CT without contrast, 03/15/2021FINDINGS: Brain: There are moderate periventricular and subcortical lucencies consistent with chronic microvascular ischemic changes. The choudhary-white differentiation is maintained. No hemorrhage. No edema. Cerebral ventricles: No ventriculomegaly. Paranasal sinuses: Visualized sinuses are unremarkable. No fluid levels. Mastoid air cells: Visualized mastoid air cells are well aerated. Bones/joints: Unremarkable. No acute fracture. Soft tissues: Unremarkable. IMPRESSION: No acute intracranial abnormality.Chronic microvascular ischemic changes. ASSESSMENT: ASPECTS (Kristen Stroke Program Early CT Score) is 10. MICROBIOLOGY:+ RSV / blood cx pending ASSESSMENT & PLAN: This is an 89yo female with notable h/o dementia and debility requiring walker for ambulation, A. fib on Eliquis with pacemaker, lung cancer and breast cancer in remission, recurrent UTIs, and hypothyroidism who was brought to the ED on 03/15 due to increased confusion and weakness from baseline with irritability, cough, and decreased oral intake. Found to be RSV positive with possible right middle lobe infiltrate and hypotension with inadequate response to fluid hydration; TLC placed and started on Levophed. Admitted to ICU primarily for shock requiring vasopressor support with RSV viral pneumonia & possible concurrent bacterial pna. #Shock - likely 2/2 RSV infection/RSV pneumonia with possible concurrent bacterial pneumonia -Patient displayed weakness and increased confusion from baseline -Chest x-ray showed increased markings in right middle to lower lung c/w infiltrate or atelectasis -Respiratory viral panel positive for RSV -Hypotensive with inadequate response to sepsis bolus resuscitation; (femoral) central line placed, Levophed initiated, one dose of IV Levaquin administered (patient has allergies to penicillins and sulfa) -Interestingly, patient was afebrile with no leukocytosis, not tachypneic, not tachycardic, or elevated lactate; there is a potential that due to advanced age, her immune response may be somewhat blunted -UA was unremarkable; blood cultures obtained; sputum culture ordered -Curb-65 score of 3 correlating with possible ICU admission -Due to hospital admission last month, there is a risk for MRSA associated pneumonia -MRSA PCR ordered and Vanco initiated -Should MRSA screen be negative, discontinue vancomycin #Right middle to lower lung atelectasis versus infiltrate -Levaquin q48h dosing continued -There is a concern for possible aspiration pneumonia with right middle lobe involved i/s/o patient's advanced dementia -Due to possible aspiration pneumonia, dose of IV metronidazole ordered to cover for anaerobes -Procalcitonin ordered -Aspiration precautions -Incentive spirometry #Macrocytic normochromic anemia -Iron panel, B12 and folate ordered #Advanced dementia -Home memantine and donepezil continued -On speaking with patient's daughter, patient is prescribed Depakote to help with dementia effects by her neurologist; patient does not have any known seizure disorder -Assisted ambulation only with fall risk precautions -Aspiration precautions #Longstanding persistent atrial fibrillation on Eliquis s/p pacemaker -Home eliquis and digoxin continued; dig level WNL on admission -Telemetry #Hypothyroidism -Home levothyroxine continued; TSH and free T4 ordered #DVT prophylaxis: Home Eliquis was continued CODE STATUS: DNR/DNI (has a signed MOLST form from 10/06/2020) Disposition: Admitted to ICU due to shock requiring vasopressor support; anticipate at least 2 midnight stay; pending clinical improvement Laboratory Data CBC/BMP Laboratory Tests 03/15/21 20:26 Home Medications Scheduled Apixaban (Eliquis) 2.5 Mg Tab, 2.5 MG PO BID Digoxin (Digoxin) 125 Mcg Tab, 125 MCG PO DAILY Divalproex Sodium (Depakote Sprinkle) 125 Mg Cap., 125 MG PO QAM Divalproex Sodium (Divalproex Sodium) 125 Mg Cap., 250 MG PO QHS Donepezil HCl (Donepezil HCl) 10 Mg Tablet, 10 MG PO QHS Ergocalciferol (Vitamin D2) (Vitamin D2) 50,000 Units Cap, 50,000 UNITS PO QWEEK SUNDAYS Folic Acid/Multivit-Min/Lutein (Multi-Vitamin Gummies) 1 Each Tab.chew, 2 CHW PO QHS Levothyroxine Sodium (Synthroid) 50 Mcg Tablet, 50 MCG PO DAILY Memantine HCl (Memantine HCl) 5 Mg Tablet, 5 MG PO QHS Potassium Chloride (Potassium Chloride) 20 Meq/15 Ml Liquid, 15 ML PO QHS dilute in half glass of water/juice Scheduled PRN Acetaminophen (Tylenol) 325 Mg Tablet, 650 MG PO Q4H PRN for MILD PAIN or TEMP > 101 Carboxymethylcellulose Sodium (Refresh Tears) 15 Ml Drops, 1 DROP OU QID PRN for DRY EYES Cetirizine HCl (Cetirizine HCl) 10 Mg Tablet, 10 MG PO DAILY PRN for ALLERGY SYMPTOMS Loperamide HCl (Loperamide) 2 Mg Capsule, 2 MG PO Q6H PRN for AFTER EACH LOOSE STOOL Allergies Coded Allergies: ampicillin (Verified Allergy, Mild, rash, 02/18/21) Penicillins (Verified Allergy, Unknown, rash, 03/23/20) Sulfa (Sulfonamide Antibiotics) (Verified Allergy, Unknown, rash, 03/23/20) latex (Verified Allergy, Unknown, rash, 03/23/20) GME ATTESTATION GME ATTESTATION My faculty preceptor for this patient encounter was physically present during the encounter and was fully available. All aspects of the patient interview, examination, medical decision making process, and medical care plan development were reviewed and approved by the faculty preceptor. The faculty preceptor is aware and concurs with the plan as stated in the body of this note and will at test to such by his/her cosignature. 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 Mar 15, 2021 23:54 HOMERO MAYORGA MD Mar 16, 2021 03:11
[2021-03-16] MEDS ORDERED: FURO20TA2 PO (00:33)
[2021-03-16] MEDS ORDERED: ACET-907 PO (00:33)
[2021-03-16] MEDS ORDERED: REFR0.5D8 OU (00:33)
[2021-03-16] MEDS ORDERED: ERGO500029 PO (00:33)
[2021-03-16] MEDS ORDERED: LOPE1CAP5 PO (00:33)
[2021-03-16] MEDS ORDERED: HOME MED LIST COMPLETE! XX SCH (00:45)
[2021-03-16] MEDS ORDERED: LOPERAMIDE 2 MG CAPLET PO PRN (01:10)
[2021-03-16] MEDS ORDERED: NOREPINEPHRINE BITARTRATE 8 MG in D5W 492 ML IV SCH ×3 (01:15→13:00)
[2021-03-16] MEDS ORDERED: NS 1,000 ML IV SCH (01:15)
[2021-03-16] MEDS ORDERED: ACETAMINOPHEN TAB 650MG DOSE (2X325MG) PO PRN (01:20)
[2021-03-16] MEDS ORDERED: MAALOX 30 ML SUSP *UDC PO PRN (01:20)
[2021-03-16] MEDS: POTASSIUM CHLORIDE 10% LIQ 20 MEQ/15 ML UDC PO SCH ×2 (01:54→22:13)
[2021-03-16] MEDS: APIXABAN 2.5 MG TAB (ELIQUIS) PO SCH ×3 (01:54→22:13)
[2021-03-16] MEDS ORDERED: VANCOMYCIN HCL 1,000 MG in IV FLUID PLACE HOLDER 1 EA IV SCH (01:55)
[2021-03-16 02:06] LABS: FERRITIN 190 NG/ML (8-252); IRON (FE) 16 UG/DL (50-170); PERCENT SATURATION 6.9 % (13.2-45.0); TOTAL IRON BINDING CAPACITY 232 UG/DL (250-450)
[2021-03-16] MEDS: DIVALPROEX SPRINKLE 125 MG CAP PO SCH ×3 (02:24→22:14)
[2021-03-16] MEDS ORDERED: VANCOMYCIN HCL 1,000 MG, VIAL MATE ADAPTER 1 EACH in NS 250 ML IV ONE (02:25)
[2021-03-16] MEDS: MEMANTINE 5MG TABLET (NAMENDA) PO SCH ×2 (02:25→22:13)
--- NOTE | 2021-03-16 05:47 | ECGEPIP ---
[facility] - ED Test Date: 2021-03-15 Pat Name: FLORES REED Department: Room: - Gender: Female Block Handler: abigail : [id number] Requested By: HANNY Huynh Order Number: [id number] Reading MD: Ankur Hernández Measurements Intervals [place] Rate: 78 P: ND: QRS: -12 QRSD: 84 T: 236 QT: 396 QTc: 451 Interpretive Statements Atrial fibrillation with occasional ventricular-paced complexes Low voltage QRS Nonspecific T wave abnormality SIMILAR TO 02/18/21 Electronically Signed on 03-16-2021 5:47:00 EDT by Ankur Hernández
[2021-03-16] MEDS: LEVOTHYROXINE 50MCG TABLET (0.05MG) PO SCH (06:05)
[2021-03-16] MEDS ORDERED: metroNIDAZOLE 500 MG in IV 1 EA IV ONE (06:20)
[2021-03-16 07:04] LABS: BASO % 0.2 % (0.0-1.0); EOS % 0.5 % (0.0-3.0); HEMATOCRIT 30.3 % (36.0-47.0); HEMOGLOBIN 10.1 g/dl (12.0-15.5); LYMPH # 1.2 10^3/uL (1.5-5.0); LYMPH % 19.1 % (24.0-44.0); MEAN CORPUSCULAR HEMOGLOBIN 33.2 pg (27.0-33.0); MEAN CORPUSCULAR HGB CONC 33.3 g/dl (32.0-36.5); MEAN CORPUSCULAR VOLUME 99.7 fl (80.0-96.0); MONO # 1.1 10^3/uL (0.0-0.8); MONO % 16.3 % (2.0-8.0); NEUTROPHILS # 4.1 10^3/uL (1.5-8.5); NEUTROPHILS % 63.4 % (36.0-66.0); PLATELET COUNT, AUTOMATED 140 10^3/uL (150-450); RED BLOOD COUNT 3.04 10^6/uL (4.00-5.40); WHITE BLOOD COUNT 6.4 10^3/uL (4.0-10.0)
[2021-03-16 07:37] LABS: ALBUMIN 2.2 GM/DL (3.2-5.2); ALT/SGPT 13 U/L (12-78); BILIRUBIN,TOTAL 0.8 MG/DL (0.2-1.0); BLOOD UREA NITROGEN 11 MG/DL (7-18); CALCIUM LEVEL 7.7 MG/DL (8.8-10.2); CARBON DIOXIDE LEVEL 26 MEQ/L (21-32); CHLORIDE LEVEL 108 MEQ/L (98-107); CREATININE FOR GFR 0.72 MG/DL (0.55-1.30); GLOMERULAR FILTRATION RATE > 60.0 (>32); GLUCOSE, FASTING 106 MG/DL (70-100); MAGNESIUM LEVEL 1.3 MG/DL (1.8-2.4); POTASSIUM SERUM 4.1 MEQ/L (3.5-5.1); SODIUM LEVEL 139 MEQ/L (136-145); TOTAL PROTEIN 5.1 GM/DL (6.4-8.2)
[2021-03-16 08:57] LABS: FOLATE 23.6 NG/ML (>5.4)
[2021-03-16] MEDS: DIGOXIN 0.125 MG TAB PO SCH (11:05)
--- NOTE | 2021-03-16 16:50 | IPNPDOC ---
Text Note Date of Service The patient was seen on 03/16/21. NOTE Subjective: Patient was alert and awake in the morning. Her blood pressure was stable Objective: GENERAL APPEARANCE: NAD HEENT: no scleral icterus, no JVD, EOMI CARDIOVASCULAR: Irregularly irregular, pacemaker in place LUNGS: Diminished lung sounds bilaterally ABDOMEN: soft & not tender w palpation MUSCULOSKELETAL: no cyanosis, no swelling INTEGUMENT: no generalized pallor NEUROLOGICAL: cranial nerve function from 2-12 intact, follows commands, speech not dysarthric Assessment and plan 89yo female with notable h/o dementia and debility requiring walker for ambulation, A. fib on Eliquis with pacemaker, lung cancer and breast cancer in remission, recurrent UTIs, and hypothyroidism who was brought to the ED on 03/15 due to increased confusion and weakness from baseline with irritability, cough, and decreased oral intake. Found to be RSV positive. Hypotension/vasogenic shock Secondary to viral infection RSV Blood pressure was stabilized with IV fluid and Levophed drip Femoral line was removed, and Levophed was stopped. Blood pressure stable Pending blood culture Procalcitonin negative, patient afebrile, does not have leukocytosis, patient does not have cough or sputum production. I stopped levofloxacin RSV infection Continue supportive treatment with IV fluid -Aspiration precautions -Incentive spirometry Normocytic anemia Hemoglobin stable B12 and folate within normal limit Work-up with PCP in the outpatient setting Atrial fibrillation Heart rate under control Home eliquis and digoxin continued Hypothyroidism Continue levothyroxine DVT prophylaxis with Eliquis VS,Fishbone, I+O VS, Fishbone, I+O Laboratory Tests 03/15/21 20:26 03/16/21 06:47 Vital Signs Date Time Temp Pulse Resp B/P (MAP) Pulse Ox O2 Delivery O2 Flow Rate FiO2 03/16/21 15:45 89 131/82 (98) 89 03/16/21 10:40 98.4 03/16/21 09:00 20 03/16/21 00:45 Room Air I&O- Last 24 Hours up to 6 AM 03/16/21 06:00 Intake Total 2009 ml Balance 2009 ml YOKASTA WATERMAN DO Mar 16, 2021 16:50
[2021-03-16 18:41] LABS: FREE T4 1.08 NG/DL (0.76-1.46); PREALBUMIN 13.6 MG/DL (20.0-40.0)
[2021-03-16] MEDS: DONEPEZIL 5 MG TAB PO SCH (22:12)
[2021-03-17 01:00] VITALS: BP 121/74
[2021-03-17 06:00] VITALS: BP 123/60
[2021-03-17] MEDS ORDERED: VANCOMYCIN HCL 500 MG in D5W MINI-BAG PLUS 100 ML IV SCH (06:00)
[2021-03-17] MEDS: LEVOTHYROXINE 50MCG TABLET (0.05MG) PO SCH ×2 (06:14→06:50)
[2021-03-17 08:12] LABS: BASO % 0.4 % (0.0-1.0); EOS # 0.1 10^3/uL (0.0-0.5); EOS % 1.2 % (0.0-3.0); HEMATOCRIT 28.1 % (36.0-47.0); HEMOGLOBIN 9.5 g/dl (12.0-15.5); LYMPH # 1.7 10^3/uL (1.5-5.0); LYMPH % 29.3 % (24.0-44.0); MEAN CORPUSCULAR HEMOGLOBIN 33.2 pg (27.0-33.0); MEAN CORPUSCULAR HGB CONC 33.8 g/dl (32.0-36.5); MEAN CORPUSCULAR VOLUME 98.3 fl (80.0-96.0); MONO # 1.1 10^3/uL (0.0-0.8); MONO % 20.1 % (2.0-8.0); NEUTROPHILS # 2.8 10^3/uL (1.5-8.5); NEUTROPHILS % 48.6 % (36.0-66.0); PLATELET COUNT, AUTOMATED 108 10^3/uL (150-450); RED BLOOD COUNT 2.86 10^6/uL (4.00-5.40); WHITE BLOOD COUNT 5.7 10^3/uL (4.0-10.0)
[2021-03-17 08:37] LABS: ALT/SGPT 12 U/L (12-78); BILIRUBIN,TOTAL 0.7 MG/DL (0.2-1.0); BLOOD UREA NITROGEN 10 MG/DL (7-18); CALCIUM LEVEL 8.1 MG/DL (8.8-10.2); CARBON DIOXIDE LEVEL 28 MEQ/L (21-32); CHLORIDE LEVEL 106 MEQ/L (98-107); GLOMERULAR FILTRATION RATE > 60.0 (>32); GLUCOSE, FASTING 95 MG/DL (70-100); MAGNESIUM LEVEL 1.4 MG/DL (1.8-2.4); POTASSIUM SERUM 3.5 MEQ/L (3.5-5.1); SODIUM LEVEL 139 MEQ/L (136-145); TOTAL PROTEIN 4.9 GM/DL (6.4-8.2)
[2021-03-17] MEDS: APIXABAN 2.5 MG TAB (ELIQUIS) PO SCH (09:49)
[2021-03-17] MEDS: DIVALPROEX SPRINKLE 125 MG CAP PO SCH (09:49)
[2021-03-17] MEDS: DIGOXIN 0.125 MG TAB PO SCH (09:51)
[2021-03-17] MEDS ORDERED: MAGNESIUM OXIDE 400MG TAB (MAG-OX) PO ONE (10:55)
[2021-03-17] MEDS ORDERED: POTASSIUM CHLORIDE 10MEQ SR TABLET PO ONE (10:55)
--- NOTE | 2021-03-17 15:27 | DS.PDOC ---
Discharge Summary General Date of Admission Mar 15, 2021 at 23:30 Date of Discharge 03/17/21 Discharge Summary PROCEDURES PERFORMED DURING STAY: [None]. ADMITTING DIAGNOSES: Hypotension/vasogenic shock RSV infection Normocytic anemia Atrial fibrillation Hypothyroidism DISCHARGE DIAGNOSES: Hypotension/vasogenic shock RSV infection Normocytic anemia Atrial fibrillation Hypothyroidism COMPLICATIONS/CHIEF COMPLAINT: Pneumonua, Rsv Infection, Sepsis. HISTORY OF PRESENT ILLNESS: Alejandra is an 89yo female w/ notable PMHx of advanced dementia, afib on eliquis w/ PM, hypothyroidism, RLL lung ca in remission s/p radiation & lobectomy, left breast ca s/p radiation & lumpectomy, recurrent UTIs, and OA who presented to the [facility] ED on 03/15/21 due to weakness, change in disposition/increased confusion. Virtually all of the history was obtained from patient's daughter (Camille) due to the patient's advanced dementia. Over the past 24 hours, the patient had a noticeable cough and appeared more weak. Around 4 PM this evening, she was not eating and was a bit more confused from her baseline. Around 7 PM, she had become somewhat irritable and was also struggling to ambulate; it was at this point that her daughter decided she should come to the emergency department for evaluation. Upon arrival in the ED, patient was hypotensive with maps in the low 60s. Imaging showed increased markings in the right mid to lower lobes consistent with infiltrate or atelectasis. Respiratory viral panel was positive for RSV. Interestingly, the patient did not have leukocytosis and had an unremarkable lactic acid level. Due to the hypotension, patient received 30 cc per cake NS bolus with transient improvement in maps to upper 60s to low 70s. Her maps then consistently stayed in the mid to lower 60s and a triple-lumen catheter was placed in the right femoral vein, with subsequent initiation of norepinephrine vasopressor. Patient was also given a dose of IV levofloxacin. HOSPITAL COURSE: During the hospital stay the following issue addressed Hypotension/vasogenic shock Secondary to viral infection RSV Blood pressure was stabilized with IV fluid and Levophed drip Femoral line was removed, and Levophed was stopped. Blood pressure stable today blood culture negative Procalcitonin negative, patient afebrile, does not have leukocytosis, patient does not have cough or sputum production. I stopped levofloxacin RSV infection Patient received supportive treatment with IV fluid -Aspiration precautions -Incentive spirometry Normocytic anemia Hemoglobin stable B12 and folate within normal limit Work-up with PCP in the outpatient setting Atrial fibrillation Heart rate under control Home eliquis and digoxin continued Hypothyroidism Continue levothyroxine DISCHARGE MEDICATIONS: Please see below. ALLERGIES: Please see below. PHYSICAL EXAMINATION ON DISCHARGE: VITAL SIGNS: Please see below. GENERAL APPEARANCE: NAD HEENT: no scleral icterus, no JVD, EOMI CARDIOVASCULAR: Irregularly irregular, pacemaker in place LUNGS: Diminished lung sounds bilaterally ABDOMEN: soft & not tender w palpation MUSCULOSKELETAL: no cyanosis, no swelling INTEGUMENT: no generalized pallor NEUROLOGICAL: cranial nerve function from 2-12 intact, follows commands, speech not dysarthric LABORATORY DATA: Please see below. PROGNOSIS: Fair ACTIVITY: [As tolerated]. DIET: Regular DISPOSITION: Home Health Service. ITEMS TO FOLLOWUP ON ON OUTPATIENT: With PCP DISCHARGE CONDITION: [Stable]. TIME SPENT ON DISCHARGE: 40minutes. Vital Signs/I&Os Vital Signs Date Time Temp Pulse Resp B/P (MAP) Pulse Ox O2 Delivery O2 Flow Rate FiO2 03/17/21 09:51 77 03/17/21 06:00 97.9 18 123/60 (81) 99 Room Air Laboratory Data Labs 24H Laboratory Tests 2 03/17/21 07:29: Immature Granulocyte % (Auto) 0.4, Neutrophils (%) (Auto) 48.6, Lymphocytes (%) (Auto) 29.3, Monocytes (%) (Auto) 20.1H, Eosinophils (%) (Auto) 1.2, Basophils (%) (Auto) 0.4, Neutrophils # (Auto) 2.8, Lymphocytes # (Auto) 1.7, Monocytes # (Auto) 1.1H, Eosinophils # (Auto) 0.1, Basophils # (Auto) 0.0, Nucleated Red Blood Cells % (auto) 0.0, Anion Gap 5L, Glomerular Filtration Rate > 60.0, Calcium Level 8.1L, Magnesium Level 1.4L, Total Bilirubin 0.7, Aspartate Amino Transf (AST/SGOT) 16, Alanine Aminotransferase (ALT/SGPT) 12, Alkaline Phosphatase 49, Total Protein 4.9L, Albumin 2.0L, Albumin/Globulin Ratio 0.7L CBC/BMP Laboratory Tests 03/17/21 07:29 Microbiology Microbiology 03/15/21 Blood Culture - Preliminary, Resulted No growth after 24 hours . All specim... 03/15/21 Blood Culture - Preliminary, Resulted No growth after 24 hours . All specim... 03/15/21 Respiratory Virus Panel (PCR) ([facility]) - Final, Complete Respiratory Syncytial Virus Discharge Medications Scheduled Apixaban (Eliquis) 2.5 Mg Tab, 2.5 MG PO BID, (Reported) Digoxin (Digoxin) 125 Mcg Tab, 125 MCG PO DAILY, (Reported) Divalproex Sodium (Depakote Sprinkle) 125 Mg Cap., 125 MG PO QAM, (Reported) Divalproex Sodium (Divalproex Sodium) 125 Mg Cap., 250 MG PO QHS, (Reported) Donepezil HCl (Donepezil HCl) 10 Mg Tablet, 10 MG PO QHS, (Reported) Ergocalciferol (Vitamin D2) (Vitamin D2) 50,000 Units Cap, 50,000 UNITS PO QWEEK, (Reported) SUNDAYS Folic Acid/Multivit-Min/Lutein (Multi-Vitamin Gummies) 1 Each Tab.chew, 2 CHW PO QHS, (Reported) Levothyroxine Sodium (Synthroid) 50 Mcg Tablet, 50 MCG PO DAILY, (Reported) Memantine HCl (Memantine HCl) 5 Mg Tablet, 5 MG PO QHS, (Reported) Potassium Chloride (Potassium Chloride) 20 Meq/15 Ml Liquid, 15 ML PO QHS, (Reported) dilute in half glass of water/juice Scheduled PRN Acetaminophen (Tylenol) 325 Mg Tablet, 650 MG PO Q4H PRN for MILD PAIN or TEMP > 101, (Reported) Carboxymethylcellulose Sodium (Refresh Tears) 15 Ml Drops, 1 DROP OU QID PRN for DRY EYES, (Reported) Cetirizine HCl (Cetirizine HCl) 10 Mg Tablet, 10 MG PO DAILY PRN for ALLERGY SYMPTOMS, (Reported) Loperamide HCl (Loperamide) 2 Mg Capsule, 2 MG PO Q6H PRN for AFTER EACH LOOSE STOOL, (Reported) Allergies Coded Allergies: ampicillin (Verified Allergy, Mild, rash, 02/18/21) Penicillins (Verified Allergy, Unknown, rash, 03/23/20) Sulfa (Sulfonamide Antibiotics) (Verified Allergy, Unknown, rash, 03/23/20) latex (Verified Allergy, Unknown, rash, 03/23/20) YOKASTA WATERMAN DO Mar 17, 2021 15:27
[2021-03-17] MEDS ORDERED: LevoFLOXacin IV 750 MG in IV 1 EA IV SCH (21:00)
== END 2021-03-17 12:41 | disposition home health service (06) | DRG 193 ==
LOC: M ED 20:14 → EDBD 20:14 → M ED INP 23:30 → ENRESERV 03-16 05:16 → M MSPAV 03-17 00:59
PROVIDERS: ADMIT Internal Medicine; ATTEND Internal Medicine
DX: J12.1 Respiratory syncytial virus pneumonia (principal); R57.8 Other shock; I48.11 Longstanding persistent atrial fibrillation; D64.9 Anemia, unspecified; F03.90 Unspecified dementia, unspecified severity, without behavioral disturbance, psychotic disturbance, mood disturbance, and anxiety; E03.9 Hypothyroidism, unspecified; Z79.01 Long term (current) use of anticoagulants; Z79.899 Other long term (current) drug therapy; Z66 Do not resuscitate; Z20.822 Contact with and (suspected) exposure to COVID-19; Z88.0 Allergy status to penicillin; Z88.1 Allergy status to other antibiotic agents; Z88.2 Allergy status to sulfonamides; Z91.040 Latex allergy status; Z95.0 Presence of cardiac pacemaker

== ENCOUNTER → 2021-08-20 | Outpatient (CLI) | payer MEDICARE, MEDICAID ==
[~2021-08-20] MED LIST changes: +ACET-907 PO; +DIVA125C6 PO; -DIVA1CAP PO; +DONE-1 PO; -DONETAB6 PO; +ERGO500029 PO; +FURO20TA2 PO; -LEVO250T12 PO; +LEVO250T3 PO; +LOPE1CAP5 PO; +REFR0.5D8 OU
[2021-08-20 12:44] LABS: HEMOGLOBIN 12.7 g/dl (12.0-15.5); MEAN CORPUSCULAR HGB CONC 32.6 g/dl (32.0-36.5); MEAN CORPUSCULAR VOLUME 101.3 fl (80.0-96.0); PLATELET COUNT, AUTOMATED 188 10^3/uL (150-450); RED BLOOD COUNT 3.85 10^6/uL (4.00-5.40); WHITE BLOOD COUNT 4.7 10^3/uL (4.0-10.0)
[2021-08-20 13:24] LABS: ALBUMIN 2.9 GM/DL (3.2-5.2); ALT/SGPT 14 U/L (12-78); BILIRUBIN,TOTAL 0.8 MG/DL (0.2-1.0); BLOOD UREA NITROGEN 21 MG/DL (7-18); CALCIUM LEVEL 8.8 MG/DL (8.8-10.2); CARBON DIOXIDE LEVEL 33 MEQ/L (21-32); CHLORIDE LEVEL 105 MEQ/L (98-107); CHOLESTEROL LEVEL 158 MG/DL (<200); CHOLESTEROL RISK RATIO 2.468 (<5); CREATININE FOR GFR 0.85 MG/DL (0.55-1.30); GLOMERULAR FILTRATION RATE > 60.0 (>32); GLUCOSE, FASTING 79 MG/DL (70-100); HDL CHOLESTEROL 64 MG/DL (>40); LDL CHOLESTEROL 79 MG/DL (<100); NON-HDL-C 94 MG/DL; POTASSIUM SERUM 4.6 MEQ/L (3.5-5.1); SODIUM LEVEL 140 MEQ/L (136-145); TOTAL 25(OH) VITAMIN D 45.9 NG/ML (30.0-100.0); TOTAL PROTEIN 6.2 GM/DL (6.4-8.2); TRIGLYCERIDES LEVEL 74 MG/DL (<150)
== END ==
LOC: M WUC 09:16
PROVIDERS: ATTEND Nurse Practitioner Family
DX: I10 Essential (primary) hypertension (principal); E78.5 Hyperlipidemia, unspecified; E03.9 Hypothyroidism, unspecified; E55.9 Vitamin D deficiency, unspecified

== ENCOUNTER → 2021-10-05 | Outpatient (CLI) | payer MEDICARE ==
[2021-10-05 09:01] LABS: BASO % 0.1 % (0.0-1.0); HEMATOCRIT 43.6 % (36.0-47.0); HEMOGLOBIN 14.5 g/dl (12.0-15.5); LYMPH # 0.8 10^3/uL (1.5-5.0); LYMPH % 10.2 % (24.0-44.0); MEAN CORPUSCULAR HEMOGLOBIN 33.5 pg (27.0-33.0); MEAN CORPUSCULAR HGB CONC 33.3 g/dl (32.0-36.5); MEAN CORPUSCULAR VOLUME 100.7 fl (80.0-96.0); MONO # 0.2 10^3/uL (0.0-0.8); MONO % 2.1 % (2.0-8.0); NEUTROPHILS # 6.9 10^3/uL (1.5-8.5); NEUTROPHILS % 86.8 % (36.0-66.0); PLATELET COUNT, AUTOMATED 218 10^3/uL (150-450); RED BLOOD COUNT 4.33 10^6/uL (4.00-5.40)
[2021-10-05 09:36] LABS: C REACTIVE PROTEIN QUANTITATIV 0.69 MG/DL (0.00-0.30); RHEUMATOID FACTOR QUANT 13.8 IU/ML (<15.0); URIC ACID 5.5 MG/DL (2.6-6.0)
[2021-10-05 09:43] LABS: ERYTHROCYTE SEDIMENTATION RATE 12 mm/hr (0-30)
== END ==
LOC: M RAD 07:54
PROVIDERS: ATTEND Physician Assistant
DX: M79.645 Pain in left finger(s) (principal)

== ENCOUNTER → 2021-10-08 | Outpatient (CLI) | payer MEDICARE | LOC: M PLAIMG 09:08 | PROVIDERS: ATTEND Physician Assistant | DX: M79.645 Pain in left finger(s) (principal); M79.89 Other specified soft tissue disorders; M25.742 Osteophyte, left hand ==

== ENCOUNTER → 2021-12-05 | Outpatient (REF) | payer MEDICARE ==
[~2021-12-05] MED LIST changes: +LEVO750T13 PO
== END ==
LOC: M LAB REF 19:54
PROVIDERS: ATTEND Student in an Organized Health Care Education/Training Program
DX: R30.0 Dysuria (principal)

== ENCOUNTER 2021-12-06 10:53 | Inpatient (IN) | payer MEDICARE ==
[~2021-12-06] VITALS: Ht 157.5 cm; Wt 45.2 kg
[2021-12-06] MEDS: LEVOTHYROXINE 75MCG TABLET (0.075MG) PO SCH (06:00)
[2021-12-06] MEDS: CETIRIZINE (ZyrTEC) 10 MG TAB PO SCH (09:00)
[2021-12-06] MEDS: DIGOXIN 0.125 MG TAB PO SCH (09:00)
[~2021-12-06 10:53] MED LIST changes: -LEVO750T13 PO
[2021-12-06] MEDS ORDERED: LevoFLOXacin IV 750 MG in IV 1 EA IV ONE (11:25)
[2021-12-06 11:51] LABS: VENOUS BASE EXCESS 1.7 (-2.0-2.0); VENOUS HCO3 27.7 MEQ/L (23.0-27.0); VENOUS O2 SATURATION 59.4 % (60.0-80.0); VENOUS PARTIAL PRESSURE CO2 48.6 mmHg (38.0-50.0); VENOUS PARTIAL PRESSURE O2 30.4 mmHg (30.0-50.0); VENOUS PH 7.374 UNITS (7.330-7.430); VENOUS TOTAL CO2 29.2 MEQ/L (24.0-28.0)
[2021-12-06 11:55] LABS: BASO % 0.2 % (0.0-1.0); EOS % 0.1 % (0.0-3.0); HEMATOCRIT 41.6 % (36.0-47.0); HEMOGLOBIN 13.8 g/dl (12.0-15.5); LYMPH # 0.2 10^3/uL (1.5-5.0); LYMPH % 1.7 % (24.0-44.0); MEAN CORPUSCULAR HEMOGLOBIN 32.6 pg (27.0-33.0); MEAN CORPUSCULAR HGB CONC 33.2 g/dl (32.0-36.5); MEAN CORPUSCULAR VOLUME 98.3 fl (80.0-96.0); MONO # 0.7 10^3/uL (0.0-0.8); MONO % 5.2 % (2.0-8.0); NEUTROPHILS # 12.4 10^3/uL (1.5-8.5); NEUTROPHILS % 92.1 % (36.0-66.0); PLATELET COUNT, AUTOMATED 202 10^3/uL (150-450); RED BLOOD COUNT 4.23 10^6/uL (4.00-5.40); WHITE BLOOD COUNT 13.5 10^3/uL (4.0-10.0)
[2021-12-06 12:29] LABS: RSV AMPLIFICATION NEGATIVE (NEGATIVE)
[2021-12-06 12:43] LABS: INR 1.19; PROTHROMBIN TIME 15.5 SECONDS (12.7-14.5)
[2021-12-06] MEDS ORDERED: NITR100C2 PO (12:59)
[2021-12-06] MEDS ORDERED: LEVO75TA4 PO (12:59)
[2021-12-06] MEDS ORDERED: HOME MED LIST COMPLETE! XX SCH (13:05)
[2021-12-06 13:40] LABS: APPEARANCE, URINE HAZY (CLEAR); BACTERIA, URINE AUTO 1+ (NEGATIVE); BILIRUBIN, URINE AUTO NEGATIVE (NEGATIVE); BLOOD, URINE BLOOD NEGATIVE (NEGATIVE); COLOR, URINE YELLOW (YELLOW); GLUCOSE, URINE (UA) AUTO NEGATIVE (NEGATIVE); KETONE, URINE AUTO 1+ mg/dL (NEGATIVE); LEUKOCYTE ESTERASE, URINE AUTO 2+ (NEGATIVE); MUCUS, URINE SMALL (NEGATIVE); NITRITE, URINE AUTO NEGATIVE (NEGATIVE); PROTEIN, URINE AUTO NEGATIVE (NEGATIVE); RBC, URINE AUTO 5 /HPF (0-3); SPECIFIC GRAVITY URINE AUTO 1.012 (1.002-1.035); SQUAMOUS EPITHELIAL CELL UR AU 0 /HPF (0-6); TRANSITIONAL EPITHELIAL AUTO 2 /HPF; UROBILINOGEN, URINE AUTO 0.2 mg/dL (0.0-2.0); WBC, URINE AUTO 55 /HPF (0-3)
[2021-12-06 14:05] LABS: ALBUMIN 2.8 GM/DL (3.2-5.2); ALT/SGPT 13 U/L (12-78); BILIRUBIN,DIRECT 0.3 MG/DL (0.0-0.2); BILIRUBIN,TOTAL 0.8 MG/DL (0.2-1.0); BLOOD UREA NITROGEN 18 MG/DL (7-18); CALCIUM LEVEL 8.7 MG/DL (8.8-10.2); CARBON DIOXIDE LEVEL 29 MEQ/L (21-32); CHLORIDE LEVEL 104 MEQ/L (98-107); CREATININE FOR GFR 0.88 MG/DL (0.55-1.30); DIGOXIN LEVEL 1.5 NG/ML (0.5-2.0); GLOMERULAR FILTRATION RATE > 60.0 (>32); GLUCOSE, FASTING 174 MG/DL (70-100); POTASSIUM SERUM 4.4 MEQ/L (3.5-5.1); SODIUM LEVEL 139 MEQ/L (136-145); TOTAL PROTEIN 5.9 GM/DL (6.4-8.2)
[2021-12-06] MEDS ORDERED: NS 1,370 ML in IV 1 EA IV ONE (14:10)
[2021-12-06] MEDS ORDERED: MOM 30ML SUSPENSION UDC PO PRN (14:55)
[2021-12-06] MEDS ORDERED: ACETAMINOPHEN TAB 650MG DOSE (2X325MG) PO PRN (14:55)
[2021-12-06] MEDS ORDERED: MAALOX 30 ML SUSP *UDC PO PRN (14:55)
[2021-12-06] MEDS: NS 1,000 ML IV SCH ×2 (16:19→23:38)
[2021-12-06 18:47] VITALS: BP 121/65
[2021-12-06 20:01] VITALS: BP 111/70
[2021-12-06] MEDS ORDERED: DIVALPROEX SPRINKLE 125 MG CAP PO SCH (21:00)
[2021-12-06] MEDS ORDERED: DONEPEZIL 5 MG TAB PO SCH (21:00)
[2021-12-06] MEDS ORDERED: MEMANTINE 5MG TABLET (NAMENDA) PO SCH (21:00)
[2021-12-06] MEDS: DOCUSATE SODIUM 100MG CAPSULE PO SCH (21:10)
[2021-12-06] MEDS: APIXABAN 2.5 MG TAB (ELIQUIS) PO SCH (21:11)
[2021-12-06 23:56] VITALS: BP 115/59
[2021-12-07 04:17] VITALS: BP 108/54
[2021-12-07 05:14] LABS: BASO % 0.4 % (0.0-1.0); EOS # 0.4 10^3/uL (0.0-0.5); EOS % 5.6 % (0.0-3.0); HEMATOCRIT 29.8 % (36.0-47.0); LYMPH # 0.7 10^3/uL (1.5-5.0); LYMPH % 10.2 % (24.0-44.0); MEAN CORPUSCULAR HEMOGLOBIN 33.2 pg (27.0-33.0); MEAN CORPUSCULAR HGB CONC 33.9 g/dl (32.0-36.5); MONO # 0.9 10^3/uL (0.0-0.8); MONO % 12.4 % (2.0-8.0); NEUTROPHILS # 4.9 10^3/uL (1.5-8.5); NEUTROPHILS % 70.7 % (36.0-66.0); PLATELET COUNT, AUTOMATED 131 10^3/uL (150-450); RED BLOOD COUNT 3.04 10^6/uL (4.00-5.40)
[2021-12-07 05:36] LABS: BLOOD UREA NITROGEN 17 MG/DL (7-18); CALCIUM LEVEL 7.7 MG/DL (8.8-10.2); CARBON DIOXIDE LEVEL 25 MEQ/L (21-32); CHLORIDE LEVEL 112 MEQ/L (98-107); CREATININE FOR GFR 0.74 MG/DL (0.55-1.30); GLOMERULAR FILTRATION RATE > 60.0 (>32); GLUCOSE, FASTING 88 MG/DL (70-100); MAGNESIUM LEVEL 1.3 MG/DL (1.8-2.4); POTASSIUM SERUM 3.6 MEQ/L (3.5-5.1); SODIUM LEVEL 142 MEQ/L (136-145)
[2021-12-07 05:50] LABS: HEMOGLOBIN 10.1 g/dl (12.0-15.5)
[2021-12-07] MEDS: LEVOTHYROXINE 75MCG TABLET (0.075MG) PO SCH (06:47)
[2021-12-07 08:19] VITALS: BP 98/61
[2021-12-07] MEDS: APIXABAN 2.5 MG TAB (ELIQUIS) PO SCH (08:33)
[2021-12-07] MEDS: DOCUSATE SODIUM 100MG CAPSULE PO SCH (08:33)
[2021-12-07] MEDS: CETIRIZINE (ZyrTEC) 10 MG TAB PO SCH (08:33)
[2021-12-07] MEDS: DIGOXIN 0.125 MG TAB PO SCH (08:33)
[2021-12-07] MEDS: MAG SULF 1GM/100ML (MAG RUN) 1 GM in IV 1 EA IV SCH ×3 (08:34→11:54)
[2021-12-07] MEDS ORDERED: DIVALPROEX SPRINKLE 125 MG CAP PO SCH (09:00)
[2021-12-07] MEDS ORDERED: LEVO750T13 PO (09:31)
[2021-12-08] MEDS ORDERED: LevoFLOXacin IV 750 MG in IV 1 EA IV SCH (12:00)
== END 2021-12-07 14:37 | disposition home or self-care (01) | DRG 690 ==
LOC: EDBD 10:53 → M ED 10:53 → M ED INP 14:54 → M PCU 18:50
PROVIDERS: ADMIT Internal Medicine; ATTEND Internal Medicine
DX: N39.0 Urinary tract infection, site not specified (principal); F03.90 Unspecified dementia, unspecified severity, without behavioral disturbance, psychotic disturbance, mood disturbance, and anxiety; I48.91 Unspecified atrial fibrillation; Z79.01 Long term (current) use of anticoagulants; I49.5 Sick sinus syndrome; Z95.0 Presence of cardiac pacemaker; E03.9 Hypothyroidism, unspecified; Z85.118 Personal history of other malignant neoplasm of bronchus and lung; Z92.3 Personal history of irradiation; Z90.2 Acquired absence of lung [part of]; Z85.3 Personal history of malignant neoplasm of breast; M19.90 Unspecified osteoarthritis, unspecified site; Z96.652 Presence of left artificial knee joint; Z90.49 Acquired absence of other specified parts of digestive tract; Z66 Do not resuscitate; Z79.899 Other long term (current) drug therapy; Z88.0 Allergy status to penicillin; Z88.1 Allergy status to other antibiotic agents; Z88.2 Allergy status to sulfonamides; Z91.040 Latex allergy status; E55.9 Vitamin D deficiency, unspecified

== ENCOUNTER → 2022-02-21 | Outpatient (CLI) | payer MEDICARE ==
[~2022-02-21] MED LIST changes: +LEVO1TAB38 PO; +LEVO1TAB40 PO; -LEVO250T3 PO
[2022-02-21 10:20] LABS: HEMATOCRIT 38.2 % (36.0-47.0); HEMOGLOBIN 12.8 g/dl (12.0-15.5); MEAN CORPUSCULAR HEMOGLOBIN 32.3 pg (27.0-33.0); MEAN CORPUSCULAR HGB CONC 33.5 g/dl (32.0-36.5); MEAN CORPUSCULAR VOLUME 96.5 fl (80.0-96.0); PLATELET COUNT, AUTOMATED 176 10^3/uL (150-450); RED BLOOD COUNT 3.96 10^6/uL (4.00-5.40); WHITE BLOOD COUNT 4.7 10^3/uL (4.0-10.0)
[2022-02-21 11:05] LABS: ALBUMIN 3.3 GM/DL (3.2-5.2); ALT/SGPT 13 U/L (12-78); BILIRUBIN,TOTAL 0.8 MG/DL (0.2-1.0); BLOOD UREA NITROGEN 12 MG/DL (7-18); CALCIUM LEVEL 9.4 MG/DL (8.8-10.2); CARBON DIOXIDE LEVEL 29 MEQ/L (21-32); CHLORIDE LEVEL 96 MEQ/L (98-107); CHOLESTEROL LEVEL 170 MG/DL (<200); CHOLESTEROL RISK RATIO 2.297 (<5); CREATININE FOR GFR 0.74 MG/DL (0.55-1.30); FREE T4 1.77 NG/DL (0.76-1.46); GLOMERULAR FILTRATION RATE > 60.0 (>32); GLUCOSE, FASTING 77 MG/DL (70-100); HDL CHOLESTEROL 74 MG/DL (>40); LDL CHOLESTEROL 77 MG/DL (<100); NON-HDL-C 96 MG/DL; POTASSIUM SERUM 3.9 MEQ/L (3.5-5.1); SODIUM LEVEL 130 MEQ/L (136-145); THYROID STIMULATING HORMONE 0.336 uIU/ML (0.358-3.740); TOTAL PROTEIN 6.6 GM/DL (6.4-8.2); TRIGLYCERIDES LEVEL 93 MG/DL (<150)
[2022-02-21 11:54] LABS: TOTAL 25(OH) VITAMIN D 48.2 NG/ML (30.0-100.0)
== END ==
LOC: M WUC 09:21
PROVIDERS: ATTEND Internal Medicine Cardiovascular Disease
DX: E78.5 Hyperlipidemia, unspecified (principal); I10 Essential (primary) hypertension; E03.9 Hypothyroidism, unspecified; E55.9 Vitamin D deficiency, unspecified

== ENCOUNTER → 2022-02-21 | Outpatient (CLI) | payer MEDICARE | LOC: M WUC 09:19 | PROVIDERS: ATTEND Internal Medicine Cardiovascular Disease | DX: I10 Essential (primary) hypertension (principal); Z53.9 Procedure and treatment not carried out, unspecified reason ==